=== PATIENT | female | born 1945 | race Caucasian/White ===

== ENCOUNTER 2023-03-09 06:06 | Inpatient (IN) ==
--- NOTE | 2023-03-09 07:07 | Emergency Department Note ---
History of Present Illness General Chief complaint: Dizziness Stated complaint: DIZZY,FALL Time Seen by Provider: 03/09/23 06:55 Source: patient, family ( who is at the bedside), RN notes reviewed and old records reviewed (I have reviewed records from [facility] emergency department from [id number]) Mode of arrival: ambulatory Limitations: no limitations History of Present Illness This patient is a 77-year-old female who comes in after feeling weak. She fell 2 days ago and since has been very weak she cannot get out of bed she feels dizzy and her legs feel weak bilaterally. She was seen in [facility] yesterday and she brought some of the records with her it looks like she did have a CAT scan of the head and labs they were all deemed unremarkable and she was sent home her says she cannot get out of bed without assistance. She has no focal numbness or weakness. Denies chest pain or shortness of breath denies pain anywhere did not hit her head or get knocked out no blood or melena stool no nausea or vomiting denies any injuries. She just feels diffusely weak in her legs. Home Medications Medication Instructions Recorded Confirmed Type omega-3 fatty acids 1,000 mg 1,000 mg PO DAILY #30 caps 09/12/20 03/09/23 Rx capsule Saccharomyces boulardii 250 mg 5,000 mmu cells PO DAILY 09/21/21 03/09/23 History capsule (Daily Probiotic (S. boulardii)) sennosides 8.6 mg tablet (Natural 8.6 mg PO DAILY 09/21/21 03/09/23 History Senna Laxative) biotin 2,500 mcg capsule 2,500 mcg PO QPM 03/22/22 03/09/23 History insulin aspart U-100 100 unit/mL See Rx Instructions subcut DAILY 03/22/22 03/09/23 History (3 mL) subcutaneous pen (Novolog PRN Other FlexPen U-100 Insulin aspart) lisinopril 20 mg tablet 20 mg PO QAM #90 tabs 06/12/22 03/09/23 Rx insulin NPH isoph U-100 human 100 22 unit subcut BID 09/30/22 03/09/23 History unit/mL subcutaneous suspension (Humulin N NPH U-100 Insulin (isophane susp)) venlafaxine 75 mg capsule,extended See Rx Instructions PO .COMPLEX 10/24/22 03/09/23 Rx release 24 hr #120 caps cholecalciferol (vitamin D3) 25 25 mcg PO QAM 11/25/22 03/09/23 History mcg (1,000 unit) capsule omeprazole 40 mg capsule,delayed 40 mg PO QAM 11/25/22 03/09/23 History release potassium chloride 10 mEq 10 meq PO QAM #30 caps 12/03/22 03/09/23 Rx capsule,extended release amlodipine 10 mg tablet (Norvasc) 10 mg PO DAILY #90 tabs 01/20/23 03/09/23 Rx alprazolam 0.5 mg tablet 0.5 mg PO TID anxiety #90 tabs 01/23/23 03/09/23 Rx metformin 500 mg tablet 500 mg PO BID #60 tabs 01/31/23 03/09/23 Rx alprazolam 0.5 mg tablet (Xanax) 0.5 mg PO TID 02/12/23 03/09/23 History rosuvastatin 10 mg tablet 10 mg PO DAILY #30 tabs 02/12/23 03/09/23 Rx metoprolol succinate 50 mg 50 mg PO DAILY #30 tabs 02/13/23 03/09/23 Rx tablet,extended release 24 hr meloxicam 7.5 mg tablet 7.5 mg PO BID #30 tabs 03/03/23 03/09/23 Rx Allergies Allergy/AdvReac Type Severity Reaction Status Date / Time adhesive tape Allergy Redness of Verified 02/13/23 10:29 Skin No Known Drug Allergies Allergy Verified 02/13/23 10:29 Past Med/Surg History Medical History Sleep apnea no device GERD (gastroesophageal reflux disease) Hypertension History of COVID-06 Feb 2021 > not hospitalized Moderate aortic valve stenosis follows with Dr. Pozo Anxiety and depression Diabetes mellitus type 2, insulin dependent Hyperlipidemia Surgical History History of rotator cuff surgery Operation Date: 12/30/22 07:30 Actual Procedures p Right Shoulder: Arthroscopy, massive rotator Cuff Repair, Subacromial Decompression(Right) - Cuco Mancia MD History of breast biopsy benign History of hysterectomy History of colonoscopy History of cataract surgery bilat S/P hysterectomy S/P hernia repair Family History Sister Myocardial infarction Anxiety Depression Heart disease Hypertension Lung disease Mother Anxiety Depression Brother Anxiety Depression Heart disease Hypertension Father Diabetes Heart disease Hypertension Denies family history of Colon cancer Ovarian cancer Prostate cancer Breast cancer Social History Smoking Status: Never smoker Second Hand Exposure: No; Do You Dip or Chew Tobacco: No; Hx Alcohol Use: No Hx Substance Use: No Preferred Language: Polish Communication Ability: Effective Visual Impairment: No Limitations Hearing Ability: Normal Facilities Technician Required: No Beliefs That Will Affect Care: None marital status: Current Living Situation: Spouse current occupational status: retired Feels Safe at Home: Yes Childhood Exposure to Second-Hand Smoke: No Diet: other Dental Care, Regularly: Yes Physical Activity Frequency: 1-2 Times per Week Seatbelt Use: always Sunscreen Use: Yes Assistive Devices: Cane, Raised Toilet Seat and Walker Review of Systems A total of 10 systems reviewed and were otherwise negative Physical Exam Vital Signs Vital Signs - 24 hr 03/09/23 06:12 03/09/23 06:30 03/09/23 07:00 Temperature 36.7 C Temperature Source Oral Pulse Rate 120 H 120 H 112 H Pulse Rate [Left Finger] Respiratory Rate 18 24 Respiratory Effort / Characteristics Non-Labored Spontaneous Respiratory Depth Normal Respiratory Pattern Regular Blood Pressure 154/71 H 153/74 H Blood Pressure [Left Arm] Blood Pressure Mean 98 110 Blood Pressure Mean [Left Arm] Blood Pressure Position Sitting Blood Pressure Position [Left Arm] Pulse Oximetry 95 98 Oxygen Delivery Method Room Air Sepsis Recent Fever Within 48 Hours No Sepsis New/Unexplained Change in Mental Status N/A Sepsis Action Taken by Nursing No Action Required 03/09/23 07:30 03/09/23 08:00 03/09/23 09:12 Temperature Temperature Source Pulse Rate 111 H 114 H 117 H Pulse Rate [Left Finger] Respiratory Rate 22 24 24 Respiratory Effort / Characteristics Respiratory Depth Respiratory Pattern Blood Pressure 170/79 H 148/93 H Blood Pressure [Left Arm] Blood Pressure Mean 128 112 Blood Pressure Mean [Left Arm] Blood Pressure Position Blood Pressure Position [Left Arm] Pulse Oximetry 98 96 Oxygen Delivery Method Sepsis Recent Fever Within 48 Hours Sepsis New/Unexplained Change in Mental Status Sepsis Action Taken by Nursing 03/09/23 10:12 Temperature Temperature Source Pulse Rate Pulse Rate [Left Finger] 77 Respiratory Rate 20 Respiratory Effort / Characteristics Respiratory Depth Respiratory Pattern Blood Pressure Blood Pressure [Left Arm] 171/118 H Blood Pressure Mean Blood Pressure Mean [Left Arm] 135 Blood Pressure Position Blood Pressure Position [Left Arm] Sitting Pulse Oximetry 98 Oxygen Delivery Method Sepsis Recent Fever Within 48 Hours Sepsis New/Unexplained Change in Mental Status Sepsis Action Taken by Nursing General: Well developed well nourished older female who appears in no acute distress, breathing comfortably on room air. Normal speech HEENT: Normal cephalic atraumatic. Pupils are equal round and reactive to light. Extraocular movements are intact. Oropharynx is pink with moist mucous membranes. No swelling of the mouth lips or tongue. Neck: Supple with a midline trachea. No meningeal signs or stiffness, no JVD or bruits. No Stridor. Chest: Clear to auscultation bilaterally. No wheezes or rhonchi. No increased work of breathing. Heart: Regular rate and rhythm. She is mildly tachycardic with a heart rate of about 115 without murmurs or gallops. Abdomen: Soft nontender, nondistended without rebound guarding or rigidity. Extremities: No cyanosis clubbing or edema. No calf tenderness or assymetry Spine/Back. Non tender to palpation. No CVA tenderness Skin: Good turgor without rashes. Neurologic exam: Cranial nerves two through 12 are intact. Motor and sensation are intact and symmetrical throughout. Course Administered Medications Discontinued Medications Lactated Ringer's (Lr) 1,000 mls @ 999 mls/hr IV .Q1H1M ONE Stop: 03/09/23 12:32 Last Admin: 03/09/23 12:46 Dose: 999 mls/hr Documented By: SEEMA Magnesium Sulfate/Dextrose (Magnesium Sulfate / D5w) 1 gm in 100 mls @ 100 mls/hr IV Q1H LO Stop: 03/09/23 13:31 Last Admin: 03/09/23 13:53 Dose: 100 mls/hr Documented By: Infusion: 03/09/23 13:46 Dose: Infused Documented By: Admin: 03/09/23 12:46 Dose: 100 mls/hr Documented By: SEEMA Magnesium Sulfate/Dextrose (Magnesium Sulfate 1gm / D5w Bag) Confirm Administered Dose 1 gm IV .STK-MED ONE Stop: 03/09/23 12:37 Last Admin: 03/09/23 12:46 Dose: Not Given Documented By: SEEMA Metoprolol Succinate (Metoprolol Succ 50mg Ext Rel Tab) 50 mg PO NOW STA Stop: 03/09/23 12:01 Last Admin: 03/09/23 13:55 Dose: 50 mg Documented By: SEEMA Medical Decision Making Differential Diagnosis Weakness, fall, dehydration, cardiac disease, traumatic injuries, arrhythmia, electrolyte or metabolic abnormality, anemia, endocrinologic Medical Records Attestation: I reviewed the patient's medical records. Home Medications Current Medication List: was personally reviewed by me Laboratory Data Attestation: I reviewed the patient's lab results. 03/09/23 08:44 03/09/23 08:44 Lab Results 03/09/23 03/09/23 03/09/23 Range/Units 08:44 08:54 10:10 WBC 5.35 (4.8-10.8) K/ul RBC 3.76 L (4.20-5.40) M/uL Hgb 11.7 L (12.0-16.0) g/dl Hct 35.3 L (37.0-47.0) % MCV 93.9 (80.0-100.0) fL MCH 31.1 (25.0-34.0) pg MCHC 33.1 (32.0-36.0) g/dL RDW Std Deviation 45.5 (36.4-46.3) fL RDW Coeff of Lori 13.2 (11.5-14.5) % Plt Count 224 (130-400) K/uL MPV 10.2 (9.4-12.4) fL Immature Gran % (Auto) 0.4 % Neut % (Auto) 82.2 % Lymph % (Auto) 12.9 % [place] % (Auto) 3.9 % Eos % (Auto) 0.0 % Baso % (Auto) 0.6 % Neut # (Auto) 4.40 (1.40-6.50) K/uL Lymph # (Auto) 0.69 L (1.20-3.40) K/uL [place] # (Auto) 0.21 (0.11-0.59) K/uL Eos # (Auto) 0.00 (0.00-0.50) K/uL Baso # (Auto) 0.03 (0.00-0.20) K/uL Immature Gran # (Auto) 0.02 (0.01-0.20) K/uL Sodium 131 L (136-145) mmol/L Potassium 3.9 (3.5-5.1) mmol/L Chloride 96 L (98-107) mmol/L Carbon Dioxide 26 (21-32) mmol/L Anion Gap 9 (3-11) BUN 14 (6-23) mg/dl Creatinine 0.68 (0.6-1.2) mg/dl Est Cr Clr Drug Dosing 64.4 ml/min Est GFR ( Amer) 96.4 ml/min Est GFR (Non-Af Amer) 83.2 ml/min BUN/Creatinine Ratio 20.6 H (10-20) Glucose 195 H (70-99(Fasting)) mg/dl Calcium 9.2 (8.6-10.3) mg/dl Magnesium 1.6 L (1.7-2.4) mg/dl Total Bilirubin 0.3 (0.2-1.0) mg/dl AST 51 H (13-39) U/L ALT 54 H (7-52) U/L Alkaline Phosphatase 80 (34-104) U/L Troponin I High Sens 16.5 H (0-14) pg/ml Total Protein 6.7 (6.0-8.3) gm/dl Albumin 3.5 (3.4-5.0) gm/dl Globulin 3.2 (2.5-4.0) gm/dl Albumin/Globulin Ratio 1.1 (0.9-2) Procalcitonin 0.28 (0-0.5) ng/ml TSH 0.468 (0.300-4.500) uIu/ml Urine Color Yellow Urine Appearance Clear (Clear) Urine pH 5.5 (4.5-7.5) Ur Specific [place] 1.016 (1.000-1.030) Urine Protein Negative (Negative) Urine Glucose (UA) Negative (Negative) Urine Ketones Trace H (Negative) Urine Blood Negative (Negative) Urine Nitrite Negative (Negative) Urine Bilirubin Negative (Negative) Urine Urobilinogen Negative (Negative) Ur Leukocyte Esterase Negative (Negative) Anaplasma Smear See Comment Babesia Smear See Comment Lyme Disease IgG Ab Negative (Negative) Lyme Disease IgM Ab Negative (Negative) SARS-CoV-2 (PCR) NEGATIVE (Negative) Imaging Data Attestation: I personally reviewed and interpreted this imaging study as follows: My Impression: Chest x-monica per my interpretationno acute infiltrate, failure, pneumothorax seen Head CTno hemorrhage or mass effect seen Radiologist's Impression: Chest X-Ray 03/09/23 07:57 XR chest 1V portable HISTORY: weakness COMPARISON: Chest 09/06/2021. FINDINGS: The cardiac silhouette remains mildly enlarged. The lungs are clear. No pleural effusions. No pneumothorax. No evidence for pulmonary edema. Mild elevation of the right hemidiaphragm, unchanged. IMPRESSION: No significant change compared to the prior study. No acute process. ACT 112: Negative or not required by law. Electronically signed by: London Rodriguez M.D. 03/09/2023 8:[address] 03/09/23 07:[address] DOSE: 625.8 mGy.cm HISTORY: Confusion. Altered mental status. weakness TECHNIQUE: Multiaxial CT images of the head were performed without the use of intravenous contrast. Automated exposure control was utilized for this study. A dose lowering technique was utilized adhering to the principles of ALARA. Comparison: Head CT 09/06/2021. Findings: The paranasal sinuses and mastoid air cells are clear. The calvarium and skull base are intact. There is no mass, hematoma, midline shift, acute infarct. White matter hypodensity is nonspecific but suggestive of microvascular ischemic change. The ventricles and sulci demonstrate mild age-related involutional changes. Impression: No acute intracranial abnormality. Atrophy and microvascular ischemic changes. ACT 112: Negative or not required by law. Electronically signed by: London Rodriguez M.D. 03/09/2023 9:25 AM Abdomen/Pelvis CT 03/09/23 10:[address] WITHOUT CONTRAST CT DOSE: 1320.27 mGy.cm HISTORY: eval for trauma-hip and back pain TECHNIQUE: Multiaxial CT images of the abdomen and pelvis were performed without contrast. A dose lowering technique was utilized adhering to the principles of ALARA. COMPARISON STUDY: None. FINDINGS: Respiratory motion artifact results in suboptimal evaluation of the lung bases. However, no focal lung consolidations identified. No acute fractures identified. Suture material noted within the lower midline abdominal wall. Degenerative changes again noted within the lower lumbar spine. Suboptimal evaluation of the solid abdominal viscera due to the lack of intravenous contrast. However, the unenhanced gallbladder, pancreas, spleen, and adrenal glands unremarkable. There is mild hepatic steatosis. No renal stones or hydronephrosis. There is a 2.8 cm hyperdense lesion within the left kidney. This is incompletely characters on this noncontrast study but may represent a hyperdense cyst. No retroperitoneal hematoma or lymphadenopathy. Mild calcified plaque within the normal caliber abdominal aorta. No pelvic lymphadenopathy or pelvic free fluid. Normal bladder. Prior hysterectomy. The appendix is surgically absent. Suboptimal evaluation for bowel pathology due to the lack of intravenous and oral contrast. However, there is no definite bowel wall thickening or obstruction. Colonic diverticulosis. No evidence for acute diverticulitis. IMPRESSION: 1. No acute traumatic process within the abdomen or pelvis. 2. No bowel wall thickening or obstruction. 3. Mild hepatic steatosis. 4. Colonic diverticulosis. No evidence for acute diverticulitis. 5. Degenerative changes within the lower lumbar spine again noted. 6. An indeterminate 2.8 cm hypodense lesion within the left kidney. This favors a hyperdense cyst. Follow-up nonemergent renal ultrasound can be used for confirmation. ACT 112: Negative or not required by law. Electronically signed by: London Rodriguez M.D. 03/09/2023 1:[address] 03/09/23 10:[address] DOSE: HISTORY: fall TECHNIQUE: Multiaxial CT images of the lumbar spine were performed and reformatted in the sagittal and coronal plane without the use of contrast. A dose lowering technique was utilized adhering to the principles of ALARA. COMPARISON: None. FINDINGS: No acute fractures within the lumbar spine. The visualized sacrum is intact. There is 4 mm of anterolisthesis of L4 on L5. This is likely due to long-standing degenerative change. Moderate to severe facet degenerative changes within the lower lumbar spine. This spaces are preserved. Paravertebral soft tissues are unremarkable. There is moderate central canal narrowing at L4-L5 due to a small broad-based posterior disc bulge and ligamentum flavum and facet hypertrophy. There is moderate central canal narrowing at L5-S1 due to a broad- based posterior disc bulge. IMPRESSION: 1. No fractures within the lumbar spine. 2. Degenerative changes as described above. ACT 112: Negative or not required by law. Electronically signed by: London Rodriguez M.D. 03/09/2023 12:55 PM ECG Data Attestation: I personally reviewed and interpreted this ECG as follows: Indication: + weakness Rate (beats per minute): 120 Rhythm: + sinus tachycardia ECG Intervals/blocks: + Incomplete right bundle branch block ECG [place]: + Normal ECG ST segments: + Nonspecific ST abnormalities ECG Findings: no PACs or no PVCs Comparison ECG Date: from (02/13/23) Change: no significant change MDM Narrative This patient comes in as scribed above. she is feeling generally weak and she fell a couple days ago denies any injuries or trauma. She feels dizzy when she stands. Blood work was obtained. IV access was was ordered. EKG shows sinus tachycardia without any ischemic changes and no change when compared to the old one. I have reviewed her labs from [facility] that were done yesterday. I did order multiple labs cardiac monitoring EKG chest x-ray and neuroimaging. She was reassessed frequently. On exam she has no focal neurologic deficit that she is seems diffusely weak. CAT scan of her head is unremarkable she has had some back and hip pain but some that seems chronic but I did do a CAT scan and there is no acute traumatic injuries seen she has no significant acrylate or metabolic abnormalities. Her feels she cannot take care of her at home and she is gotten increasingly more weak I think a lot of this is deconditioning after she had her shoulder surgery at the end of the summer she has never been quite the same. I do think that she needs to be admitted/observed for further treatment evaluation consulted the [facility] to see her for these measures. Continuous cardiac monitoring: Orders placed in EMR for continuous cart monitor: Upon my evaluation patient noted to be in sinus tachycardia with rate 115 Impression & Plan Weakness, Dizziness, Fall, Sinus tachycardia Discharge Plan Visit Data Chief Complaint: Dizziness Stated Complaint: DIZZY,FALL ED Provider: Brock Puentes Discharge Problem: Weakness, Dizziness, Fall, Sinus tachycardia Discharge Instructions Interventions: ED Discharge Assessment Last Done: 03/09/23 13:28 Discharge Problem: Fall Qualifiers: Encounter type: initial encounter Qualified Code(s): W19.XXXA - Unspecified fall, initial encounter
--- NOTE | 2023-03-09 08:45 | XRay Report ---
XR chest 1V portable HISTORY: weakness COMPARISON: Chest 09/06/2021. FINDINGS: The cardiac silhouette remains mildly enlarged. The lungs are clear. No pleural effusions. No pneumothorax. No evidence for pulmonary edema. Mild elevation of the right hemidiaphragm, unchange d. IMPRESSION: No significant change compared to the prior study. No acute process. ACT 112: Negative or not required by law. Electronically signed by: London Rodriguez M.D. 03/09/2023 8:43 AM
[2023-03-09 09:12] LABS: Appearance Urine Clear (Clear); Bilirubin Urine Negative (Negative); Blood Urine Negative (Negative); Color Urine Yellow; Glucose Urine UA Negative (Negative); Ketones Urine Trace (Negative); Leukocyte Esterase Urine Negative (Negative); Nitrite Urine Negative (Negative); Protein Urine Negative (Negative); Specific Gravity Urine 1.016 (1.000-1.030); Urobilinogen Urine Negative (Negative); pH Urine 5.5 (4.5-7.5)
[2023-03-09 09:15] LABS: Hematocrit (blood only) 35.3 % (37.0-47.0); Hemoglobin 11.7 g/dl (12.0-16.0); Mean Corpuscular Hemoglobin 31.1 pg (25.0-34.0); Mean Corpuscular Hgb Conc 33.1 g/dL (32.0-36.0); Mean Corpuscular Volume 93.9 fL (80.0-100.0); Mean Platelet Volume 10.2 fL (9.4-12.4); Platelet Count 224 K/uL (130-400); RDW Coefficient of Variation 13.2 % (11.5-14.5); RDW Standard Deviation 45.5 fL (36.4-46.3); Red Blood Count 3.76 M/uL (4.20-5.40); White Blood Count 5.35 K/ul (4.8-10.8)
--- NOTE | 2023-03-09 09:26 | CT Scan Report ---
HEAD CT NONCONTRAST CT DOSE: 625.8 mGy.cm HISTORY: Confusion. Altered mental status. weakness TECHNIQUE: Multiaxial CT images of the head were performed without the use of intravenous contrast. A utomated exposure control was utilized for this study. A dose lowering technique was utilized adheri ng to the principles of ALARA. Comparison: Head CT 09/06/2021. Findings: The paranasal sinuses and mastoid air cells are clear. The calvarium and skull base are int act. There is no mass, hematoma, midline shift, acute infarct. White matter hypodensity is nonspecifi c but suggestive of microvascular ischemic change. The ventricles and sulci demonstrate mild age-rela leatha involutional changes. Impression: No acute intracranial abnormality. Atrophy and microvascular ischemic changes. ACT 112: Negative or not required by law. Electronically signed by: London Rodriguez M.D. 03/09/2023 9:25 AM
[2023-03-09 09:34] LABS: Albumin Globulin Ratio 1.1 (0.9-2); Albumin Level 3.5 gm/dl (3.4-5.0); BUN Creatinine Ratio 20.6 (10-20); Bilirubin,Total 0.3 mg/dl (0.2-1.0); Calcium 9.2 mg/dl (8.6-10.3); Creatinine Clr Calc Pharmacy 64.4 ml/min; Est GFR (African American) 96.4 ml/min; Est GFR (Non-African American) 83.2 ml/min; Globulin 3.2 gm/dl (2.5-4.0); Magnesium 1.6 mg/dl (1.7-2.4); Potassium 3.9 mmol/L (3.5-5.1); Total Protein 6.7 gm/dl (6.0-8.3)
[2023-03-09 09:38] LABS: Basophils # (auto) 0.03 K/uL (0.00-0.20); Basophils % (auto) 0.6 %; Immature Granulocytes # (auto) 0.02 K/uL (0.01-0.20); Immature Granulocytes % (auto) 0.4 %; Lymphocytes # (auto) 0.69 K/uL (1.20-3.40); Lymphocytes % (auto) 12.9 %; Monocytes # (auto) 0.21 K/uL (0.11-0.59); Monocytes % (auto) 3.9 %; Neutrophils % (auto) 82.2 %
[2023-03-09 09:40] LABS: Troponin I High Sensitivity 16.5 pg/ml (0-14)
[2023-03-09 09:49] LABS: Thyroid Stimulating Hormone 0.468 uIu/ml (0.300-4.500)
--- NOTE | 2023-03-09 10:34 | History & Physical Report ---
Date of Service March 09, 2023 Assessment & Plan (1) Weakness: Plan: -Admit to med/tele -Currently stable and non-toxic appearing -Patient has been experiencing progressive, generalized weakness since her right rotator cuff repair in December -Has had 2 falls in the past 48 hours because of the weakness -CT head and chest xray WNL, no focal neuro defects on exam -At this time her progressive, generalized weakness appears to be associated with continued deconditioning since her rotator cuff repair -No obvious sign of infection at this time as WBC is WNL and she has been afebrile -She is lymphopenic with mildly elevated LFT's, will obtain blood cultures and tick borne workup for further evaluation -She has a mildly decreased Hct of 35, will obtain iron studies, B12, Folic acid, and B1 levels -Also noted to have a mag of 1.6, will obtain phos level -Is covid 19 negative, will obtain full respiratory biofire to rule out other viral illnesses that could be contributing -Fall and aspiration precautions -PT/OT consults -Will give 1L LR on admission as she appears dehydrated -SQ lovenox for DVT PPX -AM CBC, CMP, mag, PT/INR (2) Fall: Plan: -Has had 2 falls in the last 48 hours -CT head and CXR were WNL -Mild lumbar spine, right buttocks, and right hip pain -Bruising on the dorsal aspect of the right foot -Will follow lumbar/abd/pelvis CT's and will obtain xray of the right foot -Fall precautions, PT/OT -Continue to monitor on tele (3) Lightheadedness: Plan: -Sounds more consistent with possible orthostasis as it occurs when she stands -Denies other neuro symptoms -Is dehydrated on exam today, will give 1L LR on admission -Will hold amlodipine but continue lisinopril and metoprolol for now -Monitor on tele -Will obtain repeat echo (4) Elevated LFTs: Plan: -AST and ALT minimally elevated today -Denies alcohol use or significant acetaminophen use -Will follow tick borne workup and CT of abd/pelvis -Hold hepatotoxic agents -Trend CMP daily until stable (5) Tachycardia: Plan: -Sinus tachycardia on ECG -Likely due to dehydration and significant anxiety -Denies chest pain, heart palpitations, SOB -Continue infectious BLUM -Continue to monitor on tele, Echo -IV fluids -Will give am dose of metoprolol as she missed it because of ED arrival (6) Elevated troponin: Plan: -Initial high sen trop at 16 -Patient denies chest pain, MORRIS, SOB -No acute ST segment or T-wave changes -Likely due demand from recent falls -Will obtain 2 hour repeat, monitor on tele -Follow echo (7) Hypomagnesemia: Plan: -1.6 in the ED -Likely due to poor oral intake -Will give 2 bags, 1gm mag sulfate -Monitor on tele, monitor am mag level (8) Hypertension: Plan: -Stable -Hold amlodipine in case of orthostasis -Continue metoprolol and lisinopril for now (9) Sleep apnea: Plan: -HS CPAP ordered (10) Diabetes mellitus type 2, insulin dependent: Plan: -Hold metformin -Monitor BSG ACHS, goal is 110-140 -Will start conservative management due to poor oral intake -CF of 50 ACHS and 5 units lantus BID -HH/DMII diet -AM A1c -Pharmacy glycemic consult (11) Anxiety and depression: Plan: -Continue Venlafaxine -Will continue TID xanax for now to prevent withdrawal but would recommend trying to wean as able Plan The patient was discussed with Dr. Bauman at the time of the admission History of Present Illness Chief Complaint: Dizziness, BL LE weakness Primary Care Provider: Lilian Oh MD Dorita is a 77 year old female with a PMH significant for anxiety/depression, DMII with peripheral neuropathy, hyperlipidemia, HTN, JONATHON, moderate aortic stenosis, and OA who presented to the [facility] ED on 03/09 with her for generalized weakness, ambulatory dysfunction, dizziness, and recent fall. She was noted to be tachycardic with HR of 120 but was otherwise stable. Labs were significant for lymphopenia of 0.69, sodium of 133, mag of 1.6, AST of 51, ALT of 54, and initial high sen trop of 16.5. CT head wo con was read as "No acute intracranial abnormality. Atrophy and microvascular ischemic changes. ". Chest xray was read as "No significant change compared to the prior study. No acute process.". ECG showed sinus tachycardiac without acute ST segment or T-wave changes compared to previous. We were asked to admit the patient for ongoing weakness and possible rehab/snf placement. At the time of the exam the patient was sitting in bed in no acute distress with her sitting bedside, history was obtained from both. They state that since the patient's right rotator cuff repair in December she has had a continued clinical decline. They state that she did go to a SNF for rehab after her shoulder surgery but she did not feel as though it helped her weakness. Over the past few weeks she has had poor oral intake, poor sleep, and has had 2 falls out of bed in the past 48 hours. The first fall occurred when she was rolling in bed and didn't realize how close to the edge of the bed she was. She rolled out of bed, landed on her left side, and was stuck between the bed and bedside table. Her helped her up once she woke him by yelling, they are unsure how long she was on the ground for. She was evaluated in the [facility] ED after the fall where they did a CT head and labs. They gave her IV fluids and discharged her home. This am she tried to get out of bed herself to go to the bathroom around 0500. Her legs were too weak when standing and she fell to the ground. She denies hitting her head or losing consciousness. She confirms that her weakness is generalized and symmetrical. She does note lightheadedness when standing over the past 2-3 months. She denies the sensation that the room is spinning, changes in vision, hearing, taste, smell, paresthesias, unilateral weakness[place] not noticed any insect bites that they know of. She still has significant pain and weakness in her right shoulder since the rotator cuff repair. She denies fever, chest pain, SOB, cough, nausea, vomiting, abd pain, dysuria, hematuria, melena, diarrhea, bloody BM's, and increased LE swelling. She currently has mild right buttocks/hip pain and low back pain since her falls. They confirm that they want her to go to inpatient rehab on discharge before trying to go back home. She is a DNR/DNI and her would be her primary decision maker if she can't make decisions herself. Please refer to Dr. Bauman's attestation for any changes to the treatment plan Allergies Allergy/AdvReac Type Severity Reaction Status Date / Time adhesive tape Allergy Redness of Verified 02/13/23 10:29 Skin No Known Drug Allergies Allergy Verified 02/13/23 10:29 Home Medications Medication Instructions Recorded Confirmed Type omega-3 fatty acids 1,000 mg 1,000 mg PO DAILY #30 caps 09/12/20 03/09/23 Rx capsule Saccharomyces boulardii 250 mg 5,000 mmu cells PO DAILY 09/21/21 03/09/23 History capsule (Daily Probiotic (S. boulardii)) sennosides 8.6 mg tablet (Natural 8.6 mg PO DAILY 09/21/21 03/09/23 History Senna Laxative) biotin 2,500 mcg capsule 2,500 mcg PO QPM 03/22/22 03/09/23 History insulin aspart U-100 100 unit/mL See Rx Instructions subcut DAILY 03/22/22 03/09/23 History (3 mL) subcutaneous pen (Novolog PRN Other FlexPen U-100 Insulin aspart) lisinopril 20 mg tablet 20 mg PO QAM #90 tabs 06/12/22 03/09/23 Rx insulin NPH isoph U-100 human 100 22 unit subcut BID 09/30/22 03/09/23 History unit/mL subcutaneous suspension (Humulin N NPH U-100 Insulin (isophane susp)) venlafaxine 75 mg capsule,extended See Rx Instructions PO .COMPLEX 10/24/22 03/09/23 Rx release 24 hr #120 caps cholecalciferol (vitamin D3) 25 25 mcg PO QAM 11/25/22 03/09/23 History mcg (1,000 unit) capsule omeprazole 40 mg capsule,delayed 40 mg PO QAM 11/25/22 03/09/23 History release potassium chloride 10 mEq 10 meq PO QAM #30 caps 12/03/22 03/09/23 Rx capsule,extended release amlodipine 10 mg tablet (Norvasc) 10 mg PO DAILY #90 tabs 01/20/23 03/09/23 Rx alprazolam 0.5 mg tablet 0.5 mg PO TID anxiety #90 tabs 01/23/23 03/09/23 Rx metformin 500 mg tablet 500 mg PO BID #60 tabs 01/31/23 03/09/23 Rx alprazolam 0.5 mg tablet (Xanax) 0.5 mg PO TID 02/12/23 03/09/23 History rosuvastatin 10 mg tablet 10 mg PO DAILY #30 tabs 02/12/23 03/09/23 Rx metoprolol succinate 50 mg 50 mg PO DAILY #30 tabs 02/13/23 03/09/23 Rx tablet,extended release 24 hr meloxicam 7.5 mg tablet 7.5 mg PO BID #30 tabs 03/03/23 03/09/23 Rx Past Med/Surg History Medical History Sleep apnea no device GERD (gastroesophageal reflux disease) Hypertension History of COVID-06 Feb 2021 > not hospitalized Moderate aortic valve stenosis follows with Dr. Pozo Anxiety and depression Diabetes mellitus type 2, insulin dependent Hyperlipidemia Surgical History History of rotator cuff surgery Operation Date: 12/30/22 07:30 Actual Procedures p Right Shoulder: Arthroscopy, massive rotator Cuff Repair, Subacromial Decompression(Right) - Cuco Mancia MD History of breast biopsy benign History of hysterectomy History of colonoscopy History of cataract surgery bilat S/P hysterectomy S/P hernia repair Family History Sister Myocardial infarction Anxiety Depression Heart disease Hypertension Lung disease Mother Anxiety Depression Brother Anxiety Depression Heart disease Hypertension Father Diabetes Heart disease Hypertension Denies family history of Colon cancer Ovarian cancer Prostate cancer Breast cancer Social History Smoking Status: Never smoker Second Hand Exposure: No; Do You Dip or Chew Tobacco: No; Hx Alcohol Use: No Hx Substance Use: No Preferred Language: Spanish Communication Ability: Effective Visual Impairment: No Limitations Hearing Ability: Normal Humanities Division Chair Required: No Beliefs That Will Affect Care: None marital status: Current Living Situation: Spouse current occupational status: retired Other Information That Helps Us Care for You: No Feels Safe at Home: Yes Safety Concerns: Feels Safe At This Time Childhood Exposure to Second-Hand Smoke: No Diet: other Dental Care, Regularly: Yes Physical Activity Frequency: 1-2 Times per Week Seatbelt Use: always Sunscreen Use: Yes Assistive Devices: Cane, Glasses and Walker Physical Exam Physical Exam: Physical Exam: General: In no acute distress, stated age, well-nourished, fatigued but non- toxic appearing HEENT: Normocephalic, atraumatic, no scleral icterus, pupils around round, symmetrical, and reactive to light, dry mucus membranes, trachea midline, no thyromegaly Chest/Pulm: No respiratory distress, symmetrical chest expansion, clear breath sounds throughout Cardiac: RRR, 3/6 systolic murmur noted Abdomen: Negative for ascites and bruising, normoactive bowel sounds, soft, non-tender to palpation throughout Musculoskeletal: No acute trauma on inspection and palpation of the face, head, cervical spine, thoracic spine, BL UE's, abd, and LLE. Patient with tenderness to palpation over the lumbar spine, right buttocks, right hip, and bruising over the medial, dorsal aspect of the right foot. Intact and symmetrical ROM of the LE's Extremities: Radial, dorsalis pedis, and posterior tibial pulses are intact and symmetrical, no edema noted in the LE's Skin: Warm, dry, no rashes , lesions, or scars noted Neuro: Alert and oriented to person, place, month, year, and president, no focal defects, CN II-XII tested and intact, no tremors noted Psych: No acute distress, calm and cooperative during the exam Results & Data Results & Data Vital Signs (Past 12 Hours) Vital Signs Temp Pulse Pulse Resp BP BP Pulse Ox 03/09/23 10:12 77 20 171/118 H 98 03/09/23 09:12 117 H 24 148/93 H 96 03/09/23 08:00 114 H 24 170/79 H 98 03/09/23 07:30 111 H 22 03/09/23 07:00 112 H 24 153/74 H 98 03/09/23 06:30 120 H 03/09/23 06:12 36.7 C 120 H 18 154/71 H 95 O2 Del Method 03/09/23 10:12 03/09/23 09:12 03/09/23 08:00 03/09/23 07:30 03/09/23 07:00 03/09/23 06:30 03/09/23 06:12 Room Air Laboratory Results Abnormal lab results 03/09/23 03/09/23 Range/Units 08:44 08:54 RBC 3.76 L (4.20-5.40) M/uL Hgb 11.7 L (12.0-16.0) g/dl Hct 35.3 L (37.0-47.0) % Lymph # (Auto) 0.69 L (1.20-3.40) K/uL Sodium 131 L (136-145) mmol/L Chloride 96 L (98-107) mmol/L BUN/Creatinine Ratio 20.6 H (10-20) Glucose 195 H (70-99(Fasting)) mg/dl Magnesium 1.6 L (1.7-2.4) mg/dl AST 51 H (13-39) U/L ALT 54 H (7-52) U/L Troponin I High Sens 16.5 H (0-14) pg/ml Urine Ketones Trace H (Negative) Diagnostic Findings Chest X-Ray 03/09/23 07:57 XR chest 1V portable HISTORY: weakness COMPARISON: Chest 09/06/2021. FINDINGS: The cardiac silhouette remains mildly enlarged. The lungs are clear. No pleural effusions. No pneumothorax. No evidence for pulmonary edema. Mild elevation of the right hemidiaphragm, unchanged. IMPRESSION: No significant change compared to the prior study. No acute process. ACT 112: Negative or not required by law. Electronically signed by: London Rodriguez M.D. 03/09/2023 8:[address] 03/09/23 07:[address] DOSE: 625.8 mGy.cm HISTORY: Confusion. Altered mental status. weakness TECHNIQUE: Multiaxial CT images of the head were performed without the use of intravenous contrast. Automated exposure control was utilized for this study. A dose lowering technique was utilized adhering to the principles of ALARA. Comparison: Head CT 09/06/2021. Findings: The paranasal sinuses and mastoid air cells are clear. The calvarium and skull base are intact. There is no mass, hematoma, midline shift, acute infarct. White matter hypodensity is nonspecific but suggestive of microvascular ischemic change. The ventricles and sulci demonstrate mild age-related involutional changes. Impression: No acute intracranial abnormality. Atrophy and microvascular ischemic changes. ACT 112: Negative or not required by law. Electronically signed by: London Rodriguez M.D. 03/09/2023 9:25 AM ECG Additional Comments: Sinus tachycardia Incomplete right bundle branch block Nonspecific ST abnormality Abnormal ECG When compared with ECG of 13-FEB-2023 10:47, (unconfirmed) No significant change was found Code Status & VTE Plan Code Status DNR/DNI VTE Prophylaxis Plan VTE Prophylaxis will be ordered: Yes Supervising Physician Co-Signing Physician Notes I personally saw and examined the patient. I verified all vasquez points and agree with Cuco Prajapati PA-C with the following exceptions and/or additions: 77 year old female presents to the ER with generalized weakness. Difficult to get a good timeline history from the patient. Per having progressive worsening symptoms since her shoulder surgery. no longer at bedside when seen. Per the patient she reports being unable to move her arms or legs despite using her phone when seen and objectively moving all 4 extremities. Cardiology notes fatigue being a longstanding issue with her therefore not clear this is acute. [place] not to be safe at home at this time. O/E A&Ox3, HS RRR, LUSB systolic murmur, Chest CTAB, Abdo SNT, no CVA tenderness, CN 2-> 12 intact, no UE co-ordination deficit, 5/5 power in all 4 extremities without sensation loss A/P Generalized weakness - suspect this is longstanding from her prior notes in EHR although will keep an open mind given clear concern from her and patient about a more acute deterioration. Generalized fatigue and confusion possibly points towards infective source although UA negative, procalcitonin negative, no source on history of exam, WBC normal - follow up blood cultures but no current indication for antibiotics. Tick borne labs also taken but nothing noted on smear. Most likely iatrogenic cause is her benzodiazepines - Will decrease Xanax to 0.25mg PO BID (she reports taking regularly 0.5mg PO BID). Patient does not endorse medications changes however atorvastatin started 01/04 and recently switched to rosuvastatin - despite CK normal will also hold statins due to possibility of myalgias from this. Possibility of PMR and ESR/CRP noted slightly elevated therefore could consider steroid trial once infection ruled out with blood cultures but certainly symptoms not typical of this as she doesn't exhibit stiffness. B12 level normal. Mg level low but do not suspect contributory. Doubtful hyponatremia contributory - will just repeat with AM labs. PT/OT - suspect will need placement for PT on discharge. She has no focal deficit on exam therefore do not suspect stroke or spinal pathology. PG Care Time/CCT Total # of Minutes Spent Total Time Spent with Patient: Total time spent is greater than 50% in coordination of care (as documented) at patient's floor/unit and/or counseling patient: Coding [place] [address] INT INP/OBS CARE 3/75MIN Patient Type Established Medical Decision Making Moderate Complexity Diagnoses Weakness R53.1 Fall W19.XXXA Encounter type: initial encounter Lightheadedness R42 Elevated LFTs R79.89 Tachycardia R00.0 Elevated troponin R79.89 Hypomagnesemia E83.42 Hypertension I10 Sleep apnea G47.30 Diabetes mellitus type 2, insulin dependent E11.9; Z79.4 Anxiety and depression F41.9; F32.9 (2) Fall Encounter type: initial encounter Qualified Code(s): W19.XXXA - Unspecified fall, initial encounter
[2023-03-09] MEDS ORDERED: LACTATED RINGER'S 1,000 ML IV ONE (11:32)
[2023-03-09] MEDS ORDERED: GLUCOSE 10 TAB/TUBE PO PRN (11:53)
[2023-03-09] MEDS ORDERED: CARBOHYDRATES FOR HYPOGLYCEMIA PO PRN (11:53)
[2023-03-09] MEDS ORDERED: DEXTROSE 50% 50 ML SYRINGE IV PRN (11:53)
[2023-03-09] MEDS ORDERED: GLUCOSE 40% GEL 15 GM TUBE PO PRN (11:53)
[2023-03-09] MEDS ORDERED: PHARMACY GLYCEMIC MGMT CONSULT PRN (11:53)
[2023-03-09] MEDS ORDERED: GLUCAGON FOR INJ 1 MG VIAL SQ PRN (11:53)
[2023-03-09] MEDS ORDERED: METOPROLOL SUCC 50MG EXT REL TAB PO STA (12:00)
[2023-03-09 12:21] LABS: Procalcitonin 0.28 ng/ml (0-0.5)
[2023-03-09 12:27] LABS: Lyme Ab IgG w/WB Rflx Negative (Negative); Lyme Ab IgM w/WB Rflx Negative (Negative)
[2023-03-09] MEDS ORDERED: MAGNESIUM SULFATE 1GM / D5W BAG IV ONE (12:36)
[2023-03-09] MEDS: MAGNESIUM SULFATE / D5W 1 GM/100 ML BAG IV SCH ×2 (12:46→13:53)
--- NOTE | 2023-03-09 12:56 | CT Scan Report ---
LUMBAR SPINE CT CT DOSE: HISTORY: fall TECHNIQUE: Multiaxial CT images of the lumbar spine were performed and reformatted in the sagittal an d coronal plane without the use of contrast. A dose lowering technique was utilized adhering to the principles of ALARA. COMPARISON: None. FINDINGS: No acute fractures within the lumbar spine. The visualized sacrum is intact. There is 4 mm of anterolisthesis of L4 on L5. This is likely due to long-standing degenerative change. Moderate to severe facet degenerative changes within the lower lumbar spine. This spaces are preserved. Paraverte bral soft tissues are unremarkable. There is moderate central canal narrowing at L4-L5 due to a small broad-based posterior disc bulge and ligamentum flavum and facet hypertrophy. There is moderate cent ral canal narrowing at L5-S1 due to a broad-based posterior disc bulge. IMPRESSION: 1. No fractures within the lumbar spine. 2. Degenerative changes as described above. ACT 112: Negative or not required by law. Electronically signed by: London Rodriguez M.D. 03/09/2023 12:55 PM
--- NOTE | 2023-03-09 13:03 | CT Scan Report ---
ABDOMEN AND PELVIS CT WITHOUT CONTRAST CT DOSE: 1320.27 mGy.cm HISTORY: eval for trauma-hip and back pain TECHNIQUE: Multiaxial CT images of the abdomen and pelvis were performed without contrast. A dose lo wering technique was utilized adhering to the principles of ALARA. COMPARISON STUDY: None. FINDINGS: Respiratory motion artifact results in suboptimal evaluation of the lung bases. However, no focal lung consolidations identified. No acute fractures identified. Suture material noted within th e lower midline abdominal wall. Degenerative changes again noted within the lower lumbar spine. Subop timal evaluation of the solid abdominal viscera due to the lack of intravenous contrast. However, the unenhanced gallbladder, pancreas, spleen, and adrenal glands unremarkable. There is mild hepatic alexander atosis. No renal stones or hydronephrosis. There is a 2.8 cm hyperdense lesion within the left kidney . This is incompletely characters on this noncontrast study but may represent a hyperdense cyst. No r etroperitoneal hematoma or lymphadenopathy. Mild calcified plaque within the normal caliber abdominal aorta. No pelvic lymphadenopathy or pelvic free fluid. Normal bladder. Prior hysterectomy. The appen americo is surgically absent. Suboptimal evaluation for bowel pathology due to the lack of intravenous an d oral contrast. However, there is no definite bowel wall thickening or obstruction. Colonic divertic ulosis. No evidence for acute diverticulitis. IMPRESSION: 1. No acute traumatic process within the abdomen or pelvis. 2. No bowel wall thickening or obstruction. 3. Mild hepatic steatosis. 4. Colonic diverticulosis. No evidence for acute diverticulitis. 5. Degenerative changes within the lower lumbar spine again noted. 6. An indeterminate 2.8 cm hypodense lesion within the left kidney. This favors a hyperdense cyst. Fo llow-up nonemergent renal ultrasound can be used for confirmation. ACT 112: Negative or not required by law. Electronically signed by: London Rodriguez M.D. 03/09/2023 1:01 PM
[2023-03-09 13:15] LABS: Phosphorus 2.7 mg/dl (2.5-4.9)
[2023-03-09 13:21] LABS: Troponin I High Sensitivity 17.6 pg/ml (0-14)
--- NOTE | 2023-03-09 13:22 | XRay Report ---
XR foot RT min 3V routine CLINICAL HISTORY: fall, right foot bruising/pain COMPARISON STUDY: None. FINDINGS: No fracture or dislocation within the right foot. Mild vascular calcifications are noted. N o significant soft tissue swelling. Prkt-uc-iyevoyos degenerative changes seen throughout the right f oot. No radiopaque foreign bodies. The Lisfranc joint is aligned. IMPRESSION: No acute fractures within the right foot. ACT 112: Negative or not required by law. Electronically signed by: London Rodriguez M.D. 03/09/2023 1:20 PM
[2023-03-09 13:40] LABS: Folate (Folic Acid),Ser orPlas > 22.30 ng/ml (>5.38)
[2023-03-09 13:41] LABS: Vitamin B12 631 pg/ml (180-914)
[2023-03-09] MEDS ORDERED: ALPRAZolam 0.5 MG TABLET PO SCH ×2 (14:00)
--- NOTE | 2023-03-09 14:50 | Pharmacy Report ---
Pharmacy Glycemic Short Note 2 - Date of Service March 09, 2023 - Glycemic Short BSG Results (Last 24 hours): 03/09/23 03/09/23 08:44 13:59 Glucose 195 H POC Glucose 177 H OUTPATIENT ANTIDIABETIC REGIMEN: * Novolin N 20-22 units SC BID * Novolog SC SSI * Metformin 500 mg PO BIDM * HbA1c pending ASSESSMENT: * 77 yo F admitted on 03/09/23 secondary to generalized weakness and ambulatory dysfunction. Pharmacy has been consulted to assist with inpatient glycemic management. Patient is a Type 2 diabetic as an outpatient. Please refer to outpatient regimen and most recent HbA1c above. * BSG this AM was 195 mg/dL. Lunchtime BSG was 177 mg/dL. Last doses of insulin/metformin was last night. * Insulin will be based on previous admission data. Basal with dinner tonight. Reassess tomorrow. Novolog per weight/stress of 3 which is similar to previous admission. PLAN FOR INPATIENT GLYCEMIC CONTROL: * Hold outpatient oral diabetes medications * Basal insulin * Lantus 20 units SC w/ dinner * Bolus insulin * NovoLog per scale ACHS or Q6hrs while NPO * Goal Range: Low 110 mg/dL - High 140 mg/dL * Correction Factor: 20 mg/dL/unit * Nutritional / Prandial insulin per carb ratio of 1 unit per 7 grams CHO consumed
[2023-03-09 14:52] LABS: Adenovirus PCR Not Detected (NotDetected); Bordetella parapertussis PCR Not Detected (NotDetected); Bordetella pertussis PCR Not Detected (NotDetected); Chlamydia pneumoniae PCR Not Detected (NotDetected); Coronavirus 229E PCR Not Detected (NotDetected); Coronavirus CoV-2 (COVID19)PCR Not Detected (NotDetected); Coronavirus HKU1 PCR Not Detected (NotDetected); Coronavirus NL63 PCR Not Detected (NotDetected); Coronavirus OC43PCR Not Detected (NotDetected); Human Metapneumovirus PCR Not Detected (NotDetected); Influenza A PCR Not Detected (NotDetected); Influenza B PCR Not Detected (NotDetected); Mycoplasma pneumoniae PCR Not Detected (NotDetected); Parainfluenza Virus 1 PCR Not Detected (NotDetected); Parainfluenza Virus 2 PCR Not Detected (NotDetected); Parainfluenza Virus 3 PCR Not Detected (NotDetected); Parainfluenza Virus 4 PCR Not Detected (NotDetected); Respiratory Syncytial VirusPCR Not Detected (NotDetected); Rhinovirus/Enterovirus PCR Not Detected (NotDetected)
[2023-03-09 15:36] LABS: Ferritin 246.7 ng/ml (8-388)
[2023-03-09 16:00] LABS: C Reactive Protein 9.92 mg/dl (0-0.5)
[2023-03-09] MEDS ORDERED: LANTUS PER UNIT CHARGE SQ SCH (16:30)
[2023-03-09] MEDS ORDERED: INSULIN ASPART PER UNIT CHARGE SC SCH (16:30)
[2023-03-09] MEDS: ENOXAPARIN INJ 40 MG/0.4 ML SYR SQ SCH (17:04)
[2023-03-09] MEDS: INSULIN ASPART PER UNIT CHARGE SC SCH ×3 (18:50→22:07)
--- NOTE | 2023-03-09 21:42 | XCELERA ---
[id number]
[2023-03-09] MEDS ORDERED: ALPRAZolam 0.5 MG TABLET ONE (22:03)
[2023-03-09] MEDS: VENLAFAXINE HCL XR 75 MG CAPXR PO SCH (22:07)
[2023-03-09] MEDS: ALPRAZolam 0.25 MG TABLET PO SCH (22:07)
[2023-03-10] MEDS ORDERED: HALOPERIDOL LACTATE 5 MG/ML 1 ML VIAL IM STA (00:31)
[2023-03-10] MEDS: ACETAMINOPHEN 325 MG TAB PO PRN ×2 (00:50→05:47)
[2023-03-10 06:16] LABS: Basophils # (auto) 0.01 K/uL (0.00-0.20); Basophils % (auto) 0.2 %; Hematocrit (blood only) 37.4 % (37.0-47.0); Hemoglobin 12.6 g/dl (12.0-16.0); Immature Granulocytes # (auto) 0.02 K/uL (0.01-0.20); Immature Granulocytes % (auto) 0.4 %; Lymphocytes # (auto) 1.03 K/uL (1.20-3.40); Lymphocytes % (auto) 20.2 %; Mean Corpuscular Hemoglobin 30.8 pg (25.0-34.0); Mean Corpuscular Hgb Conc 33.7 g/dL (32.0-36.0); Mean Corpuscular Volume 91.4 fL (80.0-100.0); Mean Platelet Volume 10.6 fL (9.4-12.4); Monocytes # (auto) 0.22 K/uL (0.11-0.59); Monocytes % (auto) 4.3 %; Neutrophils # (auto) 3.83 K/uL (1.40-6.50); Neutrophils % (auto) 74.9 %; Platelet Count 151 K/uL (130-400); RDW Standard Deviation 43.8 fL (36.4-46.3); Red Blood Count 4.09 M/uL (4.20-5.40); White Blood Count 5.11 K/ul (4.8-10.8)
[2023-03-10] MEDS ORDERED: PIPERACILLIN/TAZOBACTAM 4.5 GM in DEXTROSE 5% MINI-B 100 ML IV STA (06:21)
--- NOTE | 2023-03-10 06:21 | Communication Note ---
Date of Service: March 10, 2023 I was notified by the nurse that the patient developed a fever of 38.6 and became tachycardic with a heart rate of 108 Blood cultures were obtained CRP as well as lactate I ordered IV Zosyn empirically
[2023-03-10 06:23] LABS: Albumin Level 3.5 gm/dl (3.4-5.0); BUN Creatinine Ratio 14.7 (10-20); Bilirubin,Total 0.4 mg/dl (0.2-1.0); Creatinine Clr Calc Pharmacy 58.4 ml/min; Est GFR (African American) 87.9 ml/min; Est GFR (Non-African American) 75.8 ml/min; Globulin 3.5 gm/dl (2.5-4.0); Magnesium 1.9 mg/dl (1.7-2.4); Potassium 4.5 mmol/L (3.5-5.1)
[2023-03-10 06:35] LABS: Prothrombin Time 10.5 Seconds (9.0-12.0)
--- NOTE | 2023-03-10 07:45 | Hospitalist Progress Note ---
Date of Service March 10, 2023 Assessment & Plan (1) Weakness: Plan: -Differential infectious vs polypharmacy vs deconditioning -Patient has been experiencing progressive, generalized weakness since her right rotator cuff repair in December, but family states she has had an overall decline over past year -Has had 2 falls in the past 48 hours because of the weakness -CT head and chest xray WNL, no focal neuro defects on exam -She is lymphopenic with mildly elevated LFT's, blood cultures pending and initial tick borne panel negative -Fall and aspiration precautions -PT/OT consults (2) Fever of unknown origin: Plan: - no obvious concern of infection - s/p dose of Zosyn, plan to hold further antibiotics for now - will continue to monitor and trend CRP daily - given transaminitis if fever recurs would add doxycycline - blood cultures pending and initial tick borne panel negative (3) Fall: Plan: -Has had 2 falls in the last 48 hours -CT head and CXR were WNL -Mild lumbar spine, right buttocks, and right hip pain -Bruising on the dorsal aspect of the right foot -Lumbar/abd/pelvis CT's, xray of the right foot without acute findings -Fall precautions, PT/OT -Continue to monitor on tele (4) Lightheadedness: Plan: -Sounds more consistent with possible orthostasis as it occurs when she stands -Denies other neuro symptoms -Will hold amlodipine but continue lisinopril and metoprolol for now -Monitor on tele -repeat echo with EF= 55-60%, moderate (5) Elevated LFTs: Plan: -AST and ALT minimally elevated today -Denies alcohol use or significant acetaminophen use -Will follow tick borne workup (6) Tachycardia: Plan: -Sinus tachycardia on ECG -Likely due to dehydration and significant anxiety -Denies chest pain, heart palpitations, SOB -F/u blood cultures -Continue to monitor on tele (7) Elevated troponin: Plan: -Initial high sen trop at 16, repeat 17 -Patient denies chest pain, MORRIS, SOB -No acute ST segment or T-wave changes -Likely due demand from recent falls (8) Hypomagnesemia: Plan: - repleted in the ED, continue to trend (9) Hypertension: Plan: -Stable -Hold amlodipine in case of orthostasis -Continue metoprolol and lisinopril for now (10) Sleep apnea: Plan: -HS CPAP ordered (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, insulin dependent: Plan: -Hold metformin -Monitor BSG ACHS, goal is 110-140 -Will start conservative management due to poor oral intake -CF of 50 ACHS and 5 units lantus BID -HH/DMII diet -A1c= 7.1 -Pharmacy glycemic consult (12) Anxiety and depression: Plan: -Continue Venlafaxine -Will decrease TID xanax from 0.5mg to 0.25mg with goal of weaning off as outpatient (13) Renal cyst: Plan: - noted on CT; f/u with US Admission and Anticipated Discharge Date Admission Date: March 09, 2023 Supervising Physician Co-Signing Physician Notes I personally examined the patient and verified all vasquez points of history and exam, discussed case, and agree with decision making with Dr Eric Samano. Family all concerned about her medications. Vitals noted, in general she is awake and alert pleasant but fatigued no distress. HEENT normocephalic atraumatic mucous membranes moist. Breathing unlabored no accessory muscle use good effort. Skin shows no rashes no pallor or icterus. Neuro without focal deficits. Weakness/failure to thriveprobably multifactorial. Agree with family that polypharmacy likely plays a rolereduce alprazolam, obviously will be a long time to weanright now she has been placed on 0.25 twice daily, given that she was taking 0.5 is much as 3 times daily4 times daily recently, should she show any signs of withdrawal, we may need to stabilize at 0.25 3 times daily for a while and then reduce from there, at this point however, she appears okay on the 0.25 twice daily so we will keep her at that. I also wondered about her antihypertensives as part of the polypharmacy milieubut given her blood pressures right now, it does not really appear that she is on too much medicationwe will follow this closely. Deconditioning almost certainly plays a role as wellPT/OT eval and treat, discussed that she will likely need rehab/subacute rehab again. DVT prophylaxis with Lovenox. Otherwise as above. Feverone-time fever, no clear etiology, nothing appearing overt for bacterial infectionswe will hold further Zosyn for now, serial exams/serial labs. Subjective Pt seen at bedside this morning. tired but easily arousable and answering qu estions appropriately. Spoke with sister and niece at bedside, concern for polypharmacy and unsure of amount of medications she was taking at home. Review of Systems Review of Systems: As per above Physical Exam Physical Exam: Constitutional: well-appearing, no acute distress HEENT: NCAT, no conjunctival injection CV: regular rhythm, no murmur appreciated, extremities well-perfused, no LE edema Resp: CTABL, no wheezes/rales/rhonchi appreciated, no increased work of breathing MSK: no gross deformities appreciated Skin: warm, dry, no rash appreciated Neuro: alert, oriented, no focal neurologic deficit appreciated Results & Data Results & Data Vital Signs (Past 12 Hours) Vital Signs Temp Pulse Pulse Resp BP Pulse Ox O2 Del Method 03/10/23 07:35 93 H 03/10/23 06:43 37.5 C 103 H 24 93 Room Air 03/10/23 05:45 38.6 C H 116 H 22 168/84 H 93 Room Air 03/10/23 03:44 90 03/10/23 02:00 97 H 24 155/74 H 93 Room Air 03/09/23 22:32 37.0 C 98 H 24 176/87 H 94 Room Air Resident Activity Tracking Resident Involvement: Resident Care Provided Care Provided: Adult Hospital Medicine (3) Fall Encounter type: initial encounter Qualified Code(s): W19.XXXA - Unspecified fall, initial encounter
[2023-03-10 07:53] LABS: Estimated Average Glucose 157 mg/dl; Hemoglobin A1C 7.1 % (4.5-5.6)
[2023-03-10] MEDS: VENLAFAXINE HCL XR 75 MG CAPXR PO SCH ×2 (09:19→22:11)
[2023-03-10] MEDS: POTASSIUM CHLORIDE 10 MEQ TABCR PO SCH (09:19)
[2023-03-10] MEDS: METOPROLOL SUCC 50MG EXT REL TAB PO SCH (09:19)
[2023-03-10] MEDS: PANTOprazole 40 MG TAB PO SCH (09:20)
[2023-03-10] MEDS: lisinopril 20 MG TAB PO SCH (09:20)
[2023-03-10] MEDS: ALPRAZolam 0.25 MG TABLET PO SCH ×2 (09:20→21:28)
[2023-03-10] MEDS: INSULIN ASPART PER UNIT CHARGE SC SCH ×4 (10:16→21:27)
[2023-03-10] MEDS ORDERED: PIPERACILLIN/TAZOBACTAM 4.5 GM in DEXTROSE 5% MINI-B 100 ML IV SCH (12:00)
[2023-03-10] MEDS: ENOXAPARIN INJ 40 MG/0.4 ML SYR SQ SCH (15:55)
[2023-03-10] MEDS ORDERED: LANTUS PER UNIT CHARGE SQ SCH ×2 (16:30→18:00)
--- NOTE | 2023-03-10 18:56 | Billing Data ---
Date of Service March 10, 2023 Coding Level of Care Code 43523 SUB INP/OBS CARE MIN
[2023-03-11] MEDS: ACETAMINOPHEN 325 MG TAB PO PRN ×2 (00:43→20:39)
--- NOTE | 2023-03-11 07:17 | Hospitalist Progress Note ---
Date of Service March 11, 2023 Assessment & Plan (1) Weakness: Plan: Weakness -Differential infectious vs polypharmacy vs deconditioning -Patient has been experiencing progressive, generalized weakness since her right rotator cuff repair in December, but family states she has had an overall decline over past year -Has had 2 falls in the past 48 hours because of the weakness - Plan to treat for anaplasmosis and try to wean alprazolam -CT head and chest xray WNL, no focal neuro defects on exam -Fall and aspiration precautions -PT/OT consults Anaplasmosis - CRP 9->19 - given transaminitis and thrombocytopenia concern for anaplasmosis - will add doxycycline - blood cultures pending and initial tick borne panel negative Anxiety -Continue Venlafaxine -Will decrease TID xanax from 0.5mg to 0.25mg BID with goal of weaning off as outpatient - low threshold to increase to TID if signs of withdrawal Lightheadedness -Sounds more consistent with possible orthostasis as it occurs when she stands -Denies other neuro symptoms -Will hold amlodipine but continue lisinopril and metoprolol for now -Monitor on tele -repeat echo with EF= 55-60%, moderate Sinus Tachycardia -Sinus tachycardia on ECG -Likely due to dehydration and significant anxiety -Denies chest pain, heart palpitations, SOB -F/u blood cultures -Continue to monitor on tele Elevated Troponin -Initial high sen trop at 16, repeat 17 -Patient denies chest pain, MORRIS, SOB -No acute ST segment or T-wave changes -Likely due demand from recent falls HTN -Stable -Continue metoprolol, lisinopril, amlodipine - would consider decreasing if BP is low DM2 -Hold metformin -Monitor BSG ACHS, goal is 110-140 -Will start conservative management due to poor oral intake -CF of 50 ACHS and 5 units lantus BID -HH/DMII diet -A1c= 7.1 -Pharmacy glycemic consult Renal Cyst - noted on CT; f/u with US (2) Fever of unknown origin: (3) Fall: (4) Lightheadedness: (5) Elevated LFTs: (6) Tachycardia: (7) Elevated troponin: (8) Hypomagnesemia: (9) Hypertension: (10) Sleep apnea: Plan: -HS CPAP ordered (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 no appetite. updated to the best of my ability and to pts satisfaction. dr james later revisited to update . Vitals noted, in general she is awake and alert pleasant but fatigued no distress. HEENT normocephalic atraumatic mucous membranes moist. Breathing unlabored no accessory muscle use good effort. Skin shows no rashes no pallor or icterus. Neuro without focal deficits. Weakness/failure to thriveprobably multifactorial. Agree with family that polypharmacy likely plays a rolereduced alprazolam,we may need to stabilize at 0.25 2 times daily for a while and then reduce from there, at this point she appears okay. I also wondered about her antihypertensives as part of the polypharmacy milieubut given her blood pressures right now, it does not really appear that she is on too much medicationwe will follow this closely, but does not appear to be a culprit at this time based on her vitals and symptoms. Deconditioning almost certainly plays a role as wellPT/OT eval and treat, anticipate need for rehab. febrile illness appearing most consistent with anaplasmosis given her leukopenia, thrombocytopenia, and transaminitis (coupled with the fact that we [place] highly endemic area)initiated doxycycline. DVT prophylaxis with Lovenox. Otherwise as above. Subjective Pt seen at bedside this morning. Notes that she does not have an appetite and has not been eating much. Review of Systems Review of Systems: As per above Physical Exam Physical Exam: Constitutional: well-appearing, no acute distress HEENT: NCAT, no conjunctival injection CV:extremities well-perfused Resp: no increased work of breathing MSK: no gross deformities appreciated Skin: warm, dry, no rash appreciated Neuro: alert, oriented, no focal neurologic deficit appreciated Results & Data Results & Data Vital Signs (Past 12 Hours) Vital Signs Temp Pulse Pulse Resp BP Pulse Ox O2 Del Method 03/11/23 07:15 100 H 03/11/23 03:43 36.9 C 64 18 119/65 93 Room Air 03/10/23 23:23 38 C H 114 H 18 160/83 H 93 Room Air 03/10/23 21:59 112 H 03/10/23 20:00 36.7 C 101 H 18 152/71 H 94 Room Air (3) Fall Encounter type: initial encounter Qualified Code(s): W19.XXXA - Unspecified fall, initial encounter
[2023-03-11 08:23] LABS: Albumin Level 3.5 gm/dl (3.4-5.0); Bilirubin,Total 0.5 mg/dl (0.2-1.0); Calcium 8.7 mg/dl (8.6-10.3); Magnesium 1.9 mg/dl (1.7-2.4); Potassium 3.7 mmol/L (3.5-5.1)
[2023-03-11 08:29] LABS: BUN Creatinine Ratio 17.3 (10-20); C Reactive Protein 19.42 mg/dl (0-0.5); Creatinine Clr Calc Pharmacy 56.2 ml/min; Est GFR (African American) 87.9 ml/min; Est GFR (Non-African American) 75.8 ml/min; Globulin 3.4 gm/dl (2.5-4.0); Total Protein 6.9 gm/dl (6.0-8.3)
[2023-03-11 08:39] LABS: Hematocrit (blood only) 38.4 % (37.0-47.0); Mean Corpuscular Hemoglobin 31.4 pg (25.0-34.0); Mean Corpuscular Hgb Conc 33.9 g/dL (32.0-36.0); Mean Corpuscular Volume 92.8 fL (80.0-100.0); Mean Platelet Volume 11.3 fL (9.4-12.4); Platelet Count 93 K/uL (130-400); RDW Coefficient of Variation 13.2 % (11.5-14.5); RDW Standard Deviation 44.6 fL (36.4-46.3); Red Blood Count 4.14 M/uL (4.20-5.40); White Blood Count 4.62 K/ul (4.8-10.8)
[2023-03-11 09:11] LABS: ALC (manual) 1.89 K/uL (1.2-3.4); ANC (manual) 2.59 K/uL (1.4-6.5); Lymphocytes # (manual) 0.55 K/uL (1.2-3.4); Lymphocytes % (manual) 12 %; Monocytes # (manual) 0.14 K/uL (0.11-0.59); Monocytes % (manual) 3 %; Neutrophils # (manual) 2.59 K/uL (1.40-6.50); Neutrophils % (manual) 56 %; Reactive Lymphocytes # (manual) 1.34 K/uL; Reactive Lymphocytes % (manual) 29 %
--- NOTE | 2023-03-11 09:24 | Ultrasound Report ---
ULTRASOUND KIDNEYS AND BLADDER CLINICAL HISTORY: Renal cyst. COMPARISON STUDY: Abdominal CT dated 03/09/2023 TECHNIQUE: Real-time, grayscale, and color flow sonography of the kidneys and bladder is performed. I mages are reviewed in the transverse and longitudinal planes. FINDINGS: Kidneys: The kidneys are normal in size and echotexture. The right kidney measures 9.3 x 5.3 x 5.3 cm and the left kidney measures 9.6 x 5.3 x 5.3 cm. There is no hydronephrosis. No shadowing renal adrian culi are identified. A 2.4 cm cyst containing a thin septation is seen in the interpolar left kidney. This corresponds to the hyperdense cyst seen by CT. Additional subcentimeter left renal cyst is note d. There is no sonographic evidence of contour deforming renal mass lesion. Trace perinephric fluid i s seen bilaterally. Bladder: The bladder is largely decompressed and grossly normal in appearance. Bilateral ureteral jet s were seen. Upper abdomen: Survey images of the liver show evidence of steatosis. IMPRESSION: 1. The kidneys are normal in size and without hydronephrosis. 2. The bladder is normal as imaged. 3. There is a 2.4 cm minimally complex left renal cyst. This corresponds to the complex/hyperdense cy st seen by CT. ACT 112: Negative or not required by law. Electronically signed by: Carlos A Rockwell M.D. 03/11/2023 9:23 AM
[2023-03-11] MEDS: VENLAFAXINE HCL XR 75 MG CAPXR PO SCH ×3 (09:40→20:38)
[2023-03-11] MEDS: INSULIN ASPART PER UNIT CHARGE SC SCH ×4 (09:43→20:37)
[2023-03-11] MEDS: ALPRAZolam 0.25 MG TABLET PO SCH ×2 (09:43→20:37)
[2023-03-11] MEDS: METOPROLOL SUCC 50MG EXT REL TAB PO SCH (11:59)
[2023-03-11] MEDS: PANTOprazole 40 MG TAB PO SCH (11:59)
[2023-03-11] MEDS: POTASSIUM CHLORIDE 10 MEQ TABCR PO SCH (12:00)
[2023-03-11] MEDS: lisinopril 20 MG TAB PO SCH (12:00)
[2023-03-11] MEDS: DOXYCYCLINE HYCLATE 100 MG in DEXTROSE 5% MINI-B 100 ML IV SCH ×2 (12:03→23:35)
--- NOTE | 2023-03-11 14:35 | Pharmacy Report ---
Pharmacy Glycemic Short Note 2 - Date of Service March 11, 2023 - Glycemic Short BSG Results (Last 24 hours): 03/10/23 03/10/23 03/11/23 17:20 20:28 01:13 Glucose POC Glucose 138 H 165 H 143 H 03/11/23 03/11/23 03/11/23 06:44 08:13 12:23 Glucose 144 H POC Glucose 144 H 183 H OUTPATIENT ANTIDIABETIC REGIMEN: * Novolin N 20-22 units SC BID * Novolog SC SSI * Metformin 500 mg PO BIDM * HbA1C = 7.1% (03/10/23) ASSESSMENT: 03/11/23 * BSGs yesterday were [phone] mg/dL. Patient received 28 units of insulin (15 units of basal and 13 units of bolus). * Today's BSGs are 144-183 mg/dL. * Will fix Lantus to 17 units @ 1800. Slightly tighten CR since BSG rising at dinnertime. BACKGROUND * 77 yo F admitted on 03/09/23 secondary to generalized weakness and ambulatory dysfunction. Pharmacy has been consulted to assist with inpatient glycemic management. Patient is a Type 2 diabetic as an outpatient. Please refer to outpatient regimen and most recent HbA1c above. * BSG this AM was 195 mg/dL. Lunchtime BSG was 177 mg/dL. Last doses of insulin/metformin was last night. * Insulin will be based on previous admission data. Basal with dinner tonight. Reassess tomorrow. Novolog per weight/stress of 3 which is similar to previous admission. PLAN FOR INPATIENT GLYCEMIC CONTROL: * Hold outpatient oral diabetes medications * Basal insulin * Lantus 17 units SC w/ dinner * Bolus insulin * NovoLog per scale ACHS or Q6hrs while NPO * Goal Range: Low 110 mg/dL - High 140 mg/dL * Correction Factor: 20 mg/dL/unit * Nutritional / Prandial insulin per carb ratio of 1 unit per 6 grams CHO consumed
[2023-03-11] MEDS: ENOXAPARIN INJ 40 MG/0.4 ML SYR SQ SCH (15:46)
--- NOTE | 2023-03-11 17:46 | Billing Data ---
Date of Service March 11, 2023 Coding Level of Care Code 48692 SUB INP/OBS CARE MIN
[2023-03-11] MEDS ORDERED: LANTUS PER UNIT CHARGE SQ SCH (18:00)
[2023-03-11 23:00] VITALS: RESP 18
[2023-03-12] MEDS: ACETAMINOPHEN 325 MG TAB PO PRN ×2 (02:33→12:46)
--- NOTE | 2023-03-12 06:07 | Electrocardiogram Report ---
Test Reason : Blood Pressure : / mmHG Vent. Rate : 120 BPM Atrial Rate : 120 BPM P-R Int : 168 ms QRS Dur : 108 ms QT Int : 304 ms P-R-T Axes : 069 056 045 degrees QTc Int : 429 ms Sinus tachycardia Incomplete right bundle branch block Nonspecific ST abnormality Abnormal ECG When compared with ECG of 13-FEB-2023 10:47, No significant change was found Confirmed by Asif Harris [id number] on 03/12/2023 6:07:30 AM Referred By: REFERRED SELF Confirmed By:Asif Harris
--- NOTE | 2023-03-12 07:04 | Hospitalist Progress Note ---
Date of Service March 12, 2023 Assessment & Plan (1) Weakness: Plan: Weakness -Differential infectious vs polypharmacy vs deconditioning -Patient has been experiencing progressive, generalized weakness since her right rotator cuff repair in December, but family states she has had an overall decline over past year -Has had 2 falls in the past 48 hours because of the weakness - Plan to treat for anaplasmosis and try to wean alprazolam -CT head and chest xray WNL, no focal neuro defects on exam -Fall and aspiration precautions -PT/OT consults Anaplasmosis - CRP 9->19 - given transaminitis and thrombocytopenia concern for anaplasmosis - will add doxycycline - blood cultures pending and initial tick borne panel negative Anxiety -Continue Venlafaxine -Will decrease TID xanax from 0.5mg to 0.25mg BID with goal of weaning off as outpatient - low threshold to increase to TID if signs of withdrawal Lightheadedness -Sounds more consistent with possible orthostasis as it occurs when she stands -Denies other neuro symptoms -Will hold amlodipine but continue lisinopril and metoprolol for now -Monitor on tele -repeat echo with EF= 55-60%, moderate Sinus Tachycardia -Sinus tachycardia on ECG -Likely due to dehydration and significant anxiety -Denies chest pain, heart palpitations, SOB -F/u blood cultures -Continue to monitor on tele Elevated Troponin -Initial high sen trop at 16, repeat 17 -Patient denies chest pain, MORRIS, SOB -No acute ST segment or T-wave changes -Likely due demand from recent falls HTN -Stable -Continue metoprolol, lisinopril, amlodipine - would consider decreasing if BP is low DM2 -Hold metformin -Monitor BSG ACHS, goal is 110-140 -Will start conservative management due to poor oral intake -CF of 50 ACHS and 5 units lantus BID -HH/DMII diet -A1c= 7.1 -Pharmacy glycemic consult Renal Cyst - noted on CT; f/u with US (2) Fever of unknown origin: (3) Fall: (4) Lightheadedness: (5) Elevated LFTs: (6) Tachycardia: (7) Elevated troponin: (8) Hypomagnesemia: (9) Hypertension: (10) Sleep apnea: Plan: -HS CPAP ordered (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, insulin dependent: (12) Anxiety and depression: (13) Renal cyst: Admission and Anticipated Discharge Date Admission Date: March 09, 2023 Review of Systems Review of Systems: As per above Physical Exam Physical Exam: Constitutional: well-appearing, no acute distress HEENT: NCAT, no conjunctival injection CV:extremities well-perfused Resp: no increased work of breathing MSK: no gross deformities appreciated Skin: warm, dry, no rash appreciated Neuro: alert, oriented, no focal neurologic deficit appreciated Results & Data Results & Data Vital Signs (Past 12 Hours) Vital Signs Temp Pulse Pulse Resp BP Pulse Ox O2 Del Method 03/12/23 02:00 36.3 C L 67 18 117/68 95 Room Air 03/11/23 22:57 37.1 C 83 18 137/82 96 Room Air 03/11/23 22:00 91 H (3) Fall Encounter type: initial encounter Qualified Code(s): W19.XXXA - Unspecified fall, initial encounter
[2023-03-12 07:30] LABS: Albumin Globulin Ratio 0.9 (0.9-2); Albumin Level 3.1 gm/dl (3.4-5.0); Bilirubin,Total 0.4 mg/dl (0.2-1.0); C Reactive Protein 14.7 mg/dl (0-0.5); Calcium 8.7 mg/dl (8.6-10.3); Creatinine Clr Calc Pharmacy 58.7 ml/min; Est GFR (African American) 92.3 ml/min; Est GFR (Non-African American) 79.7 ml/min; Globulin 3.3 gm/dl (2.5-4.0); Magnesium 1.9 mg/dl (1.7-2.4); Potassium 3.4 mmol/L (3.5-5.1); Total Protein 6.4 gm/dl (6.0-8.3)
[2023-03-12 07:36] LABS: Hematocrit (blood only) 35.4 % (37.0-47.0); Hemoglobin 11.9 g/dl (12.0-16.0); Mean Corpuscular Hemoglobin 30.7 pg (25.0-34.0); Mean Corpuscular Hgb Conc 33.6 g/dL (32.0-36.0); Mean Corpuscular Volume 91.5 fL (80.0-100.0); Mean Platelet Volume 11.7 fL (9.4-12.4); Platelet Count 83 K/uL (130-400); RDW Coefficient of Variation 12.9 % (11.5-14.5); RDW Standard Deviation 43.4 fL (36.4-46.3); Red Blood Count 3.87 M/uL (4.20-5.40); White Blood Count 4.06 K/ul (4.8-10.8)
[2023-03-12] MEDS ORDERED: amLODIPine BESYLATE 5 MG TAB PO SCH (09:00)
[2023-03-12] MEDS ORDERED: ROSUVASTATIN CALCIUM 10 MG TAB PO SCH (09:00)
[2023-03-12] MEDS: VENLAFAXINE HCL XR 75 MG CAPXR PO SCH (09:24)
[2023-03-12] MEDS: PANTOprazole 40 MG TAB PO SCH (09:25)
[2023-03-12] MEDS: METOPROLOL SUCC 50MG EXT REL TAB PO SCH (09:25)
[2023-03-12] MEDS: lisinopril 20 MG TAB PO SCH (09:25)
[2023-03-12] MEDS: INSULIN ASPART PER UNIT CHARGE SC SCH (09:28)
[2023-03-12] MEDS: ALPRAZolam 0.25 MG TABLET PO SCH (09:29)
[2023-03-12] MEDS: POTASSIUM CHLORIDE 10 MEQ TABCR PO SCH (09:29)
--- NOTE | 2023-03-12 09:39 | Discharge Summary ---
Date of Service March 12, 2023 Admission HPI Per Admitting Provider Dorita is a 77 year old female with a PMH significant for anxiety/depression, DMII with peripheral neuropathy, hyperlipidemia, HTN, JONATHON, moderate aortic stenosis, and OA who presented to the [facility] ED on 03/09 with her for generalized weakness, ambulatory dysfunction, dizziness, and recent fall. She was noted to be tachycardic with HR of 120 but was otherwise stable. Labs were significant for lymphopenia of 0.69, sodium of 133, mag of 1.6, AST of 51, ALT of 54, and initial high sen trop of 16.5. CT head wo con was read as "No acute intracranial abnormality. Atrophy and microvascular ischemic changes. ". Chest xray was read as "No significant change compared to the prior study. No acute process.". ECG showed sinus tachycardiac without acute ST segment or T-wave changes compared to previous. We were asked to admit the patient for ongoing weakness and possible rehab/snf placement. At the time of the exam the patient was sitting in bed in no acute distress with her sitting bedside, history was obtained from both. They state that since the patient's right rotator cuff repair in December she has had a continued clinical decline. They state that she did go to a SNF for rehab after her shoulder surgery but she did not feel as though it helped her weakness. Over the past few weeks she has had poor oral intake, poor sleep, and has had 2 falls out of bed in the past 48 hours. The first fall occurred when she was rolling in bed and didn't realize how close to the edge of the bed she was. She rolled out of bed, landed on her left side, and was stuck between the bed and bedside table. Her helped her up once she woke him by yelling, they are unsure how long she was on the ground for. She was evaluated in the [facility] ED after the fall where they did a CT head and labs. They gave her IV fluids and discharged her home. This am she tried to get out of bed herself to go to the bathroom around 0500. Her legs were too weak when standing and she fell to the ground. She denies hitting her head or losing consciousness. She confirms that her weakness is generalized and symmetrical. She does note lightheadedness when standing over the past 2-3 months. She denies the sensation that the room is spinning, changes in vision, hearing, taste, smell, paresthesias, unilateral weakness[place] not noticed any insect bites that they know of. She still has significant pain and weakness in her right shoulder since the rotator cuff repair. She denies fever, chest pain, SOB, cough, nausea, vomiting, abd pain, dysuria, hematuria, melena, diarrhea, bloody BM's, and increased LE swelling. She currently has mild right buttocks/hip pain and low back pain since her falls. They confirm that they want her to go to inpatient rehab on discharge before trying to go back home. She is a DNR/DNI and her would be her primary decision maker if she can't make decisions herself. Please refer to Dr. 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, Polypharmacy Discharge Exam Constitutional: well-appearing, no acute distress HEENT: NCAT, no conjunctival injection CV: regular rhythm, no murmur appreciated, extremities well-perfused, no LE edema Resp: CTABL, no wheezes/rales/rhonchi appreciated, no increased work of breathing MSK: no gross deformities appreciated Skin: warm, dry, no rash appreciated Neuro: alert, oriented, no focal neurologic deficit appreciated Discharge Data Allergies Allergy/AdvReac Type Severity Reaction Status Date / Time adhesive tape Allergy Redness of Verified 02/13/23 10:29 Skin No Known Drug Allergies Allergy Verified 02/13/23 10:29 Consultations 03/09/23 10:36 ED Decision to Admit Stat Ordered Studies 03/09/23 07:57 CT head/brain wo con Stat 03/09/23 10:22 CT abd pelvis wo con Stat CT lumbar spine wo con Stat 03/11/23 US renal/blad retro comp Routine Laboratory Results WBC 4.06 K/ul (4.8-10.8) L 03/12/23 06:03 RBC 3.87 M/uL (4.20-5.40) L 03/12/23 06:03 Hgb 11.9 g/dl (12.0-16.0) L 03/12/23 06:03 Hct 35.4 % (37.0-47.0) L 03/12/23 06:03 MCV 91.5 fL (80.0-100.0) 03/12/23 06:03 MCH 30.7 pg (25.0-34.0) 03/12/23 06:03 MCHC 33.6 g/dL (32.0-36.0) 03/12/23 06:03 RDW Std Deviation 43.4 fL (36.4-46.3) 03/12/23 06:03 RDW Coeff of Lori 12.9 % (11.5-14.5) 03/12/23 06:03 Plt Count 83 K/uL (130-400) L 03/12/23 06:03 MPV 11.7 fL (9.4-12.4) 03/12/23 06:03 Immature Gran % (Auto) 0.4 % 03/10/23 05:37 Neut % (Auto) 74.9 % 03/10/23 05:37 Lymph % (Auto) 20.2 % 03/10/23 05:37 Bonner % (Auto) 4.3 % 03/10/23 05:37 Eos % (Auto) 0.0 % 03/10/23 05:37 Baso % (Auto) 0.2 % 03/10/23 05:37 Neut # (Auto) 3.83 K/uL (1.40-6.50) 03/10/23 05:37 Lymph # (Auto) 1.03 K/uL (1.20-3.40) L 03/10/23 05:37 Bonner # (Auto) 0.22 K/uL (0.11-0.59) 03/10/23 05:37 Eos # (Auto) 0.00 K/uL (0.00-0.50) 03/10/23 05:37 Baso # (Auto) 0.01 K/uL (0.00-0.20) 03/10/23 05:37 Immature Gran # (Auto) 0.02 K/uL (0.01-0.20) 03/10/23 05:37 Neutrophils % (Manual) 56 % 03/11/23 06:44 Lymphocytes % (Manual) 12 % 03/11/23 06:44 Reactive Lymphs % (Man) 29 % 03/11/23 06:44 Monocytes % (Manual) 3 % 03/11/23 06:44 Neutrophils # (Manual) 2.59 K/uL (1.40-6.50) 03/11/23 06:44 Total Absolute Neuts 2.59 K/uL (1.4-6.5) 03/11/23 06:44 Lymphocytes # (Manual) 0.55 K/uL (1.2-3.4) L 03/11/23 06:44 Reactive Lymphs # 1.34 K/uL 03/11/23 06:44 Total Abs Lymphocytes 1.89 K/uL (1.2-3.4) 03/11/23 06:44 Monocytes # (Manual) 0.14 K/uL (0.11-0.59) 03/11/23 06:44 ESR 57 mm/hr (0-30) H 03/09/23 12:13 PT 10.5 Seconds (9.0-12.0) 03/10/23 05:37 INR 1.0 (0.9-1.1) 03/10/23 05:37 Sodium 130 mmol/L (136-145) L 03/12/23 06:03 Potassium 3.4 mmol/L (3.5-5.1) L 03/12/23 06:03 Chloride 93 mmol/L (98-107) L 03/12/23 06:03 Carbon Dioxide 29 mmol/L (21-32) 03/12/23 06:03 Anion Gap 8 (3-11) 03/12/23 06:03 BUN 18 mg/dl (6-23) 03/12/23 06:03 Creatinine 0.72 mg/dl (0.6-1.2) 03/12/23 06:03 Est Cr Clr Drug Dosing 58.7 ml/min 03/12/23 06:03 Est GFR ( Amer) 92.3 ml/min 03/12/23 06:03 Est GFR (Non-Af Amer) 79.7 ml/min 03/12/23 06:03 BUN/Creatinine Ratio 25.0 (10-20) H 03/12/23 06:03 Glucose 126 mg/dl (70-99(Fasting)) H 03/12/23 06:03 POC Glucose 143 mg/dl (70-99) H 03/12/23 08:21 Estimat Average Glucose 157 mg/dl 03/10/23 05:37 Hemoglobin A1c 7.1 % (4.5-5.6) H 03/10/23 05:37 Lactate 0.8 mmol/L (0.4-2.0) 03/10/23 06:49 Calcium 8.7 mg/dl (8.6-10.3) 03/12/23 06:03 Phosphorus 2.7 mg/dl (2.5-4.9) 03/09/23 12:13 Magnesium 1.9 mg/dl (1.7-2.4) 03/12/23 06:03 Iron 14 mcg/dl (35-150) L 03/09/23 12:13 TIBC 354 mcg/dl (250-450) 03/09/23 12:13 Unsaturated IBC 340 mcg/dl (155-355) 03/09/23 12:13 Transferrin % Sat 4 % (15-50) L 03/09/23 12:13 Ferritin 246.7 ng/ml (8-388) 03/09/23 12:13 Ferritin Cancelled 03/09/23 12:13 Total Bilirubin 0.4 mg/dl (0.2-1.0) 03/12/23 06:03 AST 39 U/L (13-39) 03/12/23 06:03 ALT 39 U/L (7-52) 03/12/23 06:03 Alkaline Phosphatase 74 U/L (34-104) 03/12/23 06:03 Total Creatine Kinase 80 U/L (26-192) 03/09/23 12:13 Troponin I High Sens 17.6 pg/ml (0-14) H 03/09/23 12:13 C-Reactive Protein 14.70 mg/dl (0-0.5) H 03/12/23 06:03 Total Protein 6.4 gm/dl (6.0-8.3) 03/12/23 06:03 Albumin 3.1 gm/dl (3.4-5.0) L 03/12/23 06:03 Globulin 3.3 gm/dl (2.5-4.0) 03/12/23 06:03 Albumin/Globulin Ratio 0.9 (0.9-2) 03/12/23 06:03 Vitamin B12 631 pg/ml (180-914) 03/09/23 12:13 Folate > 22.30 ng/ml (>5.38) 03/09/23 12:13 Procalcitonin 0.28 ng/ml (0-0.5) 03/09/23 08:44 TSH 0.468 uIu/ml (0.300-4.500) 03/09/23 08:44 Urine Color Yellow 03/09/23 08:54 Urine Appearance Clear (Clear) 03/09/23 08:54 Urine pH 5.5 (4.5-7.5) 03/09/23 08:54 Ur Specific [place] 1.016 (1.000-1.030) 03/09/23 08:54 Urine Protein Negative (Negative) 03/09/23 08:54 Urine Glucose (UA) Negative (Negative) 03/09/23 08:54 Urine Ketones Trace (Negative) H 03/09/23 08:54 Urine Blood Negative (Negative) 03/09/23 08:54 Urine Nitrite Negative (Negative) 03/09/23 08:54 Urine Bilirubin Negative (Negative) 03/09/23 08:54 Urine Urobilinogen Negative (Negative) 03/09/23 08:54 Ur Leukocyte Esterase Negative (Negative) 03/09/23 08:54 Adenovirus (PCR) Not Detected (NotDetected) 03/09/23 12:45 Anaplasma Smear See Comment 03/09/23 08:44 Babesia Smear See Comment 03/09/23 08:44 B. pertussis DNA (PCR) Not Detected (NotDetected) 03/09/23 12:45 B.parapertussis DNA PCR Not Detected (NotDetected) 03/09/23 12:45 Lyme Disease IgG Ab Negative (Negative) 03/09/23 08:44 Lyme Disease IgM Ab Negative (Negative) 03/09/23 08:44 C. pneumoniae DNA (PCR) Not Detected (NotDetected) 03/09/23 12:45 Coronavirus OC43 (PCR) Not Detected (NotDetected) 03/09/23 12:45 Coronavirus HKU1 (PCR) Not Detected (NotDetected) 03/09/23 12:45 Coronavirus 229E (PCR) Not Detected (NotDetected) 03/09/23 12:45 SARS-CoV-2 (PCR) Not Detected (NotDetected) 03/09/23 12:45 Coronavirus NL63 (PCR) Not Detected (NotDetected) 03/09/23 12:45 Human Metapneumovir PCR Not Detected (NotDetected) 03/09/23 12:45 Influenza Type A (PCR) Not Detected (NotDetected) 03/09/23 12:45 Influenza Type B (PCR) Not Detected (NotDetected) 03/09/23 12:45 M. pneumoniae (PCR) Not Detected (NotDetected) 03/09/23 12:45 Parainfluenza 1 (PCR) Not Detected (NotDetected) 03/09/23 12:45 Parainfluenza 2 (PCR) Not Detected (NotDetected) 03/09/23 12:45 Parainfluenza 3 (PCR) Not Detected (NotDetected) 03/09/23 12:45 Parainfluenza 4 (PCR) Not Detected (NotDetected) 03/09/23 12:45 RSV (PCR) Not Detected (NotDetected) 03/09/23 12:45 Entero/Rhino (PCR) Not Detected (NotDetected) 03/09/23 12:45 Impressions Chest X-Ray 03/09/23 07:57 XR chest 1V portable HISTORY: weakness COMPARISON: Chest 09/06/2021. FINDINGS: The cardiac silhouette remains mildly enlarged. The lungs are clear. No pleural effusions. No pneumothorax. No evidence for pulmonary edema. Mild elevation of the right hemidiaphragm, unchanged. IMPRESSION: No significant change compared to the prior study. No acute process. ACT 112: Negative or not required by law. Electronically signed by: London Rodriguez M.D. 03/09/2023 8:[address] 03/09/23 07:[address] DOSE: 625.8 mGy.cm HISTORY: Confusion. Altered mental status. weakness TECHNIQUE: Multiaxial CT images of the head were performed without the use of intravenous contrast. Automated exposure control was utilized for this study. A dose lowering technique was utilized adhering to the principles of ALARA. Comparison: Head CT 09/06/2021. Findings: The paranasal sinuses and mastoid air cells are clear. The calvarium and skull base are intact. There is no mass, hematoma, midline shift, acute infarct. White matter hypodensity is nonspecific but suggestive of microvascular ischemic change. The ventricles and sulci demonstrate mild age-related involutional changes. Impression: No acute intracranial abnormality. Atrophy and microvascular ischemic changes. ACT 112: Negative or not required by law. Electronically signed by: London Rodriguez M.D. 03/09/2023 9:25 AM Abdomen/Pelvis CT 03/09/23 10:[address] WITHOUT CONTRAST CT DOSE: 1320.27 mGy.cm HISTORY: eval for trauma-hip and back pain TECHNIQUE: Multiaxial CT images of the abdomen and pelvis were performed without contrast. A dose lowering technique was utilized adhering to the principles of ALARA. COMPARISON STUDY: None. FINDINGS: Respiratory motion artifact results in suboptimal evaluation of the lung bases. However, no focal lung consolidations identified. No acute fractures identified. Suture material noted within the lower midline abdominal wall. Degenerative changes again noted within the lower lumbar spine. Suboptimal evaluation of the solid abdominal viscera due to the lack of intravenous contrast. However, the unenhanced gallbladder, pancreas, spleen, and adrenal glands unremarkable. There is mild hepatic steatosis. No renal stones or hydronephrosis. There is a 2.8 cm hyperdense lesion within the left kidney. This is incompletely characters on this noncontrast study but may represent a hyperdense cyst. No retroperitoneal hematoma or lymphadenopathy. Mild calcified plaque within the normal caliber abdominal aorta. No pelvic lymphadenopathy or pelvic free fluid. Normal bladder. Prior hysterectomy. The appendix is surgically absent. Suboptimal evaluation for bowel pathology due to the lack of intravenous and oral contrast. However, there is no definite bowel wall thickening or obstruction. Colonic diverticulosis. No evidence for acute diverticulitis. IMPRESSION: 1. No acute traumatic process within the abdomen or pelvis. 2. No bowel wall thickening or obstruction. 3. Mild hepatic steatosis. 4. Colonic diverticulosis. No evidence for acute diverticulitis. 5. Degenerative changes within the lower lumbar spine again noted. 6. An indeterminate 2.8 cm hypodense lesion within the left kidney. This favors a hyperdense cyst. Follow-up nonemergent renal ultrasound can be used for confirmation. ACT 112: Negative or not required by law. Electronically signed by: London Rodriguez M.D. 03/09/2023 1:[address] 03/09/23 10:[address] DOSE: HISTORY: fall TECHNIQUE: Multiaxial CT images of the lumbar spine were performed and reformatted in the sagittal and coronal plane without the use of contrast. A dose lowering technique was utilized adhering to the principles of ALARA. COMPARISON: None. FINDINGS: No acute fractures within the lumbar spine. The visualized sacrum is intact. There is 4 mm of anterolisthesis of L4 on L5. This is likely due to long-standing degenerative change. Moderate to severe facet degenerative changes within the lower lumbar spine. This spaces are preserved. Paravertebral soft tissues are unremarkable. There is moderate central canal narrowing at L4-L5 due to a small broad-based posterior disc bulge and ligamentum flavum and facet hypertrophy. There is moderate central canal narrowing at L5-S1 due to a broad- based posterior disc bulge. IMPRESSION: 1. No fractures within the lumbar spine. 2. Degenerative changes as described above. ACT 112: Negative or not required by law. Electronically signed by: London Rodriguez M.D. 03/09/2023 12:55 PM Foot X-Ray 03/09/23 11:42 XR foot RT min 3V routine CLINICAL HISTORY: fall, right foot bruising/pain COMPARISON STUDY: None. FINDINGS: No fracture or dislocation within the right foot. Mild vascular calcifications are noted. No significant soft tissue swelling. [id number] degenerative changes seen throughout the right foot. No radiopaque foreign bodies. The Lisfranc joint is aligned. IMPRESSION: No acute fractures within the right foot. ACT 112: Negative or not required by law. Electronically signed by: London Rodriguez M.D. 03/09/2023 1:20 PM Renal Ultrasound 03/11/23 00:00 ULTRASOUND KIDNEYS AND BLADDER CLINICAL HISTORY: Renal cyst. COMPARISON STUDY: Abdominal CT dated 03/09/2023 TECHNIQUE: Real-time, grayscale, and color flow sonography of the kidneys and bladder is performed. Images are reviewed in the transverse and longitudinal planes. FINDINGS: Kidneys: The kidneys are normal in size and echotexture. The right kidney measures 9.3 x 5.3 x 5.3 cm and the left kidney measures 9.6 x 5.3 x 5.3 cm. There is no hydronephrosis. No shadowing renal calculi are identified. A 2.4 cm cyst containing a thin septation is seen in the interpolar left kidney. This corresponds to the hyperdense cyst seen by CT. Additional subcentimeter left renal cyst is noted. There is no sonographic evidence of contour deforming renal mass lesion. Trace perinephric fluid is seen bilaterally. Bladder: The bladder is largely decompressed and grossly normal in appearance. B ilateral ureteral jets were seen. Upper abdomen: Survey images of the liver show evidence of steatosis. IMPRESSION: 1. The kidneys are normal in size and without hydronephrosis. 2. The bladder is normal as imaged. 3. There is a 2.4 cm minimally complex left renal cyst. This corresponds to the complex/hyperdense cyst seen by CT. ACT 112: Negative or not required by law. Electronically signed by: Carlos A Rockwell M.D. 03/11/2023 9:23 AM Hospital Course (1) Weakness: Dorita is a 77 year old female with a PMH significant for anxiety/depression, DMII with peripheral neuropathy, hyperlipidemia, HTN, JONATHON, moderate aortic stenosis, and OA who presented to the [facility] ED on 03/09 with her for generalized weakness, ambulatory dysfunction, dizziness, and recent fall. We believe weakness was likely multifactorial in the setting of anaplasmosis, deconditioning and polypharmacy. 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 Next dose due for evening of 03/12 Pancytopenia in the setting of Anaplasmosis - WBC= 4.06, Hbg= 11.9, Platelets= 83 - likely secondary to anaplasmosis - would repeat CBC in 2-3 days Transaminitis - mildly elevated in the setting of anaplasmosis - repeat CMP in 2-3 days Hyponatremia - Na= 130 - likely secondary to poor oral intake in the setting of acute illness - repeat CMP in 2-3 days Anxiety -Continue Venlafaxine -We decreased xanax from 0.5mg TID to 0.25mg BID with goal of weaning off as outpatient. - She has no shown any symptoms of withdrawal while in patient, but would have a low threshold to increase her dose and begin a slower wean if she were to shown any signs of withdrawal Renal Cyst - noted incidental on CT scan, f/u US with complex cyst - should F/u with urology as an outpatient for surveillance. Referal placed. Sinus Tachycardia -Sinus tachycardia; has resolved since starting doxycycline Elevated Troponin -Initial high sen trop at 16, repeat 17 -Patient denies chest pain, MORRIS, SOB -No acute ST segment or T-wave changes -Likely due demand from recent falls HTN -Stable -Continue metoprolol, lisinopril, amlodipine - possibility that multi blood pressure medications could be a contributing factor to weakness. If blood pressure is low, would consider decreasing, but it was not been low while she has been in the hospital. DM2 -Resume home medications * Novolin N 20-22 units SC BID * Novolog SC SSI * Metformin 500 mg PO BIDM -A1c= 7.1 (2) Fever of unknown origin: (3) Fall: (4) Lightheadedness: (5) Elevated LFTs: (6) Tachycardia: (7) Elevated troponin: (8) Hypomagnesemia: (9) Hypertension: (10) Sleep apnea: -HS CPAP ordered (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, insulin dependent: (12) Anxiety and depression: (13) Renal cyst: Total Time Total Time Spent Total Time Spent (In Minutes): <30 Discharge Plan Discharge Items Patient Disposition: Transfer Correction Fac Reason For Visit: GENERALIZED WEAKNESSS,RECURRENT FALLS,HYPOMAGNESIA Discharge Diagnosis: 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, Polypharmacy Activity: Per Instructions section Non-emergency contact: Primary Care Provider Call non-emergency contact if: you have any medication questions and your symptoms worsen Follow-up/Referrals: Lilian Oh MD [Primary Care Provider] - Rupesh Nieves MD [Physician] - (F/u renal cyst ) Diet: Regular Addtl Attending Provider Instructions: Dorita is a 77 year old female with a PMH significant for anxiety/depression, DMII with peripheral neuropathy, hyperlipidemia, HTN, JONATHON, moderate aortic stenosis, and OA who presented to the [facility] ED on 03/09 with her for generalized weakness, ambulatory dysfunction, dizziness, and recent fall. We believe weakness was likely multifactorial in the setting of anaplasmosis, deconditioning and polypharmacy. 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 Next dose due for evening of 03/12 Pancytopenia in the setting of Anaplasmosis - WBC= 4.06, Hbg= 11.9, Platelets= 83 - likely secondary to anaplasmosis - would repeat CBC in 2-3 days Transaminitis - mildly elevated in the setting of anaplasmosis - repeat CMP in 2-3 days Hyponatremia - Na= 130 - likely secondary to poor oral intake in the setting of acute illness - repeat CMP in 2-3 days Anxiety -Continue Venlafaxine -We decreased xanax from 0.5mg TID to 0.25mg BID with goal of weaning off as outpatient. - She has no shown any symptoms of withdrawal while in patient, but would have a low threshold to increase her dose and begin a slower wean if she were to shown any signs of withdrawal Renal Cyst - noted incidental on CT scan, f/u US with complex cyst - should F/u with urology as an outpatient for surveillance. Referal placed. Sinus Tachycardia -Sinus tachycardia; has resolved since starting doxycycline Elevated Troponin -Initial high sen trop at 16, repeat 17 -Patient denies chest pain, MORRIS, SOB -No acute ST segment or T-wave changes -Likely due demand from recent falls HTN -Stable -Continue metoprolol, lisinopril, amlodipine - possibility that multi blood pressure medications could be a contributing factor to weakness. If blood pressure is low, would consider decreasing, but it was not been low while she has been in the hospital. DM2 -Resume home medications * Novolin N 20-22 units SC BID * Novolog SC SSI * Metformin 500 mg PO BIDM -A1c= 7.1 Pending Studies at Discharge: No Stand-Alone Forms: My [employer] Skilled Items Patient informed of condition?: Yes DNR: Yes Discharge Level of Care: Skilled Communicable Disease: No Discharge Prognosis: Improving Lines: None Urinary Catheter: No Medications and DC Order Prescriptions: New doxycycline hyclate 100 mg capsule 100 mg PO BID 12 Days Qty: 25 0RF Continued lisinopril 20 mg tablet 20 mg PO QAM Qty: 90 3RF venlafaxine 75 mg capsule,extended release 24hr See Rx Instructions PO .COMPLEX Qty: 120 5RF Rx Instructions: Take 2 caps daily am and 2 cap daily in pm orally; potassium chloride 10 mEq capsule, extended release 10 meq PO QAM Qty: 30 5RF amlodipine [Norvasc] 10 mg tablet 10 mg PO DAILY Qty: 90 3RF metformin 500 mg tablet 500 mg PO BID Qty: 60 2RF Rx Instructions: Take 500 mg twice daily by mouth. meloxicam 7.5 mg tablet 7.5 mg PO BID Qty: 30 0RF insulin aspart U-100 [Novolog FlexPen U-100 Insulin] 100 unit/mL (3 mL) insulin pen See Rx Instructions subcut DAILY PRN (Reason: Other) Rx Instructions: Inject per sliding scale PRN Humulin N NPH U-100 Insulin 100 unit/mL suspension 22 unit subcut BID Rx Instructions: Inject 20-22 units BID Saccharomyces boulardii [Daily Probiotic (S. boulardii)] 250 mg capsule 5,000 mmu cells PO DAILY sennosides [Natural Senna Laxative] 8.6 mg tablet 8.6 mg PO DAILY omega-3 fatty acids 1,000 mg capsule 1,000 mg PO DAILY Qty: 30 0RF rosuvastatin 10 mg tablet 10 mg PO DAILY Qty: 30 2RF metoprolol succinate 50 mg tablet extended release 24 hr 50 mg PO DAILY Qty: 30 11RF biotin 2,500 mcg capsule 2,500 mcg PO QPM omeprazole 40 mg capsule,delayed release(DR/EC) 40 mg PO QAM cholecalciferol (vitamin D3) 25 mcg (1,000 unit) capsule 25 mcg PO QAM Discontinued alprazolam 0.5 mg tablet 0.5 mg PO TID Qty: 90 0RF alprazolam [Xanax] 0.5 mg tablet 0.5 mg PO TID Discharge Orders: Discharge Order (Routine); Ordered 03/12/23 Ordered By: Judi De Anda/Other Patient Handouts: Managing Type 2 Diabetes Admission Data Admit Date/Time: 03/09/23 11:31 Attending Provider: Venkata Ellison Admit Provider: Adam Bauman Primary Care Provider: Lilian Oh Other Providers: Adam Bauman Other Interventions: Discharge Summary Assessment (RN) Last Done: 03/12/23 13:05 Supervising Physician Co-Signing Physician Notes I personally examined the patient and verified all vasquez points of history and exam, discussed case, and agree with decision making with Dr Reyes happy about going to [place]. feels that will be the right level of PT. Vitals noted, in general she is awake and alert pleasant but fatigued no distress. HEENT normocephalic atraumatic mucous membranes moist. Breathing unlabored no accessory muscle use good effort. Skin shows no rashes no pallor or icterus. Neuro without focal deficits. Weakness/failure to thriveprobably multifactorial. Agree with family that polypharmacy likely plays a rolereduced alprazolam,we may need to stabilize at 0.25 2 times daily for a while and then reduce from there slowly, at this point she appears okay without s/s withdrawal at that degree of immediate dose reduction. I also wondered about her antihypertensives as part of the polypharmacy milieubut given her blood pressures right now, it does not really appear that she is on too much BP medicationwe will follow this closely, but does not appear to be a culprit at this time based on her vitals and symptoms. Deconditioning almost certainly plays a role as wellPT/OT eval and treat, ongoing at SNF. 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 Resident Activity Tracking Resident Involvement: Resident Care Provided Care Provided: Adult Hospital Medicine
[2023-03-12 10:02] LABS: ALC (manual) 2.56 K/uL (1.2-3.4); ANC (manual) 1.18 K/uL (1.4-6.5); Eosinophils # (manual) 0.04 K/uL (0-0.50); Eosinophils % (manual) 1 %; Lymphocytes # (manual) 0.85 K/uL (1.2-3.4); Lymphocytes % (manual) 21 %; Monocytes # (manual) 0.28 K/uL (0.11-0.59); Monocytes % (manual) 7 %; Neutrophils # (manual) 1.18 K/uL (1.40-6.50); Neutrophils % (manual) 29 %; Reactive Lymphocytes # (manual) 1.71 K/uL; Reactive Lymphocytes % (manual) 42 %
[2023-03-12] MEDS ORDERED: POTASSIUM CHLORIDE CRTAB 20 MEQ TABCR PO STA (10:19)
[2023-03-12] MEDS: DOXYCYCLINE HYCLATE 100 MG in DEXTROSE 5% MINI-B 100 ML IV SCH (10:36)
[2023-03-12 11:28] VITALS: BP 118/73; PULSE 78; TEMP 97.5; O2SAT 96
--- NOTE | 2023-03-12 16:20 | Billing Data ---
Date of Service March 12, 2023 Coding Level of Care Code 63573 IN/OBS DISCH 30 MIN/LESS
[2023-03-13 14:08] LABS: Ehrlichia chaff DNA Bld Negative (Negative)
[2023-03-16 01:34] LABS: Babesia microti DNA Not Detected (Not Detected); Q Fever IgG, Phase I POSITIVE; Q Fever Phase I IgM Antibody NEGATIVE; Q Fever Phase II IgG Antibody POSITIVE; Q Fever Phase II IgM Antibody NEGATIVE; R. typhi IgG Ab NOT DETECTED; R. typhi IgM Ab NOT DETECTED; RMSF IgG Ab NOT DETECTED; RMSF IgM Ab NOT DETECTED
== END 2023-03-12 13:19 | DRG 868 ==
LOC: ED 06:06 → EDINP 11:31 → SUATTDRO 11:31 → 2N 03-10 13:28
DX: Y92.009 Unspecified place in unspecified non-institutional (private) residence as the place of occurrence of the external cause; I35.0 Nonrheumatic aortic (valve) stenosis; Z98.890 Other specified postprocedural states; E83.42 Hypomagnesemia; Z86.16 Personal history of COVID-19; Z79.4 Long term (current) use of insulin; F41.9 Anxiety disorder, unspecified; E86.0 Dehydration; I10 Essential (primary) hypertension; R50.9 Fever, unspecified; I24.89 Other forms of acute ischemic heart disease; Z79.84 Long term (current) use of oral hypoglycemic drugs; E87.1 Hypo-osmolality and hyponatremia; G47.30 Sleep apnea, unspecified; T50.915A Adverse effect of multiple unspecified drugs, medicaments and biological substances, initial encounter; E11.42 Type 2 diabetes mellitus with diabetic polyneuropathy; D61.818 Other pancytopenia; Z66 Do not resuscitate; F32.A Depression, unspecified; A77.49 Other ehrlichiosis; R00.0 Tachycardia, unspecified; R74.01 Elevation of levels of liver transaminase levels; N28.1 Cyst of kidney, acquired

== ENCOUNTER 2023-09-05 08:54 | Observation (INO) ==
--- NOTE | 2023-08-13 13:24 | PAT Medication Instructions ---
Medication Instructions Date of Service August 13, 2023 Home Medications Medication Instructions Recorded omega-3 fatty acids 1,000 mg 1,000 mg PO DAILY #30 caps 09/12/20 capsule metoprolol succinate 50 mg 50 mg PO DAILY #30 tabs 02/13/23 tablet,extended release 24 hr venlafaxine 75 mg capsule,extended See Rx Instructions PO .COMPLEX 03/27/23 release 24 hr #90 caps rosuvastatin 10 mg tablet 10 mg PO DAILY #30 tabs 04/02/23 blood sugar diagnostic (Contour #100 ea 05/19/23 Next Test Strips) metformin 500 mg tablet 500 mg PO BID #60 tabs 05/19/23 mirabegron 25 mg tablet,extended 25 mg PO DAILY #90 tabs 06/04/23 release 24 hr (Myrbetriq) meloxicam 7.5 mg tablet 7.5 mg PO BID #60 tabs 06/09/23 tramadol 50 mg tablet 50 mg PO Q8H PRN pain #30 tabs 06/25/23 amlodipine 10 mg tablet (Norvasc) 5 mg (1/2 x 10 mg) PO DAILY #90 07/02/23 tabs potassium chloride 10 mEq 10 meq PO QAM #30 caps 07/22/23 capsule,extended release alprazolam 0.25 mg tablet 0.25 mg PO BID #60 tabs 07/29/23 lisinopril 20 mg tablet 20 mg PO QAM #90 tabs 07/30/23 tramadol 50 mg tablet 50 mg PO Q6H PRN pain #30 tabs 07/31/23 omeprazole 40 mg capsule,delayed 40 mg PO QAM #90 caps 08/13/23 release omega-3 fatty acids 1,000 mg capsule 1,000 mg PO DAILY Saccharomyces boulardii 250 mg capsule (Daily Probiotic (S. boulardii)) 5,000 mmu cells PO DAILY sennosides 8.6 mg tablet (Natural Senna Laxative) 8.6 mg PO DAILY biotin 2,500 mcg capsule 2,500 mcg PO QPM insulin aspart U-100 100 unit/mL (3 mL) subcutaneous pen (Novolog FlexPen U-100 Insulin aspart) See Rx Instructions subcut DAILY PRN insulin NPH isoph U-100 human 100 unit/mL subcutaneous suspension (Humulin N NPH U-100 Insulin (isophane susp)) 25 unit subcut BID cholecalciferol (vitamin D3) 25 mcg (1,000 unit) capsule 25 mcg PO QAM metoprolol succinate 50 mg tablet,extended release 24 hr 50 mg PO DAILY venlafaxine 75 mg capsule,extended release 24 hr See Rx Instructions PO .COMPLEX rosuvastatin 10 mg tablet 10 mg PO DAILY ezetimibe 10 mg tablet (Zetia) 10 mg PO HS metformin 500 mg tablet 500 mg PO BID mirabegron 25 mg tablet,extended release 24 hr (Myrbetriq) 25 mg PO DAILY meloxicam 7.5 mg tablet 7.5 mg PO BID tramadol 50 mg tablet 50 mg PO Q8H PRN amlodipine 10 mg tablet (Norvasc) 5 mg (1/2 x 10 mg) PO DAILY potassium chloride 10 mEq capsule,extended release 10 meq PO QAM alprazolam 0.25 mg tablet 0.25 mg PO BID lisinopril 20 mg tablet 20 mg PO QAM tramadol 50 mg tablet 50 mg PO Q6H PRN citalopram 40 mg tablet (Celexa) 20 mg PO QAM omeprazole 40 mg capsule,delayed release 40 mg PO QAM Continue as directed metoprolol succinate 50 mg tablet,extended release 24 hr 50 mg PO DAILY venlafaxine 75 mg capsule,extended release 24 hr See Rx Instructions PO .COMPLEX rosuvastatin 10 mg tablet 10 mg PO DAILY amlodipine 10 mg tablet (Norvasc) 5 mg (1/2 x 10 mg) PO DAILY ASK your surgeon for instructions meloxicam 7.5 mg tablet 7.5 mg PO BID STOP taking 2 weeks before surgery (or as soon as possible if surgery is within 2 weeks) omega-3 fatty acids 1,000 mg capsule 1,000 mg PO DAILY biotin 2,500 mcg capsule 2,500 mcg PO QPM DO NOT take the morning of surgery Saccharomyces boulardii 250 mg capsule (Daily Probiotic (S. boulardii)) 5,000 mmu cells PO DAILY sennosides 8.6 mg tablet (Natural Senna Laxative) 8.6 mg PO DAILY insulin aspart U-100 100 unit/mL (3 mL) subcutaneous pen (Novolog FlexPen U-100 Insulin aspart) See Rx Instructions subcut DAILY PRN cholecalciferol (vitamin D3) 25 mcg (1,000 unit) capsule 25 mcg PO QAM metformin 500 mg tablet 500 mg PO BID mirabegron 25 mg tablet,extended release 24 hr (Myrbetriq) 25 mg PO DAILY potassium chloride 10 mEq capsule,extended release 10 meq PO QAM lisinopril 20 mg tablet 20 mg PO QAM Take morning of surgery With a small sip of water, OTHERWISE NOTHING TO EAT OR DRINK AFTER MIDNIGHT: tramadol 50 mg tablet 50 mg PO Q8H PRN(if needed) tramadol 50 mg tablet 50 mg PO Q6H PRN(if needed) alprazolam 0.25 mg tablet 0.25 mg PO BID citalopram 40 mg tablet (Celexa) 20 mg PO QAM omeprazole 40 mg capsule,delayed release 40 mg PO QAM Take evening before surgery insulin NPH isoph U-100 human 100 unit/mL subcutaneous suspension (Humulin N NPH U-100 Insulin (isophane susp)) 25 unit subcut BID ezetimibe 10 mg tablet (Zetia) 10 mg PO HS metformin 500 mg tablet 500 mg PO BID tramadol 50 mg tablet 50 mg PO Q8H PRN(if needed) tramadol 50 mg tablet 50 mg PO Q6H PRN(if needed) alprazolam 0.25 mg tablet 0.25 mg PO BID Insulin Dependent Diabetic Patients * Test your blood sugar the morning of surgery * If Blood Sugar is GREATER THAN 150, take HALF of your regular dose of: insulin NPH isoph U-100 human 100 unit/mL subcutaneous suspension (Humulin N NPH U-100 Insulin (isophane susp)). * If Blood Sugar is LESS THAN 150, DO NOT TAKE ANY: insulin NPH isoph U-100 human 100 unit/mL subcutaneous suspension (Humulin N NPH U-100 Insulin (isophane susp)). Other Notes If you have any questions please call us at [phone] or [phone] or [phone] or [phone]
--- NOTE | 2023-08-27 13:31 | Anesthesiology Consultation ---
Date of Service August 27, 2023 Assessment & Plan (1) Encounter for pre-operative examination: - Check BSG AM DOS - Infectious disease screening: Per assessment on 08/27/23: No known infectious disease contacts or current infectious disease symptoms. No noted recent Covid positive test result. - Outpatient joint assessment: Pt currently scheduled for inpatient pathway. If surgeon requests review for outpatient joint pathway, patient is not recommended candidate for outpatient joint program from anesthesia standpoint based upon available information. - Previous anesthesia experience: Right Shoulder Arthroscopy, Rotator Cuff Repair, Subacromial Decompression (12/30/22)- Grade view 1, Alanis#2, ETT 7.5, atraumatic + regional at [facility] - Patient concern: Patient states she has significant right shoulder pain (residual issues s/p right shoulder surgery 12/2022). Indicates concern with positioning related to this issue. Decreased right shoulder ROM per patient. - Hx aortic stenosis: Moderate aortic stenosis (ERIC 1.0-1.1cm2, MG 33.1 mmhg) per 02/2023 Echo. Patient updating DSE prior to upcoming orthopedic surgery to reassess valvular disease. Ultimate anesthesia type to be determined by anesthesiologist DOS. - Cardiology visit (08/25/23): "Hyperlipidemia.. Patient is considered high risk. High intensity statin therapy ongoing.. Moderate aortic valve stenosis.. Prior echo February 2023. EF at that time was 55 to 60%. Moderate aortic stenosis and mild mitral regurgitation. The dimensionless index was 0.28. She has no ominous symptoms. By physical exam she has no more than moderate aortic stenosis at this time. No volume overload.. Blood pressure is at target. Heart rate is slightly elevated. She will continue with amlodipine 5 mg daily, lisinopril 20 mg daily, and metoprolol succinate ER 50 mg daily.. Pre-operative cardiovascular examination, valvular heart disease.. Patient has no symptoms. Her surgery is considered intermediate risk. Her cardiac risk is moderate predominantly from valvular heart disease. We will have her undergo dobutamine stress echo to evaluate for ischemia and reassess the valve which is unlikely to have changed significantly since February. Assuming there is no ischemia, she would then be considered low risk for planned surgery and would be recommended to proceed as scheduled. We will recommend that she remain on metoprolol succ inate perioperatively." - Patient acceptable risk for surgery pending cardiology-ordered preop DSE ([facility], scheduled 08/31). Chart Review Chart Review: Patient seen in Pre Admission Testing Teaching & Discussion Pre-Anesthesia Teaching/Discussion Notes: Instructed NPO after midnight before surgery,except medications with 15 cc of water. Medication instructions provided according to the PAT guidelines. History Surgery Operation Date: 09/05/23 10:40 Proposed Procedures p Left Total Knee Arthroplasty - Spencer Geller MD Height/Weight Height: 5 ft Weight: 76.6 kg Allergies Allergy/AdvReac Type Severity Reaction Status Date / Time adhesive tape Allergy Skin Verified 08/25/23 10:38 redness No Known Drug Allergies Allergy Verified 08/25/23 10:38 Medications Home Medications Medication Instructions Recorded Confirmed Last Taken omega-3 fatty acids 1,000 mg 1,000 mg PO DAILY #30 caps 09/12/20 08/25/23 03/08/23 capsule Saccharomyces boulardii 250 mg 5,000 mmu cells PO DAILY 09/21/21 08/25/23 03/08/23 capsule (Daily Probiotic (S. boulardii)) sennosides 8.6 mg tablet (Natural 8.6 mg PO DAILY 09/21/21 08/25/23 03/08/23 Senna Laxative) biotin 2,500 mcg capsule 2,500 mcg PO QPM 03/22/22 08/25/23 03/08/23 insulin aspart U-100 100 unit/mL See Rx Instructions subcut DAILY 03/22/22 08/25/23 03/08/23 (3 mL) subcutaneous pen (Novolog PRN Other FlexPen U-100 Insulin aspart) insulin NPH isoph U-100 human 100 25 unit subcut BID 09/30/22 08/25/23 03/08/23 unit/mL subcutaneous suspension (Humulin N NPH U-100 Insulin (isophane susp)) cholecalciferol (vitamin D3) 25 25 mcg PO QAM 11/25/22 08/25/23 03/08/23 mcg (1,000 unit) capsule metoprolol succinate 50 mg 50 mg PO DAILY #30 tabs 02/13/23 08/25/23 03/08/23 tablet,extended release 24 hr venlafaxine 75 mg capsule,extended See Rx Instructions PO .COMPLEX 03/27/23 08/25/23 Unknown release 24 hr #90 caps rosuvastatin 10 mg tablet 10 mg PO DAILY #30 tabs 04/02/23 08/25/23 Unknown ezetimibe 10 mg tablet (Zetia) 10 mg PO HS 04/23/23 08/25/23 Unknown blood sugar diagnostic (Contour #100 ea 05/19/23 08/25/23 Unknown Next Test Strips) mirabegron 25 mg tablet,extended 25 mg PO DAILY #90 tabs 06/04/23 08/25/23 Unknown release 24 hr (Myrbetriq) meloxicam 7.5 mg tablet 7.5 mg PO BID #60 tabs 06/09/23 08/25/23 Unknown amlodipine 10 mg tablet (Norvasc) 5 mg (1/2 x 10 mg) PO DAILY #90 07/02/23 08/25/23 Unknown tabs potassium chloride 10 mEq 10 meq PO QAM #30 caps 07/22/23 08/25/23 Unknown capsule,extended release lisinopril 20 mg tablet 20 mg PO QAM #90 tabs 07/30/23 08/25/23 Unknown tramadol 50 mg tablet 50 mg PO Q6H PRN pain #30 tabs 07/31/23 08/25/23 Unknown citalopram 40 mg tablet (Celexa) 20 mg PO QAM 08/12/23 08/25/23 Unknown omeprazole 40 mg capsule,delayed 40 mg PO QAM #90 caps 08/13/23 08/25/23 Unknown release metformin 500 mg tablet 500 mg PO BID #60 tabs 08/20/23 08/25/23 Unknown alprazolam 0.25 mg tablet 0.25 mg PO BID #60 tabs 08/25/23 Unknown Wheeled Walker #1 ea 08/26/23 Unknown Past Medical History Medical History Leaking of urine Memory deficits Sensory polyneuropathy Sleep apnea No device GERD (gastroesophageal reflux disease) Hypertension History of COVID-19 01/2021 Moderate aortic valve stenosis Echo 02/2023: Moderate aortic stenosis (ERIC 1.0-1.1cm2, MG 33.1 mmhg) Follows with Dr. Pozo/[facility] cardio Anxiety and depression Diabetes mellitus type 2, insulin dependent Hyperlipidemia Exercise / Class Metabolic Activity III < 4 Walking/Shop/Light housework Past Family History Family History Sister Myocardial infarction Anxiety Depression Heart disease Hypertension Lung disease Mother Anxiety Depression Brother Anxiety Depression Heart disease Hypertension Father Diabetes Heart disease Hypertension Denies family history of Colon cancer Ovarian cancer Prostate cancer Breast cancer Past Surgical History Surgical History History of rotator cuff surgery Right Shoulder Arthroscopy, Rotator Cuff Repair, Subacromial Decompression (12/30/22): Grade view 1, Alanis#2, ETT 7.5, atraumatic + regional at [facility] History of breast biopsy Benign History of hysterectomy History of colonoscopy History of cataract surgery R/L S/P hysterectomy S/P hernia repair Past Anesthesia History No Hx of Anesthesia Complications and No Family Hx of Anesthesia Complications History of PONV No Hx of PONV and No Hx of Motion Sickness Social History Smoking Status: Never smoker Do You Dip or Chew Tobacco: No Hx Alcohol Use: No Hx Substance Use: No substance use type: does not use Review of Systems Patient denies chest pain, shortness of breath, fever, chills, cough, wheezing, palpitations. Physical Exam Vital Signs BP 100/65 P 91 TEMP 97.8 SP02 95%RA RESP 18 Physical Full cervical extension range of motion. Full TMJ range of motion. TMD 3 finger breaths Mallampati Score 2 Dentition: missing sides/molars, + several crowns Lungs: clear throughout to auscultation Cardiac: regular rate and rhythm, II-III/ systolic murmur with faint carotid artery radiation Spine: normal Extremities: no LE edema Lab Results Anesthesia Preop Results Results Anesthesia Widget: WBC 7.85 K/ul (4.8-10.8) 08/27/23 Hgb 11.9 g/dl (12.0-16.0) L 08/27/23 Hct 37.3 % (37.0-47.0) 08/27/23 Plt 335 K/uL (130-400) 08/27/23 Na 138 mmol/L (136-145) 08/27/23 K 4.9 mmol/L (3.5-5.1) 08/27/23 Cl 102 mmol/L (98-107) 08/27/23 CO2 29 mmol/L (21-32) 08/27/23 BUN 32 mg/dl (6-23) H 08/27/23 Creat 1.00 mg/dl (0.6-1.2) 08/27/23 Glucose Level 112 mg/dl (70-99(Fasting)) H 08/27/23 PT 10.1 Seconds (9.0-12.0) 08/27/23 PTT 24 Seconds (21-31) 08/27/23 INR 0.9 (0.9-1.1) 08/27/23 HA1c 6.9 % (4.5-5.6) H 08/27/23 Blood Type B Positive 08/27/23 Antibody Screen NEGATIVE 08/27/23 Testing Electrocardiogram Date: 08/27/23 NSR at 92bpm. iRBBB. Possible RVH. No significant change compared to 03/09/2023 per partner marketing manager comparison. Chest X-Ray Date: 03/09/23 FINDINGS: The cardiac silhouette remains mildly enlarged. The lungs are clear. No pleural effusions. No pneumothorax. No evidence for pulmonary edema. Mild elevation of the right hemidiaphragm, unchanged. IMPRESSION: No significant change compared to the prior study. No acute process. Echocardiogram Date: 03/09/23 EF 55-60%. No RWMA. No LVH. Mild MR. Normal estimated RVSP. Moderate aortic stenosis (ERIC 1.0-1.1cm2, MG 33.1 mmhg).
--- NOTE | 2023-08-30 09:36 | History & Physical Report ---
Date of Service August 30, 2023 Assessment & Plan (1) Left knee DJD: 77-year-old female with some moderate aortic stenosis status post a relatively recent shoulder surgery with advanced bilateral knee DJD left side more symptomatic than the right. She is failed conservative treatment. She now like to proceed with left knee replacement. Plan: When taken to the operating room and do a left knee replacement for the risks Mente this procedure planed the patient include but not limited to DVT, PE, , infection, neurological injury, vascular injury, bleeding problems, persistent knee pain, need for further surgery in the future excetra. The patient understands and desires to proceed. Informed consent was obtained. She been seen by her visual supervisor and she is got an upcoming echo on Friday. Assuming that looks acceptable we will proceed. She does have some moderate aortic stenosis and some mild mitral regurgitation. As far as discharge plan she is planned to be discharged to home using the [facility] home health program. Will plan on DVT prophylaxis including thigh-high teds, SCDs, aspirin twice a day. She is diabetic and will need insulin sliding scale coverage in the hospital. (2) Right knee DJD: (3) Moderate aortic valve stenosis: (4) Hyperlipidemia: (5) History of rotator cuff surgery: History of Present Illness Chief Complaint: . Persistent left knee pain and discomfort. Primary Care Provider: Lilian Oh MD . The patient is 77-year-old female who presents for surgical treatment of her left knee. She got a long history of bilateral knee pain discomfort describes gotten worse over time. She has been through its extensive conservative treatment provided by Dr. Arias along with others including steroid shots and gel injection. Last shots really have not helped much at all. She become more debilitated by her knee pain. Is global pain. The more she is up and onto the more it hurts. She like to have it replaced. Of note, the patient did recently have a rotator cuff repair done by Dr. Mancia about 7 months ago. That has not gone so well and she is looking to have reverse shoulder replacement 3 months after her knee surgery. Patient does have history of aortic stenosis and has an echocardiogram on Friday for formal clearance. Allergies Allergy/AdvReac Type Severity Reaction Status Date / Time adhesive tape Allergy Skin Verified 08/25/23 10:38 redness No Known Drug Allergies Allergy Verified 08/25/23 10:38 Home Medications Medication Instructions Recorded Confirmed Type omega-3 fatty acids 1,000 mg 1,000 mg PO DAILY #30 caps 09/12/20 08/25/23 Rx capsule Saccharomyces boulardii 250 mg 5,000 mmu cells PO DAILY 09/21/21 08/25/23 History capsule (Daily Probiotic (S. boulardii)) sennosides 8.6 mg tablet (Natural 8.6 mg PO DAILY 09/21/21 08/25/23 History Senna Laxative) biotin 2,500 mcg capsule 2,500 mcg PO QPM 03/22/22 08/25/23 History insulin aspart U-100 100 unit/mL See Rx Instructions subcut DAILY 03/22/22 08/25/23 History (3 mL) subcutaneous pen (Novolog PRN Other FlexPen U-100 Insulin aspart) insulin NPH isoph U-100 human 100 25 unit subcut BID 09/30/22 08/25/23 History unit/mL subcutaneous suspension (Humulin N NPH U-100 Insulin (isophane susp)) cholecalciferol (vitamin D3) 25 25 mcg PO QAM 11/25/22 08/25/23 History mcg (1,000 unit) capsule metoprolol succinate 50 mg 50 mg PO DAILY #30 tabs 02/13/23 08/25/23 Rx tablet,extended release 24 hr venlafaxine 75 mg capsule,extended See Rx Instructions PO .COMPLEX 03/27/23 08/25/23 Rx release 24 hr #90 caps rosuvastatin 10 mg tablet 10 mg PO DAILY #30 tabs 04/02/23 08/25/23 Rx ezetimibe 10 mg tablet (Zetia) 10 mg PO HS 04/23/23 08/25/23 History blood sugar diagnostic (Contour #100 ea 05/19/23 08/25/23 Rx Next Test Strips) mirabegron 25 mg tablet,extended 25 mg PO DAILY #90 tabs 06/04/23 08/25/23 Rx release 24 hr (Myrbetriq) meloxicam 7.5 mg tablet 7.5 mg PO BID #60 tabs 06/09/23 08/25/23 Rx amlodipine 10 mg tablet (Norvasc) 5 mg (1/2 x 10 mg) PO DAILY #90 07/02/23 08/25/23 Rx tabs potassium chloride 10 mEq 10 meq PO QAM #30 caps 07/22/23 08/25/23 Rx capsule,extended release lisinopril 20 mg tablet 20 mg PO QAM #90 tabs 07/30/23 08/25/23 Rx tramadol 50 mg tablet 50 mg PO Q6H PRN pain #30 tabs 07/31/23 08/25/23 Rx citalopram 40 mg tablet (Celexa) 20 mg PO QAM 08/12/23 08/25/23 History omeprazole 40 mg capsule,delayed 40 mg PO QAM #90 caps 08/13/23 08/25/23 Rx release metformin 500 mg tablet 500 mg PO BID #60 tabs 08/20/23 08/25/23 Rx alprazolam 0.25 mg tablet 0.25 mg PO BID #60 tabs 08/25/23 Rx Wheeled Walker #1 ea 08/26/23 Rx Past Med/Surg History Medical History Leaking of urine Memory deficits Sensory polyneuropathy Sleep apnea No device GERD (gastroesophageal reflux disease) Hypertension History of COVID-19 01/2021 Moderate aortic valve stenosis Echo 02/2023: Moderate aortic stenosis (ERCI 1.0-1.1cm2, MG 33.1 mmhg) Follows with Dr. Pozo/[facility] [place] Anxiety and depression Diabetes mellitus type 2, insulin dependent Hyperlipidemia Surgical History History of rotator cuff surgery Right Shoulder Arthroscopy, Rotator Cuff Repair, Subacromial Decompression (12/30/22): Grade view 1, Alanis#2, ETT 7.5, atraumatic + regional at [facility] History of breast biopsy Benign History of hysterectomy History of colonoscopy History of cataract surgery R/L S/P hysterectomy S/P hernia repair Family History Sister Myocardial infarction Anxiety Depression Heart disease Hypertension Lung disease Mother Anxiety Depression Brother Anxiety Depression Heart disease Hypertension Father Diabetes Heart disease Hypertension Denies family history of Colon cancer Ovarian cancer Prostate cancer Breast cancer Social History Smoking Status: Never smoker Second Hand Exposure: No; Do You Dip or Chew Tobacco: No; Tobacco Cessation Education Requested by Patient: No Hx Alcohol Use: No Hx Substance Use: No Preferred Language: Hungarian Communication Ability: Impaired Visual Impairment: No Limitations Hearing Ability: Normal Biomathematician Required: No Beliefs That Will Affect Care: None marital status: Current Living Situation: Spouse current occupational status: retired 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 Physical Exam . Physical examination reveals a thin and relatively healthy appearing middle-aged to elderly female. Examination of the left knee reveal patient walks with a slight bit of a limp. She got valgus alignment to her knee which is increased with weightbearing. She is tender over the lateral joint line. Small knee effusion. Range of motion 5-1 25. No instability. No pain with hip motion. Constitutional WD/WN, vitals as above Neck trachea midline, no thyromegaly Respiratory normal respiratory effort, lungs clear to auscultation Cardiovascular RRR, no murmur, no edema Gastrointestinal (Abdomen) normal bowel sounds, soft, nontender, no hepatosplenomegaly Results & Data Results & Data Laboratory Results . Diagnostic Findings . X-rays of the left knee reviewed. Shows advanced left knee lateral compartment DJD. She got complete loss of the lateral joint space. She got [id number] disease. She got cystic changes of the lateral femoral condyle and osteophytes primarily laterally. She also has advanced medial compartment arthritis in her right knee. Complete loss of medial joint space. Osteophytes medially. PG Care Time/CCT Total # of Minutes Spent Total Time Spent with Patient: Total time spent is greater than 50% in coordination of care (as documented) at patient's floor/unit and/or counseling patient: Coding Level of Care Code None Diagnoses Left knee DJD M17.12 Right knee DJD M17.11 Moderate aortic valve stenosis I35.0 Mixed hyperlipidemia E78.2 Hyperlipidemia type: mixed hyperlipidemia History of rotator cuff surgery Z98.890 (4) Hyperlipidemia Hyperlipidemia type: mixed hyperlipidemia Qualified Code(s): E78.2 - Mixed hyperlipidemia
[~2023-09-05 08:54] MED LIST: BUPIVACAINE 0.5 % 5 MG/1 ML PF 10ML VIAL ONE; ROPIVACAINE 0.5% 5 MG/ML 30 ML VIAL ONE
[2023-09-05] MEDS ORDERED: PROPOFOL IV EMULSION 10 MG/ML 20 ML VIAL IV ONE (09:47)
[2023-09-05] MEDS ORDERED: PHENYLEPHRINE HCL 10 MG/ML VIAL ONE (09:47)
[2023-09-05] MEDS ORDERED: ONDANSETRON INJ 2 MG/ML 2 ML VIAL ONE (09:47)
[2023-09-05] MEDS ORDERED: MIDAZOLAM HCL 1 MG/ML 2ML VIAL ONE (09:47)
[2023-09-05] MEDS ORDERED: fentaNYL citrate PF 100 MCG/2 ML VIAL ONE (09:48)
[2023-09-05] MEDS: LR 60ML/HR IV SCH (09:57)
[2023-09-05] MEDS: CeleBREX 200 MG CAP PO SCH (09:57)
[2023-09-05] MEDS: METOCLOPRAMIDE HCL 10 MG TABLET PO SCH (09:57)
[2023-09-05] MEDS: LR 15ML/HR IV SCH (09:57)
[2023-09-05] MEDS: FAMOTIDINE 20 MG TAB PO SCH (09:57)
[2023-09-05] MEDS: ACETAMINOPHEN 500 MG TAB PO SCH ×2 (09:57→20:38)
[2023-09-05] MEDS ORDERED: ePHEDrine sulfate 50 MG/ML AMP IV PRN (10:36)
[2023-09-05] MEDS ORDERED: ATROPINE SULFATE 0.1 MG/ML 10ML SYR IV PRN (10:36)
[2023-09-05] MEDS ORDERED: fentaNYL citrate PF 100 MCG/2 ML VIAL IV PRN (10:36)
[2023-09-05] MEDS ORDERED: ONDANSETRON INJ 2 MG/ML 2 ML VIAL IV PRN ×2 (10:36→14:12)
--- NOTE | 2023-09-05 10:41 | History & Physical Bridge Note ---
Date of Service September 05, 2023 History & Physical Bridge Note I have examined the patient, reviewed the History & Physical and in the interval since the performance of the History & Physical I have noted the following changes of clinical significance: no changes noted
[2023-09-05] MEDS: ceFAZolin 2000MG 2,000 MG/15 ML SYR IV SCH (11:01)
[2023-09-05] MEDS: ROPIV 0.5% 246mg, Ketorolac 30mg, EPINEPHrine 0.5mg in NSS INFIL SCH (11:36)
[2023-09-05] MEDS: VANCOMYCIN HCL 1000MG/20ML VIAL ONE (11:41)
[2023-09-05] MEDS: TRANEXAMIC ACID 1,000 MG **IV Intra-op IV SCH (11:51)
--- NOTE | 2023-09-05 12:41 | Operative Report ---
PG Post Operative Report Pre & Post Diagnosis Operation Date: 09/05/23 10:40 Pre-Op Diagnosis: DJD Knee Left Post-Op Diagnosis: DJD Knee Left I identified the patient and participated in the time-out.: Yes Procedure Operation Date: 09/05/23 10:40 Actual Procedures p Left Total Knee Arthroplasty(Left) - Spencer Geller MD Surgeon Spencer Geller MD Third Helper Deonte Meyers PA-C Estimated Blood Loss 50 Findings Consistent with Post-Op Diagnosis Operative findings reveal advanced left knee lateral compartment DJD. She has a full-thickness cartilage loss of the lateral femoral condyle and eburnation as w ell as full-thickness cartilage loss of lateral tibial plateau. She had a valgus deformity to her knee. Moderate-sized joint effusion. Specimens Left knee sent for pathology. Anesthesia Type Spinal MAC Complications none Disposition Accompanied Patient To Recovery: No Indications The patient is a 77-year-old female with a long history of bilateral knee pain and discomfort describes gotten worse over the years. She been through extensive conservative treatments became less successful. X-rays show advanced bilateral knee DJD. The left knee was bothering more than the right. She elected proceed with left total knee arthroplasty. Description of Procedure Operative implants consist of: 1. Biomet Vanguard size 57.5 left posterior stabilized femoral component. 2. Biomet size 67 tibial tray. 3. 10 mm PS plus polyethylene insert. 4. 28 x 8 all poly patella. The patient was taken the op room, identified, placed on the operating table in the supine position. All contact areas were appropriately padded. IV antibiotics tried by anesthesia team. A spinal anesthetic and adductor canal block had been provided in the holding area. A Marcano catheter was placed in sterile fashion. Left thigh tent was then placed in the left lower extremity was then prepped and draped in usual sterile fashion. The left leg was elevated and exsanguinated with use of an Esmarch and a turn was placed at 300 mmHg. An anterior approach to the left knee was then performed to longitudinal incision centered over the patella. Sharp dissection was got through subcutaneous tissue down to the extensor mechanism. A medial parapatellar arthrotomy incision was made. Some subperiosteal dissection was carried out medially. The fat pad was resected from Neath patella tendon. Lateral patellofemoral ligament was released. Patella subluxated laterally and the knee was flexed. The osteophytes taken on distal femur. The ACL and PCL were then released from the distal femur the tibia subluxated anteriorly. The external tibial alignment jig was then placed in the interface the tibia and adjusted 12 mm medially. Proximal tibial cut was made to move out to 3 mm of bone from the medial side to the tibia sized to a size 67. Attention drawn toward the femur. The distal femur examined the sharp drill. Intramedullary canal was suction. A left 5 degree valgus cutting guide was placed. The distal femoral cut was made to take an additional 3 mm of bone off distal femur. The knee was brought into extension. I did do some pie crusting of the IT band laterally to equalize extension gap. Great care was taken to protect the peroneal nerve at all times. The knee was then flexed. The knee was then sized to a size 57.5. The AP cutting block was pinned parallel to the epicondylar axis which was 5 degrees of external rotation. The anterior cut, anterior chamfer, posterior cut, posterior chamfer cuts were made. The box cutting guide was placed in just slight lateral box cut was made. The knee was flexed. The remnants of the medial and lateral menisci were excised. The osteophytes taken off the posterior aspect the femur. I did release the popliteus tendon in order to equalize the flexion gap. A trial femoral component was placed. The tibial tray was pinned Grace external rotation and the drill and stem punch used to create defect in proximal tibia for the tibial tray. Knee was then trialed and the 10 mm insert fit most appropriately. There is still just a little bit MCL laxity so I did elect to place the PS plus insert. Attention drawn the patella. The patella is cleaned of all soft tissues. Patella thickness measured 18 mm in thickness was cut down to 12. It was sized to a size 28 patella. The lug holes were drilled for the 28 patella. The lateral osteophyte was removed. Patella button was placed. Knee was taken through range of motion patella tracked nicely with no thumbs test. Attention drawn to placing permanent components. All trial components were removed. Bone plug was placed in the distal femur limit blood loss. A double batch Palacos G cement was mixed. A Biomet Vanguard size 57.5 left posterior stabilized femoral component, size 67 tibial tray, a 10 mm PS plus insert, and a 28 x 8 all poly patella then cemented in place. The knee was brought out into full extension till cement hardened. Final cement check was then performed. Pericapsular tissues were injected with total of 100 cc of Ortho mix. The patient did receive 1 g tranexamic acid. The tourniquet was then let down for final tourniquet time of 52 minutes. Hemostasis assured use electrocautery. Extensor Meclomen closed with combination 1 PDS suture #1 Vicryl suture in a [id number] fashion. Extensor Meclomen checked found to be intact in the subcutaneous tissues then closed with 2 Dexon suture in a buried interrupted fashion skin was closed skin nemesio. Leg was then cleaned and dried and a sterile dressing with Xeroform, 4 fours, sterile ABD pad, sterile cast padding, Vito bandage were applied. Patient then transferred to the recovery room in stable condition. Patient tolerated procedure well and there were no complications. Deonte Meyers, my physician orthotic assistant, was present for the entire procedure. His assistance was essential and required for appropriate patient positioning, prepping and draping, surgical exposure, performing the technical details of the operation, placement the implants, closure of the wound, and placement of the sterile bandage. I attest to the content of the Intraoperative Record and any orders documented therein. Any exceptions are noted below.
--- NOTE | 2023-09-05 13:20 | XRay Report ---
XR knee LT 1 or 2V routine CLINICAL HISTORY: Surgical Post Op TECHNIQUE: 2 views of the left knee were obtained. Comparison: Comparison is made to knee radiographs 06/12/2023 FINDINGS: Patient is status post total knee arthroplasty with expected postsurgical changes including soft tiss ue swelling and subcutaneous emphysema. No periarticular lucency or hardware fracture is seen. IMPRESSION: Expected postoperative appearance status post placement of total knee arthroplasty. ACT 112: Negative or not required by law. Electronically signed by: Brett Feliciano M.D. 09/05/2023 1:18 PM
--- NOTE | 2023-09-05 13:43 | Anesthesiology Progress Note ---
Date of Service September 05, 2023 Anesthesia Post Procedure Vital Signs Vital Signs: Temp Pulse Pulse Resp BP Pulse Ox O2 Del Method 09/05/23 13:35 36.4 C L 85 20 144/68 H 95 Nasal Cannula 09/05/23 13:25 87 20 136/68 95 Nasal Cannula 09/05/23 13:15 88 16 136/63 93 Room Air 09/05/23 13:05 87 18 144/70 H 93 Room Air 09/05/23 12:56 90 20 141/70 H 97 Oxymask 09/05/23 12:45 90 17 134/69 99 Oxymask 09/05/23 12:38 36.3 C L 98 H 13 110/67 95 Oxymask 09/05/23 09:30 36.7 C 89 20 132/71 97 Room Air O2 Flow Rate 09/05/23 13:35 2 09/05/23 13:25 2 09/05/23 13:15 09/05/23 13:05 09/05/23 12:56 4 09/05/23 12:45 9 09/05/23 12:38 9 09/05/23 09:30 Notes Mental Status: alert / awake / arousable Patient Amnestic to Procedure: Yes Nausea / Vomiting: adequately controlled Pain: adequately controlled Airway Patency, RR, SpO2: stable & adequate BP & HR: stable & adequate Hydration State: stable & adequate Neuraxial Anesthesia: was administered and sensory block is resolving Anesthetic Complications: no major complications apparent
[2023-09-05] MEDS ORDERED: bisacodyL 10 MG SUPP PR PRN (14:12)
[2023-09-05] MEDS ORDERED: GLUCOSE 40% GEL 15 GM TUBE PO PRN (14:12)
[2023-09-05] MEDS ORDERED: GLUCOSE 10 TAB/TUBE PO PRN (14:12)
[2023-09-05] MEDS ORDERED: METOCLOPRAMIDE HCL INJ 5 MG/ML 2 ML VIAL IV PRN (14:12)
[2023-09-05] MEDS ORDERED: MAGNESIUM HYDROXIDE SUSP 30 ML UDC PO PRN (14:12)
[2023-09-05] MEDS ORDERED: ALUMINUM/MAGNESIUM SUSP 30 ML UDC PO PRN (14:12)
[2023-09-05] MEDS ORDERED: DEXTROSE 50% 50 ML SYRINGE IV PRN (14:12)
[2023-09-05] MEDS ORDERED: NALOXONE HCL 0.4 MG/1 ML VIAL/CARP IV PRN (14:12)
[2023-09-05] MEDS ORDERED: CARBOHYDRATES FOR HYPOGLYCEMIA PO PRN (14:12)
[2023-09-05] MEDS ORDERED: GLUCAGON FOR INJ 1 MG VIAL SQ PRN (14:12)
[2023-09-05] MEDS ORDERED: PHARMACY GLYCEMIC MGMT CONSULT PRN (14:12)
[2023-09-05] MEDS ORDERED: HYDROmorphone INJ 0.5 MG/0.5 ML SYR IV PRN (14:12)
[2023-09-05] MEDS: ORTHO JOINT ANESTHETIC ONE (14:28)
[2023-09-05] MEDS: SODIUM CHLORIDE 0.9% 1,000 ML IV SCH (15:09)
--- NOTE | 2023-09-05 15:46 | Pharmacy Report ---
Pharmacy Glycemic Short Note 2 - Date of Service September 05, 2023 - Glycemic Short BSG Results (Last 24 hours): 09/05/23 09/05/23 09:32 12:41 POC Glucose 118 H 137 H OUTPATIENT ANTIDIABETIC REGIMEN: * Metformin 500 mg PO BID * NPH 25 units SC BID (last dose was on 09/03 @ 2200) Hba1c = 6.9% ASSESSMENT: * 77 y/o F admitted for Left TKA today. Patient has history of Type 2 diabetes controlled on oral Metformin and basal NPH insulin at home. * Will hold NPH insulin and Metformin while admitted and utilize basal insulin with Glargine and Novolog bolus for glycemic control. * Utilized data from past admissions to order basal dose of Lantus 18 units (between stress of 2 and 3) with dinner today. * Novolog parameters also based on stress between 2 and 3. * Patient did not receive steroids in OR today but Dex 10 mg IV is ordered x1 in AM tomorrow. Expect BSGs to trend up with this, so will re-assess insulin regimen tomorrow. PLAN FOR INPATIENT GLYCEMIC CONTROL: * Hold outpatient diabetes medications * Basal insulin * Lantus 18 units SQ daily with dinner. Re-assess dosing tomorrow with IV steroid ordered. * Bolus insulin * NovoLog per scale ACHS or Q6hrs while NPO * Goal Range: Low 110 mg/dL - High 140 mg/dL * Correction Factor: 25 mg/dL/unit * Nutritional / Prandial insulin per carb ratio of 1 unit per 8 grams CHO consumed
[2023-09-05] MEDS: ASCORBIC ACID 500 MG TAB PO SCH (17:08)
[2023-09-05] MEDS: LANTUS PER UNIT CHARGE SC SCH (17:08)
[2023-09-05] MEDS: INSULIN ASPART PER UNIT CHARGE SC SCH (17:08)
[2023-09-05] MEDS: ceFAZolin 1000MG 1,000 MG/7.5 ML SYR IV SCH (17:47)
[2023-09-05] MEDS: TRANEXAMIC ACID / 0.7% NACL 1,000 MG/100 ML BAG IV SCH (20:04)
[2023-09-05] MEDS: SENNA 8.6 MG TAB PO SCH (20:38)
[2023-09-05] MEDS: DOCUSATE SODIUM 100 MG CAP PO SCH (20:38)
[2023-09-05] MEDS: VENLAFAXINE HCL XR 75 MG CAPXR PO SCH (20:38)
[2023-09-05] MEDS: ALPRAZolam 0.25 MG TABLET PO SCH (20:38)
[2023-09-05] MEDS: ASPIRIN 81 MG ECTAB PO SCH (20:39)
[2023-09-05] MEDS: EZETIMIBE 10 MG TAB PO SCH (20:39)
[2023-09-05] MEDS ORDERED: SENNA 8.6 MG TAB PO SCH (21:00)
[2023-09-05] MEDS: KETOROLAC TROMETHAMINE 15 MG/ML VIAL IV SCH (22:06)
[2023-09-05] MEDS: traMADol HCL 50 MG TABLET PO PRN (23:37)
[2023-09-06 06:07] LABS: Hematocrit (blood only) 31.5 % (37.0-47.0); Hemoglobin 10.2 g/dl (12.0-16.0); Mean Corpuscular Hemoglobin 30.5 pg (25.0-34.0); Mean Corpuscular Hgb Conc 32.4 g/dL (32.0-36.0); Mean Corpuscular Volume 94.3 fL (80.0-100.0); Platelet Count 262 K/uL (130-400); RDW Coefficient of Variation 13.7 % (11.5-14.5); RDW Standard Deviation 47.2 fL (36.4-46.3); Red Blood Count 3.34 M/uL (4.20-5.40); White Blood Count 9.47 K/ul (4.8-10.8)
[2023-09-06 06:22] LABS: BUN Creatinine Ratio 25.4 (10-20); Calcium 8.5 mg/dl (8.6-10.3); Creatinine Clr Calc Pharmacy 67.1 ml/min; Est GFR (African American) 98.9 ml/min; Est GFR (Non-African American) 85.3 ml/min; Potassium 4.4 mmol/L (3.5-5.1)
[2023-09-06] MEDS: dexAMETHasone 10 MG in SYRINGE 0 ML IV SCH (07:29)
--- NOTE | 2023-09-06 07:42 | Surgery Progress Note ---
Date of Service September 06, 2023 Assessment & Plan (1) Status post left knee replacement: Plan: 77-year-old female postop day 1 from left knee replaced doing reasonably well. Pain is controlled. She is neurologically intact. Medically she appears stable. Plan: 1. DVT prophylaxis including thigh-high teds, SCDs, and aspirin twice a day. 2. PT/OT. Weight-bear as tolerated. Left total knee protocol. 3. Pain control doing okay with current pain regimen. 4. Disposition plan to discharge to home with some home health if she does okay in therapy today. Admission and Anticipated Discharge Date Admission Date: September 05, 2023 Subjective 77-year-old female postop day 1 from a left knee replacement. She is doing pretty well this morning. Pain has been reasonably well-controlled. She did get up and walk some last evening and did pretty well. No chest pain or shortness of breath. Not feeling dizzy or lightheaded. Physical Exam Physical Exam: Physical examination is a pleasant elderly female. She is lying in bed. She is looks pretty comfortable. Examination of left leg reveals dressing be clean dry and intact. She can dorsiflex and plantarflex her foot appropriately. She is neurologically intact. Respiratory: normal respiratory effort, lungs clear to auscultation Cardiovascular: RRR, no murmur, no edema Gastrointestinal (Abdomen): normal bowel sounds, soft, nontender, no hepatosplenomegaly Results & Data Vital Signs (Past 12 Hours) Vital Signs Temp Pulse Resp BP Pulse Ox O2 Del Method O2 Flow Rate 09/06/23 03:42 36.5 C 83 19 134/76 96 Nasal Cannula 1 09/06/23 00:26 36.3 C L 86 18 136/80 96 Room Air Laboratory Results Hemoglobin is 10.2. Hematocrit is 31.5. Electrolytes are stable PG Care Time/CCT Total # of Minutes Spent Total Time Spent with Patient: Total time spent is greater than 50% in coordination of care (as documented) at patient's floor/unit and/or counseling patient: Coding Level of Care Code 27528 Post Operative Follow-Up Diagnoses Status post left knee replacement Z96.652
[2023-09-06] MEDS: LANTUS PER UNIT CHARGE SC ONE (08:45)
[2023-09-06] MEDS: amLODIPine BESYLATE 5 MG TAB PO SCH (08:46)
[2023-09-06] MEDS: CHOLECALCIFEROL 25 MCG (1000 UNITS) TAB PO SCH (08:47)
[2023-09-06] MEDS: OMEGA-3 (PURIFIED FISH OIL) 1 GM CAP PO SCH (08:47)
[2023-09-06] MEDS: lisinopril 20 MG TAB PO SCH (08:48)
[2023-09-06] MEDS: PANTOprazole 40 MG TAB PO SCH (08:48)
[2023-09-06] MEDS: METOPROLOL SUCC 50MG EXT REL TAB PO SCH (08:48)
[2023-09-06] MEDS: MULTIVITAMIN TAB PO SCH (08:48)
[2023-09-06] MEDS: SACCHAROMYCES BOULARDII 250 MG CAP PO SCH (08:49)
[2023-09-06] MEDS: ROSUVASTATIN CALCIUM 10 MG TAB PO SCH (08:49)
[2023-09-06] MEDS: VIBEGRON 75 MG TAB PO SCH (08:50)
[2023-09-06] MEDS: VENLAFAXINE HCL XR 75 MG CAPXR PO SCH (08:50)
[2023-09-06] MEDS: POTASSIUM CHLORIDE 10 MEQ TABCR PO SCH (08:56)
[2023-09-06] MEDS ORDERED: SENNA 8.6 MG TAB PO SCH (09:00)
[2023-09-06] MEDS ORDERED: LANTUS PER UNIT CHARGE SC SCH (21:00)
--- NOTE | 2023-09-10 15:51 | Discharge Summary ---
Date of Service September 10, 2023 Discharge Data Procedures Performed Operation Date: 09/05/23 10:40 Actual Procedures p Left Total Knee Arthroplasty(Left) - Spencer Geller MD Hospital Course (1) Status post left knee replacement: This is a 77 year old patient admitted on 09/05/23 and underwent total knee arthroplasty. She tolerated the procedure well and there were no complications. Transferred to the PACU post op and later to the orthopedic floor for further care. She was given ancef for antibiotic prophylaxis. She was also given RAFAEL stockings, SCDs, and aspirin for DVT prophylaxis. Hemoglobin, hematocrit, and vital signs were monitored during her hospital stay and remained stable. Did not require any blood transfusions. There were no complications during her hospital stay. By post op day #1 the patient was tolerating a diabetic diet, pain was reasonably controlled with oral pain medicine, and she was participating in physical therapy. On post op day #1 the patient was discharged home and set up with home health care. She was given printed discharge instructions including prescriptions for extra strength tylenol, aspirin, cefadroxil, ketorolac, zofran, senokot, and tramadol. Continue physical therapy, weight bearing as tolerated. Continue RAFAEL stockings. Follow up approximately 2 weeks post op or sooner if there are problems or concerns. Coding Level of Care Code None Diagnoses Status post left knee replacement Z96.652
== END 2023-09-06 11:43 | disposition home health service (06) ==
LOC: ASU 08:54 → 3E 08:54
DX: G47.33 Obstructive sleep apnea (adult) (pediatric); E11.9 Type 2 diabetes mellitus without complications; M17.12 Unilateral primary osteoarthritis, left knee; Z79.4 Long term (current) use of insulin; E78.5 Hyperlipidemia, unspecified; I10 Essential (primary) hypertension; K21.9 Gastro-esophageal reflux disease without esophagitis; I35.0 Nonrheumatic aortic (valve) stenosis; Z79.84 Long term (current) use of oral hypoglycemic drugs; Z79.82 Long term (current) use of aspirin; Z79.899 Other long term (current) drug therapy

== ENCOUNTER 2023-12-08 07:36 | Observation (INO) ==
--- NOTE | 2023-10-30 12:55 | PAT Medication Instructions ---
Medication Instructions Date of Service October 30, 2023 Home Medications Medication Instructions Recorded blood sugar diagnostic (Contour #100 ea 05/19/23 Next Test Strips) potassium chloride 10 mEq 10 meq PO QAM #30 caps 07/22/23 capsule,extended release lisinopril 20 mg tablet 20 mg PO QAM #90 tabs 07/30/23 omeprazole 40 mg capsule,delayed 40 mg PO QAM #90 caps 08/13/23 release metformin 500 mg tablet 500 mg PO BID #60 tabs 08/20/23 Wheeled Walker #1 ea 08/26/23 aspirin 81 mg tablet,delayed 81 mg PO BID 45 days #90 tabs 09/03/23 release (Humphrey Low Dose Aspirin) alprazolam 0.25 mg tablet 0.25 mg PO BID #60 tabs 09/30/23 ezetimibe 10 mg tablet (Zetia) 10 mg PO HS #90 tabs 09/30/23 Medication List: Saccharomyces boulardii 250 mg capsule (Daily Probiotic (S. boulardii)) 5,000 mmu cells PO DAILY insulin aspart U-100 100 unit/mL (3 mL) subcutaneous pen (Novolog FlexPen U-100 Insulin aspart) See Rx Instructions subcut DAILY PRN Other insulin NPH isoph U-100 human 100 unit/mL subcutaneous suspension (Humulin N NPH U-100 Insulin (isophane susp)) 20 - 25 unit subcut UD cholecalciferol (vitamin D3) 25 mcg (1,000 unit) capsule 25 mcg PO QAM potassium chloride 10 mEq capsule,extended release 10 meq PO QAM lisinopril 20 mg tablet 20 mg PO QAM omeprazole 40 mg capsule,delayed release 40 mg PO QAM metformin 500 mg tablet 500 mg PO BID aspirin 81 mg tablet,delayed release (Humphrey Low Dose Aspirin) 81 mg PO BID alprazolam 0.25 mg tablet 0.25 mg PO BID ezetimibe 10 mg tablet (Zetia) 10 mg PO HS acetaminophen 500 mg tablet (Tylenol Extra Strength) 1,000 mg PO TID PRN pain amlodipine 10 mg tablet (Norvasc) 5 mg PO QAM ascorbic acid (vitamin C) 500 mg tablet (Vitamin C) 500 mg PO DAILY metoprolol succinate 50 mg tablet,extended release 24 hr 50 mg PO QAM mirabegron 25 mg tablet,extended release 24 hr (Myrbetriq) 25 mg PO QAM rosuvastatin 10 mg tablet 10 mg PO QAM venlafaxine 75 mg capsule,extended release 24 hr 75 - 150 mg PO UD MEDICATION INSTRUCTIONS: ASK your prescriber and surgeon aspirin 81 mg tablet,delayed release (Humphrey Low Dose Aspirin) 81 mg PO BID DO NOT take the morning of surgery ascorbic acid (vitamin C) 500 mg tablet (Vitamin C) 500 mg PO DAILY cholecalciferol (vitamin D3) 25 mcg (1,000 unit) capsule 25 mcg PO QAM potassium chloride 10 mEq capsule,extended release 10 meq PO QAM lisinopril 20 mg tablet 20 mg PO QAM Saccharomyces boulardii 250 mg capsule (Daily Probiotic (S. boulardii)) 5,000 mmu cells PO DAILY mirabegron 25 mg tablet,extended release 24 hr (Myrbetriq) 25 mg PO QAM metformin 500 mg tablet 500 mg PO BID insulin aspart U-100 100 unit/mL (3 mL) subcutaneous pen (Novolog FlexPen U-100 Insulin aspart) See Rx Instructions subcut DAILY PRN Other Take morning of surgery With a small sip of water, OTHERWISE NOTHING TO EAT OR DRINK AFTER MIDNIGHT: alprazolam 0.25 mg tablet 0.25 mg PO BID acetaminophen 500 mg tablet (Tylenol Extra Strength) 1,000 mg PO TID PRN pain venlafaxine 75 mg capsule,extended release 24 hr 75 - 150 mg PO UD amlodipine 10 mg tablet (Norvasc) 5 mg PO QAM omeprazole 40 mg capsule,delayed release 40 mg PO QAM metoprolol succinate 50 mg tablet,extended release 24 hr 50 mg PO QAM rosuvastatin 10 mg tablet 10 mg PO QAM Take evening before surgery alprazolam 0.25 mg tablet 0.25 mg PO BID acetaminophen 500 mg tablet (Tylenol Extra Strength) 1,000 mg PO TID PRN pain venlafaxine 75 mg capsule,extended release 24 hr 75 - 150 mg PO UD ezetimibe 10 mg tablet (Zetia) 10 mg PO HS metformin 500 mg tablet 500 mg PO BID insulin aspart U-100 100 unit/mL (3 mL) subcutaneous pen (Novolog FlexPen U-100 Insulin aspart) See Rx Instructions subcut DAILY PRN Other insulin NPH isoph U-100 human 100 unit/mL subcutaneous suspension (Humulin N NPH U-100 Insulin (isophane susp)) 20 - 25 unit subcut UD Insulin Dependent Diabetic Patients * Test your blood sugar the morning of surgery. * If Blood Sugar is GREATER THAN 150, take HALF of your regular dose of: insulin NPH isoph U-100 human 100 unit/mL subcutaneous suspension (Humulin N NPH U-100 Insulin (isophane susp)) 20 - 25 unit subcut UD * If Blood Sugar is LESS THAN 150, DO NOT TAKE ANY: insulin NPH isoph U-100 human 100 unit/mL subcutaneous suspension (Humulin N NPH U-100 Insulin (isophane susp)) 20 - 25 unit subcut UD Other Notes If you have any questions please call us at [phone] or [phone] or [phone] or [phone]
--- NOTE | 2023-11-12 14:01 | Anesthesiology Consultation ---
Date of Service November 12, 2023 Assessment & Plan (1) Encounter for pre-operative examination: - Check BSG AM DOS - Infectious disease screening: Per assessment on 11/12/23: No known recent infectious disease contacts or current infectious disease symptoms. - Outpatient joint assessment: Pt currently scheduled for inpatient pathway. If surgeon requests review for outpatient joint pathway, patient is not recommended candidate for outpatient joint program from anesthesia standpoint based on available information. - Aortic stenosis: DSE done 09/01/23- per report, Moderate to severe aortic stenosis. "The severity may be more significant given the drop in blood pressure at peak dobutamine infusion." Cardiology note 09/01/23: Stress test reviewed. "No change in cardiac risk. She remains intermediate risk secondary to valvular heart disease. Low risk with regard to ischemic complication. She should proceed per my prior note." > Patient had Left TKA (09/05/23): SAB at L3-4 x1 attempt + regional at [facility]. Patient states at PAT 11/13/23 that no changes to cardiopulmonary/functional status since recent cardiology evaluation. - PCP visit (10/09/23): "Pt reassured that faint blush on LE is due to edema. Pt was highly encouraged to wear RAFAEL hose. Per daughter, ortho had advised for pt to wear compression stockings for at least 6 wks after surg. Pt was also advised to elevate LEs, limit sodium intake and increase water intake. Pt was also advised that as she ambulates more, this will also help decrease edema. Pt will have more edema in knee with replacement. f/u prn" Chart Review Chart Review: Acceptable Risk for Surgery (pending evaluation DOS) and Patient seen in Pre Admission Testing Teaching & Discussion Pre-Anesthesia Teaching/Discussion Notes: Instructed NPO after midnight before surgery,except medications with 15 cc of water. Medication instructions provided according to the PAT guidelines. History Surgery Operation Date: 12/08/23 07:00 Proposed Procedures p Right Reverse Total Shoulder Arthroplasty - Brock iWn DO Height/Weight Height: 5 ft Weight: 76.4 kg Allergies Allergy/AdvReac Type Severity Reaction Status Date / Time adhesive tape Allergy Skin Verified 10/30/23 11:11 redness No Known Drug Allergies Allergy Verified 10/30/23 11:11 Narcotics AdvReac N/V Uncoded 11/12/23 14:10 Medications Home Medications Medication Instructions Recorded Confirmed Last Taken Saccharomyces boulardii 250 mg 5,000 mmu cells PO DAILY 09/21/21 10/30/23 09/04/23 08:00 capsule (Daily Probiotic (S. boulardii)) insulin aspart U-100 100 unit/mL See Rx Instructions subcut DAILY 03/22/22 10/30/23 03/08/23 (3 mL) subcutaneous pen (Novolog PRN Other FlexPen U-100 Insulin aspart) insulin NPH isoph U-100 human 100 20 - 25 unit subcut UD 09/30/22 10/30/23 09/04/23 22:00 unit/mL subcutaneous suspension (Humulin N NPH U-100 Insulin (isophane susp)) cholecalciferol (vitamin D3) 25 25 mcg PO QAM 11/25/22 10/30/23 09/04/23 08:00 mcg (1,000 unit) capsule blood sugar diagnostic (Contour #100 ea 05/19/23 10/03/23 Unknown Next Test Strips) potassium chloride 10 mEq 10 meq PO QAM #30 caps 07/22/23 10/30/23 09/04/23 08:00 capsule,extended release lisinopril 20 mg tablet 20 mg PO QAM #90 tabs 07/30/23 10/30/23 09/04/23 08:00 omeprazole 40 mg capsule,delayed 40 mg PO QAM #90 caps 08/13/23 10/30/23 09/05/23 07:00 release metformin 500 mg tablet 500 mg PO BID #60 tabs 08/20/23 10/30/23 09/04/23 08:00 Wheeled Walker #1 ea 08/26/23 10/03/23 Unknown aspirin 81 mg tablet,delayed 81 mg PO BID 45 days #90 tabs 09/03/23 10/30/23 Unknown release (Humphrey Low Dose Aspirin) ezetimibe 10 mg tablet (Zetia) 10 mg PO HS #90 tabs 09/30/23 10/30/23 Unknown acetaminophen 500 mg tablet 1,000 mg PO TID PRN pain 10/30/23 10/30/23 Unknown (Tylenol Extra Strength) amlodipine 10 mg tablet (Norvasc) 5 mg PO QAM 10/30/23 10/30/23 Unknown ascorbic acid (vitamin C) 500 mg 500 mg PO DAILY 10/30/23 10/30/23 Unknown tablet (Vitamin C) metoprolol succinate 50 mg 50 mg PO QAM 10/30/23 10/30/23 Unknown tablet,extended release 24 hr mirabegron 25 mg tablet,extended 25 mg PO QAM 10/30/23 10/30/23 Unknown release 24 hr (Myrbetriq) rosuvastatin 10 mg tablet 10 mg PO QAM 10/30/23 10/30/23 Unknown venlafaxine 75 mg capsule,extended 75 - 150 mg (1 - 2 x 75 mg) PO UD 11/06/23 Unknown release 24 hr #90 caps alprazolam 0.25 mg tablet 0.25 mg PO BID #60 tabs 11/12/23 Unknown Past Medical History Medical History Anxiety and depression Aortic stenosis DSE 08/2023: Moderate to severe aortic stenosis. "The severity may be more significant given the drop in blood pressure at peak dobutamine infusion." ERIC 0.79-0.82cm2, MG 20.4mmhg Diabetes mellitus type 2, insulin dependent IDDM GERD (gastroesophageal reflux disease) History of COVID-19 01/2021, no residual symptoms Hyperlipidemia Hypertension Memory deficits Rotator cuff arthropathy of right shoulder Sleep apnea No device Urinary bladder incontinence Exercise / Class Metabolic Activity III < 4 Walking/Shop/Light housework Past Family History Family History Sister Myocardial infarction Anxiety Depression Heart disease Hypertension Lung disease Mother Anxiety Depression Brother Anxiety Depression Heart disease Hypertension Father Diabetes Heart disease Hypertension Denies family history of Colon cancer Ovarian cancer Prostate cancer Breast cancer Past Surgical History Surgical History History of breast biopsy Benign History of cataract surgery R/L History of colonoscopy History of hysterectomy History of total left knee replacement Left TKA (09/05/23): SAB at L3-4 x1 attempt + regional at [facility] Hx of rotator cuff surgery Right Shoulder Arthroscopy, Rotator Cuff Repair, Subacromial Decompression (12/30/22): Grade view 1, Alanis#2, ETT 7.5, atraumatic + regional at [facility] S/P hernia repair Past Anesthesia History No Hx of Anesthesia Complications and No Family Hx of Anesthesia Complications History of PONV No Hx of PONV and No Hx of Motion Sickness Social History Smoking Status: Never smoker Do You Dip or Chew Tobacco: No Hx Alcohol Use: No Hx Substance Use: No substance use type: does not use Review of Systems Patient denies chest pain, shortness of breath, fever, chills, cough, wheezing, palpitations. Physical Exam Vital Signs BP 101/67 P 87 TEMP 97.8 SP02 95%RA RESP 18 Physical Full cervical extension range of motion. Full TMJ range of motion. TMD 3 finger breaths Mallampati Score 3 Dentition: missing sides/molars. + crowns Lungs: clear throughout to auscultation Cardiac: regular rate and rhythm, III/ systolic murmur with carotid radiation Spine: normal Carotid arteries: negative bruit Extremities: no LE edema Lab Results Anesthesia Preop Results Results Anesthesia Widget: WBC 8.40 K/ul (4.8-10.8) 11/12/23 Hgb 11.3 g/dl (12.0-16.0) L 11/12/23 Hct 35.2 % (37.0-47.0) L 11/12/23 Plt 364 K/uL (130-400) 11/12/23 Na 141 mmol/L (136-145) 11/12/23 K 4.8 mmol/L (3.5-5.1) 11/12/23 Cl 104 mmol/L (98-107) 11/12/23 CO2 30 mmol/L (21-32) 11/12/23 BUN 21 mg/dl (6-23) 11/12/23 Creat 0.93 mg/dl (0.6-1.2) 11/12/23 Glucose Level 125 mg/dl (70-99(Fasting)) H 11/12/23 PT 10.3 Seconds (9.0-12.0) 11/12/23 PTT 24 Seconds (21-31) 11/12/23 INR 0.9 (0.9-1.1) 11/12/23 HA1c 7.0 % (4.5-5.6) H 11/12/23 Blood Type B Positive 11/12/23 Antibody Screen NEGATIVE 11/12/23 Testing Electrocardiogram Date: 08/27/23 NSR at 92bpm. iRBBB. Possible RVH. No significant change compared to 03/09/2023 per transplant registered nurse comparison. Chest X-Ray Date: 11/12/23 FINDINGS: No pneumothorax. No pleural effusions. The lungs are clear. The heart is normal in size. There are calcifications within the aortic knob. No acute fractures. Mild elevation of the right hemidiaphragm, unchanged. IMPRESSION: No acute process. Echocardiogram Date: 03/09/23 EF 55-60%. No RWMA. No LVH. Mild MR. Normal estimated RVSP. Moderate aortic stenosis (ERIC 1.0-1.1cm2, MG 33.1 mmhg). Stress Test Date: 09/01/23 Type: DSE Normal dobutamine echocardiogram without evidence of inducible ischemia. Moderate concentric LVH. Moderate to severe aortic stenosis. "The severity may be more significant given the drop in blood pressure at peak dobutamine infusion ." ERIC 0.79-0.82cm2, MG 20.4mmhg. Mild MR. RVSP normal.
[~2023-12-08 07:36] MED LIST changes: -ROPIVACAINE 0.5% 5 MG/ML 30 ML VIAL ONE
[2023-12-08] MEDS ORDERED: PROPOFOL IV EMULSION 10 MG/ML 20 ML VIAL IV ONE (08:36)
[2023-12-08] MEDS ORDERED: MIDAZOLAM HCL 1 MG/ML 2ML VIAL ONE (08:36)
[2023-12-08] MEDS ORDERED: GLYCOPYRROLATE 0.2 MG/ML VIAL ONE (08:36)
[2023-12-08] MEDS ORDERED: fentaNYL citrate PF 100 MCG/2 ML VIAL ONE (08:36)
[2023-12-08] MEDS ORDERED: LIDOCAINE 2% 2 ML VIAL/AMP(20MG/ML) INFIL ONE (08:36)
[2023-12-08] MEDS ORDERED: DEXAMETHASONE SOD INJ 4 MG/ML VIAL ONE (08:36)
[2023-12-08] MEDS ORDERED: ROCURONIUM BROMIDE 10 MG/ML 5 ML VIAL IV ONE (08:36)
[2023-12-08] MEDS ORDERED: ONDANSETRON INJ 2 MG/ML 2 ML VIAL ONE (08:36)
[2023-12-08] MEDS: LR 60ML/HR IV SCH (08:56)
[2023-12-08] MEDS: LR 15ML/HR IV SCH (08:56)
[2023-12-08] MEDS: ACETAMINOPHEN 500 MG TAB PO SCH ×2 (08:57→14:44)
[2023-12-08] MEDS: FAMOTIDINE 20 MG TAB PO SCH (08:57)
[2023-12-08] MEDS: dexAMETHasone**PF** 10 MG/ML VIAL IV SCH (08:57)
[2023-12-08] MEDS: GABAPENTIN 300 MG CAP PO SCH (08:57)
--- NOTE | 2023-12-08 09:23 | History & Physical Bridge Note ---
Date of Service December 08, 2023 History & Physical Bridge Note I have examined the patient, reviewed the History & Physical and in the interval since the performance of the History & Physical I have noted the following changes of clinical significance: no changes noted
[2023-12-08] MEDS ORDERED: fentaNYL citrate PF 100 MCG/2 ML VIAL IV PRN (09:40)
[2023-12-08] MEDS ORDERED: ePHEDrine sulfate 50 MG/ML AMP IV PRN (09:40)
[2023-12-08] MEDS ORDERED: ATROPINE SULFATE 0.1 MG/ML 10ML SYR IV PRN (09:40)
[2023-12-08] MEDS ORDERED: ONDANSETRON INJ 2 MG/ML 2 ML VIAL IV PRN ×2 (09:40→12:59)
[2023-12-08] MEDS ORDERED: SUGAMMADEX SODIUM 200 MG/2 ML VIAL IV ONE (09:48)
[2023-12-08] MEDS: TRANEXAMIC ACID 1,000 MG **IV Pre-op IV SCH (10:07)
[2023-12-08] MEDS: ceFAZolin 2000MG 2,000 MG/15 ML SYR IV SCH ×2 (10:19→18:15)
[2023-12-08] MEDS ORDERED: PHENYLEPHRINE 100MCG/ML 10ML SYR IV ONE (10:45)
[2023-12-08] MEDS: ROPIV 0.5% 246mg, Ketorolac 30mg, EPINEPHrine 0.5mg in NSS INFIL SCH (11:00)
[2023-12-08] MEDS: ORTHO JOINT ANESTHETIC ONE (11:00)
[2023-12-08] MEDS: TRANEXAMIC ACID 1,000 MG **IV Intra-op IV SCH (11:30)
--- NOTE | 2023-12-08 11:34 | Operative Report ---
PG Post Operative Report Pre & Post Diagnosis Operation Date: 12/08/23 10:00 Pre-Op Diagnosis: Cuff tear arthropathy of the right shoulder Post-Op Diagnosis: Cuff tear arthropathy of the right shoulder I identified the patient and participated in the time-out.: Yes Procedure Operation Date: 12/08/23 10:00 Actual Procedures p Right Reverse Total Shoulder Arthroplasty(Right) - Brock Win DO Surgeon Brock Win DO Ammonia Worker Brock Cartwright PA-C Estimated Blood Loss 150 Findings Consistent with Post-Op Diagnosis Specimens Right humeral head Description of Procedure Implants used: I used a Biomet Comprehensive reverse total shoulder arthroplasty system with a size 6 press fit micro humeral stem, a +6 offset humeral tray and a standard humeral bearing, a 25 mm small augment baseplate with a 6.5 mm central screw and superior and inferior locking screws, and a size 36 mm eccentric glenosphere. Dorita arrived at [facility] for the above procedure. She was seen in the preoperative holding area and the operative extremity was identified and signed. She was given a preoperative antibiotic, TXA, and an interscalene nerve block. She was taken back to the operating room, laid on table in supine position, and put under general anesthesia. She was then put into the beachchair position. The shoulder was then prepped and draped in sterile fashion. A timeout was done and the patient and the operative extremity was properly identified. A deltopectoral approach was used. Dissection was taken down through the fascia and the deltoid was retracted laterally and the conjoined tendon was retracted medially. The anterior shoulder was exposed. The biceps tendon was chronically torn. The subscapularis was then directly released off the lesser tuberosity with a peel technique. The inferior capsule was released and the humeral head was dislocated. A canal finding reamer was sent down the center of the humeral canal. Sequential reaming up to a size 6 reamer was done. Off that reamer, a proximal humeral resection guide was placed. The proximal humerus was resected at 135 of inclination and 25 of retroversion. Osteophytes were then removed and the glenoid was exposed. Time was spent doing a complete capsular and labral release. The glenoid guide was then placed in the inferior aspect of the glenoid. A 3.2 mm Steinmann pin was then placed into the glenoid vault at 10 of inclination. The glenoid baseplate was then reamed. The final size 25 mm small augment bas eplate was then impacted in the place. A 6.5 mm central screw was then placed followed by superior and inferior locking screws. A 36 mm eccentric glenosphere was then impacted into place. Surrounding soft tissues were then injected with 100 cc an orthopedic pain control cocktail. The proximal humerus was then exposed. Sequential broaching of the humerus up to a size 6 broach was done. Off that broach a +6 offset humeral tray was trialed. The shoulder was then reduced, brought through a full range of motion, and felt to be stable. The shoulder was then dislocated and the broach was removed. The final size 6 micro press-fit humeral stem was then impacted into place. A standard humeral bearing was then snapped onto a +6 offset humeral tray. The humeral tray was then impacted onto the humeral stem. The shoulder was once again reduced, brought through a full range of motion, and felt to be stable. The subscapularis was poor quality. The subscapularis was unable to be repaired. A dilute betadyne lavage was then done for 3 minutes. The joint was then irrigated with normal saline solution. Hemostasis was obtained. The interval was closed with 2-0 Vicryl suture. The skin was then closed with 2-0 Vicryl and nemesio. A Silverlon dressing was placed and the arm was rested in a regular arm sling. She was then extubated and transferred to a hospital bed. She taken to the postanesthesia care unit in stable condition. She tolerated the procedure well. Brock Cartwright PA-C, was present for the entire procedure. He was critical for patient positioning, prepping, draping, retraction exposure, wound closure and application of sterile dressing. I attest to the content of the Intraoperative Record and any orders documented therein. Any exceptions are noted below.
--- NOTE | 2023-12-08 12:57 | Anesthesiology Progress Note ---
Date of Service December 08, 2023 Anesthesia Post Procedure Vital Signs Vital Signs: Temp Pulse Pulse Resp BP Pulse Ox O2 Del Method 12/08/23 12:40 36.4 C L 96 H 18 152/87 H 96 Nasal Cannula 12/08/23 12:30 98 H 20 145/95 H 97 Oxymask 12/08/23 12:20 99 H 16 155/98 H 96 Oxymask 12/08/23 12:10 96 H 20 157/87 H 99 Oxymask 12/08/23 12:00 100 H 22 150/82 H 100 Oxymask 12/08/23 11:50 36.2 C L 102 H 14 155/95 H 95 Oxymask 12/08/23 08:30 36.5 C 86 18 137/98 96 Room Air O2 Flow Rate 12/08/23 12:40 2 12/08/23 12:30 3 12/08/23 12:20 5 12/08/23 12:10 5 12/08/23 12:00 5 12/08/23 11:50 10 12/08/23 08:30 Transfer of Care Handoff Completed per policy Notes Mental Status: alert / awake / arousable Patient Amnestic to Procedure: Yes Nausea / Vomiting: adequately controlled Pain: adequately controlled Airway Patency, RR, SpO2: stable & adequate BP & HR: stable & adequate Hydration State: stable & adequate Anesthetic Complications: no major complications apparent and Pt Satisfied with anesthetic care
[2023-12-08] MEDS ORDERED: bisacodyL 10 MG SUPP PR PRN (12:59)
[2023-12-08] MEDS ORDERED: MAGNESIUM HYDROXIDE SUSP 30 ML UDC PO PRN (12:59)
[2023-12-08] MEDS ORDERED: PHARMACY GLYCEMIC MGMT CONSULT PRN (12:59)
[2023-12-08] MEDS ORDERED: NALOXONE HCL 0.4 MG/1 ML VIAL/CARP IV PRN (12:59)
[2023-12-08] MEDS ORDERED: oxyCODONE HCL IR 5 MG TAB (IMMEDIATE RELEASE) PO PRN (12:59)
[2023-12-08] MEDS ORDERED: METOCLOPRAMIDE HCL INJ 5 MG/ML 2 ML VIAL IV PRN (12:59)
[2023-12-08] MEDS ORDERED: HYDROmorphone INJ 0.5 MG/0.5 ML SYR IV PRN (12:59)
--- NOTE | 2023-12-08 13:26 | XRay Report ---
XR shoulder RT min 2V routine CLINICAL HISTORY: Post shoulder surgery COMPARISON STUDY: None. FINDINGS: Status post reverse right total shoulder arthroplasty. The hardware is intact. No fracture or dislocation. Skin nemesio are in place. IMPRESSION: Status post reverse right total shoulder arthroplasty. No evidence for hardware complica tion ACT 112: Negative or not required by law. Electronically signed by: London Rodriguez M.D. 12/08/2023 1:25 PM
--- NOTE | 2023-12-08 14:03 | Pharmacy Report ---
Pharmacy Glycemic Short Note 2 - Date of Service December 08, 2023 - Glycemic Short BSG Results (Last 24 hours): 12/08/23 12/08/23 12/08/23 08:28 12:32 12:35 POC Glucose 129 H 215 H 198 H OUTPATIENT ANTIDIABETIC REGIMEN: * insulin NPH 20-25 units SQ BIDM * Novolog SS * metformin 500mg PO BID * HbA1c 7.0% (11/12/23) ASSESSMENT: * Dorita is an 78 YOF admitted status post right total shoulder arthroplasty with a history of T2DM. Pharmacy has been consulted to assist with glycemic management while inpatient. * Fasting BSG this AM within goal range, quickly joana over 200mg/dL at lunchtime, given 10mg IV dexamethasone preop, will give full 0.4units/kg and plan to restart home NPH tomorrow morning once steroids wear off * Novolog initiated at a weight based stress of 3 based on her home insulin usage. PLAN FOR INPATIENT GLYCEMIC CONTROL: * Hold outpatient oral diabetes medications * Basal insulin * Lantus 30 units SQ x1 * Restart home NPH tomorrow (dose TBD) * Bolus insulin * NovoLog per scale ACHS or Q6hrs while NPO * Goal Range: Low 110 mg/dL - High 140 mg/dL * Correction Factor: 20 mg/dL/unit * Nutritional / Prandial insulin per carb ratio of 1 unit per 6 grams CHO consumed
[2023-12-08] MEDS: INSULIN ASPART PER UNIT CHARGE SC SCH (14:31)
[2023-12-08] MEDS: LANTUS PER UNIT CHARGE SC ONE (14:31)
[2023-12-08] MEDS: SODIUM CHLORIDE 0.9% 1,000 ML IV SCH (14:41)
[2023-12-08] MEDS: KETOROLAC TROMETHAMINE 15 MG/ML VIAL IV SCH (14:44)
[2023-12-08] MEDS: DOCUSATE SODIUM 100 MG CAP PO SCH (20:43)
[2023-12-08] MEDS: SENNA 8.6 MG TAB PO SCH (20:44)
[2023-12-08] MEDS: ASPIRIN 81 MG ECTAB PO SCH (20:44)
[2023-12-08] MEDS: EZETIMIBE 10 MG TAB PO SCH (20:45)
[2023-12-08] MEDS: VENLAFAXINE HCL XR 75 MG CAPXR PO SCH (20:46)
[2023-12-08] MEDS: ALPRAZolam 0.25 MG TABLET PO SCH (21:02)
[2023-12-09] MEDS: INSULIN ASPART PER UNIT CHARGE SC SCH (00:06)
[2023-12-09 03:42] VITALS: TEMP 97.5
--- NOTE | 2023-12-09 07:09 | Orthopedic Progress Note ---
Date of Service December 09, 2023 Assessment & Plan (1) Status post reverse total replacement of right shoulder: Overall she is doing fairly well. She is not having much pain in the right shoulder. She will be seen by physical therapy today for ambulation and range of motion exercises. She can be discharged home later today. She will follow- up orthopedics in 2 weeks. Serge Kevin was seen and examined at bedside this morning. Overall she is doing very well. She is not having much pain in the right shoulder. She has been up and ambulating. She has no complaints.. Review of Systems All systems reviewed & are unremarkable except as noted in HPI & below. Physical Exam On physical examination of the right shoulder, the dressing is clean and dry. She is wearing her sling as instructed. She has active motion of her hand and her wrist.. Results & Data Results & Data Laboratory Results . Diagnostic Findings Postoperative x-rays of the right shoulder show the prosthesis to be in anatomic alignment without any evidence of fracture, dislocation, or loosening.. PG Care Time/CCT Total # of Minutes Spent Total Time Spent with Patient: Total time spent is greater than 50% in coordination of care (as documented) at patient's floor/unit and/or counseling patient: Coding Level of Care Code 22436 Post Operative Follow-Up Diagnoses Status post reverse total replacement of right shoulder Z96.611
--- NOTE | 2023-12-09 07:09 | Discharge Summary ---
Date of Service December 09, 2023 Principal Diagnosis Same as "Discharge Diagnosis" noted below under Discharge Instructions. Discharge Exam On physical examination of the right shoulder, the dressing is clean and dry. She is wearing her sling as instructed. She has active motion of her hand and her wrist.. Discharge Data Procedures Performed Operation Date: 12/08/23 10:00 Actual Procedures p Right Reverse Total Shoulder Arthroplasty(Right) - Brock Win DO Ordered Studies 12/08/23 05:00 US - OR guided needle placemen Routine Hospital Course (1) Status post reverse total replacement of right shoulder: On December 08, 2023 Dorita arrived at [facility] and underwent a right reverse shoulder replacement without complication. She had a general anesthetic and a right interscalene nerve block. Postoperatively she was placed in a sling and transferred to the general orthopedic floors. Her hospital course was uneventful. On postop day #1, her vital signs were stable and her pain was well-controlled. She was able to participate well with physical therapy doing ambulation and range of motion exercises. She was then discharged to home. She will follow-up orthopedics in 2 weeks. PG Care Time/CCT Total # of Minutes Spent Total Time Spent with Patient: Total time spent is greater than 50% in coordination of care (as documented) at patient's floor/unit and/or counseling patient: Discharge Plan Discharge Items Patient Disposition: Home - Self-Care Reason For Visit: Right Shoulder Arthritis Discharge Diagnosis: Right reverse shoulder replacement Activity: Per Instructions section Non-emergency contact: Surgeon Call non-emergency contact if: your wound has increased redness and your wound has increased drainage Follow-up/Referrals: Lilian Oh MD [Primary Care Provider] - Diet: Regular Addtl Attending Provider Instructions: Activity and Therapy Recommendations: * If you are using [facility] then therapy will be provided at your home until they feel you have accomplished all of your goals. * If you are using [facility] then Physical Therapy will be provided until they feel you are ready to start Outpatient Physical Therapy. * If you are not using home therapy then Outpatient Physical Therapy should start about 3-5 days from your day of surgery. Therapy will last about 8-12 weeks * Wear your sling for 3 weeks, unless otherwise instructed. You may remove your sling to shower and to dress, but otherwise, you should be in your sling at all times, including while sleeping * The shoulder replacement is very stable and you can use your hand while in the sling * You were shown a series of exercises in the hospital. Do these exercises daily including the exercises you were shown in physical therapy. Medications: * Narcotic You will likely be sent home from the hospital with a prescription for the narcotic pain medication that worked best throughout your stay. * Cefadroxil -take the antibiotic twice a day for 10 days to help prevent infection. * Other medications may be prescribed for specific circumstances. If you have any questions, please call the office at . * Resume previous home medications unless otherwise instructed Dressing Care: Leave the Silverlon dressing in place for 7 days. After 7 days you may remove the dressing. If the incision is not draining then you may leave the nemesio open to air. If there is a little bit of drainage or if the nemesio are getting stuck on your clothing then cover the incision with a dry dressing. The nemesio will be removed at your 2 week follow-up appointment. Showering: You may shower with the Silverlon dressing in place. Do not let the shower spray hit the dressing directly. Pat the Silverlon dressing dry. If the dressing becomes wet underneath, then simply remove the dressing. Keep the incision dry until you are 7 days out from the day of surgery. After 7 days you may remove the Silverlon dressing and shower with the nemesio exposed. Let soapy water run over the nemesio and pat them dry. Do not scrub or soak the incision. Things To Watch For: * Drainage from the incision site that occurs more than one week after your surgery. * Increased redness at the incision site. * Fever above 102 degrees Fahrenheit. * Unusual chest pain or shortness of breath. * Call [facility] at with any of the above problems Follow-Up Visit: Follow-up with Dr. Win's PA (Brock Cartwright) 2-3 weeks after your day of surger y. He will remove your nemesio and answer any questions. If you have any additional questions or concerns, Dr Win is usually in the office at the same time and will be available An appointment was probably scheduled when you signed-up for surgery in the office. If you have any questions call More detailed instructions as well as Frequently Asked Questions were provided in a folder by our office when you signed-up for surgery. Please review these instructions when you get home. If you have any further questions or concerns, please feel free to call the office at [phone] Pending Studies at Discharge: No Stand-Alone Forms: My [facility] Causes, Smoking Cessation Medications and DC Order Prescriptions: New tramadol 50 mg tablet 50 mg PO Q6H PRN (Reason: pain) Qty: 30 0RF cefadroxil 500 mg capsule 500 mg PO BID 10 Days Qty: 20 0RF Continued potassium chloride 10 mEq capsule, extended release 10 meq PO QAM Qty: 30 5RF lisinopril 20 mg tablet 20 mg PO QAM Qty: 90 3RF omeprazole 40 mg capsule,delayed release(DR/EC) 40 mg PO QAM Qty: 90 3RF (DME) Wheeled Walker [facility] See Rx Instructions .MEDSUPPLY Qty: 1 0RF Rx Instructions: As directed aspirin [Humphrey Low Dose Aspirin] 81 mg tablet,delayed release (DR/EC) 81 mg PO BID 45 Days Qty: 90 0RF Rx Instructions: Take to prevent blood clots. ezetimibe [Zetia] 10 mg tablet 10 mg PO HS Qty: 90 3RF venlafaxine 75 mg capsule,extended release 24hr 75 - 150 mg PO UD Qty: 90 3RF Rx Instructions: Take 2 caps daily am and 1 cap daily in pm orally; alprazolam 0.25 mg tablet 0.25 mg PO BID Qty: 60 0RF metformin 500 mg tablet 500 mg PO BID Qty: 120 0RF Rx Instructions: Take 500 mg twice daily by mouth. (DME) Contour Next Test Strips Strip See Rx Instructions .Route Qty: 100 5RF Rx Instructions: test blood sugar 3 x daily amlodipine [Norvasc] 10 mg tablet 10 mg PO QAM Qty: 90 3RF insulin aspart U-100 [Novolog FlexPen U-100 Insulin] 100 unit/mL (3 mL) insulin pen See Rx Instructions subcut DAILY PRN (Reason: Other) Rx Instructions: Inject per sliding scale PRN Humulin N NPH U-100 Insulin 100 unit/mL suspension 20 - 25 unit subcut UD Rx Instructions: Inject 20-25 units BID Saccharomyces boulardii [Daily Probiotic (S. boulardii)] 250 mg capsule 5,000 mmu cells PO DAILY cholecalciferol (vitamin D3) 25 mcg (1,000 unit) capsule 25 mcg PO QAM metoprolol succinate 50 mg tablet extended release 24 hr 50 mg PO QAM rosuvastatin 10 mg tablet 10 mg PO QAM ascorbic acid (vitamin C) [Vitamin C] 500 mg Tablet 500 mg PO DAILY Discharge Orders: Discharge Order (Routine); Ordered 12/09/23 Ordered By: Brock Win Admission Data Admit Date/Time: 12/08/23 11:50 Attending Provider: Brock Win Admit Provider: Brock Win Primary Care Provider: Lilian Oh
[2023-12-09 07:28] VITALS: BP 147/78; PULSE 73; RESP 16; O2SAT 93
[2023-12-09] MEDS: METOPROLOL SUCC 50MG EXT REL TAB PO SCH (07:49)
[2023-12-09] MEDS: lisinopril 20 MG TAB PO SCH (07:49)
[2023-12-09] MEDS: amLODIPine BESYLATE 5 MG TAB PO SCH (07:49)
[2023-12-09] MEDS: VENLAFAXINE HCL XR 150 MG CAPXR PO SCH (07:49)
[2023-12-09] MEDS: SACCHAROMYCES BOULARDII 250 MG CAP PO SCH (07:50)
[2023-12-09] MEDS: MULTIVITAMIN TAB PO SCH (07:50)
[2023-12-09] MEDS: ROSUVASTATIN CALCIUM 10 MG TAB PO SCH (07:50)
[2023-12-09] MEDS: POTASSIUM CHLORIDE 10 MEQ TABCR PO SCH (07:50)
[2023-12-09] MEDS: NovoLIN-N (NPH) PER UNIT CHARGE SQ ONE (08:02)
[2023-12-09] MEDS ORDERED: VENLAFAXINE HCL XR 75 MG CAPXR PO SCH (09:00)
== END 2023-12-09 11:15 | disposition home health service (06) ==
LOC: ASU 07:36 → 3E 07:36

== ENCOUNTER 2024-06-30 08:40 | Observation (INO) ==
--- NOTE | 2024-05-31 14:24 | PAT Medication Instructions ---
Medication Instructions Date of Service May 31, 2024 Home Medications Medication Instructions Recorded lisinopril 20 mg tablet 20 mg PO QAM #90 tabs 07/30/23 omeprazole 40 mg capsule,delayed 40 mg PO QAM #90 caps 08/13/23 release Wheeled Walker #1 ea 08/26/23 ezetimibe 10 mg tablet (Zetia) 10 mg PO HS #90 tabs 09/30/23 amlodipine 10 mg tablet (Norvasc) 10 mg PO QAM #90 tabs 12/03/23 [facility] test strips (blood #200 ea 12/09/23 sugar diagnostic) potassium chloride 10 mEq 10 meq PO QAM #30 caps 02/03/24 capsule,extended release metoprolol succinate 50 mg 50 mg PO QAM #90 tabs 03/12/24 tablet,extended release 24 hr venlafaxine 75 mg capsule,extended 75 - 150 mg (1 - 2 x 75 mg) PO UD 03/22/24 release 24 hr #90 caps rosuvastatin 10 mg tablet 10 mg PO QAM #90 tabs 04/29/24 metformin 500 mg tablet 500 mg PO BID #120 tabs 05/21/24 alprazolam 0.25 mg tablet 0.25 mg PO BID #60 tabs 05/27/24 Saccharomyces boulardii 250 mg capsule (Daily Probiotic (S. boulardii)) 5,000 mmu cells PO DAILY insulin aspart U-100 100 unit/mL (3 mL) subcutaneous pen (Novolog FlexPen U-100 Insulin aspart) See Rx Instructions subcut DAILY PRN cholecalciferol (vitamin D3) 25 mcg (1,000 unit) capsule 25 mcg PO QAM lisinopril 20 mg tablet 20 mg PO QAM omeprazole 40 mg capsule,delayed release 40 mg PO QAM ezetimibe 10 mg tablet (Zetia) 10 mg PO HS ascorbic acid (vitamin C) 500 mg tablet (Vitamin C) 500 mg PO 3XWK amlodipine 10 mg tablet (Norvasc) 10 mg PO QAM insulin NPH isoph U-100 human 100 unit/mL subcutaneous suspension (Humulin N NPH U-100 Insulin (isophane susp)) 20 - 25 unit subcut BID potassium chloride 10 mEq capsule,extended release 10 meq PO QAM metoprolol succinate 50 mg tablet,extended release 24 hr 50 mg PO QAM venlafaxine 75 mg capsule,extended release 24 hr 75 - 150 mg (1 - 2 x 75 mg) PO UD rosuvastatin 10 mg tablet 10 mg PO QAM metformin 500 mg tablet 500 mg PO BID alprazolam 0.25 mg tablet 0.25 mg PO BID acetaminophen 500 mg tablet (Acetaminophen Extra Strength) 1,000 mg PO Q6H PRN Pain ibuprofen 200 mg tablet (Advil) 400 mg PO Q6H PRN Pain omega 3-hup-vbp-fish oil 1,000 mg (120 mg-180 mg) capsule (Fish Oil) 1 cap PO QAM ASK your surgeon for instructions ibuprofen 200 mg tablet (Advil) 400 mg PO Q6H PRN Pain STOP taking 2 weeks before surgery omega 8-iag-ciu-fish oil 1,000 mg (120 mg-180 mg) capsule (Fish Oil) 1 cap PO QAM DO NOT take the morning of surgery Saccharomyces boulardii 250 mg capsule (Daily Probiotic (S. boulardii)) 5,000 mmu cells PO DAILY insulin aspart U-100 100 unit/mL (3 mL) subcutaneous pen (Novolog FlexPen U-100 Insulin aspart) See Rx Instructions subcut DAILY PRN cholecalciferol (vitamin D3) 25 mcg (1,000 unit) capsule 25 mcg PO QAM lisinopril 20 mg tablet 20 mg PO QAM ascorbic acid (vitamin C) 500 mg tablet (Vitamin C) 500 mg PO 3XWK potassium chloride 10 mEq capsule,extended release 10 meq PO QAM metformin 500 mg tablet 500 mg PO BID Take morning of surgery With a small sip of water, OTHERWISE NOTHING TO EAT OR DRINK AFTER MIDNIGHT: omeprazole 40 mg capsule,delayed release 40 mg PO QAM amlodipine 10 mg tablet (Norvasc) 10 mg PO QAM metoprolol succinate 50 mg tablet,extended release 24 hr 50 mg PO QAM venlafaxine 75 mg capsule,extended release 24 hr 75 - 150 mg (1 - 2 x 75 mg) PO UD rosuvastatin 10 mg tablet 10 mg PO QAM alprazolam 0.25 mg tablet 0.25 mg PO BID acetaminophen 500 mg tablet (Acetaminophen Extra Strength) 1,000 mg PO Q6H PRN Pain (if needed) Take evening before surgery ezetimibe 10 mg tablet (Zetia) 10 mg PO HS venlafaxine 75 mg capsule,extended release 24 hr 75 - 150 mg (1 - 2 x 75 mg) PO UD metformin 500 mg tablet 500 mg PO BID alprazolam 0.25 mg tablet 0.25 mg PO BID acetaminophen 500 mg tablet (Acetaminophen Extra Strength) 1,000 mg PO Q6H PRN Pain (if needed) insulin NPH isoph U-100 human 100 unit/mL subcutaneous suspension (Humulin N NPH U-100 Insulin (isophane susp)) 20 - 25 unit subcut BID insulin aspart U-100 100 unit/mL (3 mL) subcutaneous pen (Novolog FlexPen U-100 Insulin aspart) See Rx Instructions subcut DAILY PRN (if needed) Insulin Dependent Diabetic Patients * Test your blood sugar the morning of surgery * If Blood Sugar is GREATER THAN 150, take HALF of your regular dose of: insulin NPH isoph U-100 human 100 unit/mL subcutaneous suspension (Humulin N NPH U-100 Insulin (isophane susp)) (10-12 units) * If Blood Sugar is LESS THAN 150, DO NOT TAKE ANY: insulin NPH isoph U-100 human 100 unit/mL subcutaneous suspension (Humulin N NPH U-100 Insulin (isophane susp)) Other Notes If you have any questions please call us at [phone] or [phone] or [phone] or [phone]
--- NOTE | 2024-06-08 10:47 | Anesthesiology Consultation ---
Date of Service June 08, 2024 Assessment & Plan (1) Encounter for pre-operative examination: Chart Review Chart Review: Acceptable Risk for Surgery and Patient seen in Pre Admission Testing At least moderate to severe aortic stenosis noted to DSE 08/2023- will leave to anesthesiologist discretion whether patient will be done under SAB vs GA but NO fluid bolus ordered - Check BSG AM DOS Narcotics cause N/V- usually tolerates Tramadol well - Patient is NOT an ideal OPJ candidate- currently 23 hour obs Per PAT appt on 06/08/24, no recent illness/disease exposures, illness related symptoms, or recent illness/disease positive tests. Will leave to surgeon's discretion if preop Covid testing needed Patient seen by cardio 03/24/24= seen for follow up. Hyperlipidemiaconsidered high riskhigh intensity statin therapy ongoing. Continue current meds. Moderate aortic valve stenosislast stress echo August 2023moderate aortic stenosis. Preserved EF. No evidence of ischemia. Will repeat echocardiogram in August 2024. HypertensionBP at target. Continue current meds. Pre-operative cardiovascular examination, valvular heart disease: Patient likely to have total knee arthroplasty of the right knee within the next few months. She had a stress echocardiogram last August which was low risk for ischemia. Since that time she has had left knee total arthroplasty as well as right shoulder surgery and did well. She continues without symptoms consistent with ischemia. Therefore, with low risk stress test within the past year and no symptoms she remains a low risk for myocardial ischemic complication of non-cardiovascular surgery at this time. She should proceed with surgery as indicated. We do recommend that she remain on her beta-ingrid on the day of surgery." Right Reverse Total Shoulder Arthroplasty 12/06/23= Done under GA with LMA #4. Left Total Knee Arthroplasty 09/05/23= Done under SAB at L3-4 with 1 attempt Teaching & Discussion Pre-Anesthesia Teaching/Discussion Notes: Instructed NPO after midnight before surgery,except medications with 15 cc of water. Medication instructions provided according to the PAT guidelines. History Surgery Operation Date: 06/30/24 07:00 Proposed Procedures p Right Total Knee Arthroplasty - Spencer Geller MD Height/Weight Height: 5 ft Weight: 83.3 kg Allergies Allergy/AdvReac Type Severity Reaction Status Date / Time adhesive tape Allergy Mild Skin Verified 05/31/24 13:16 redness Narcotics AdvReac Mild N/V Uncoded 05/31/24 13:16 Medications Home Medications Medication Instructions Recorded Confirmed Last Taken Saccharomyces boulardii 250 mg 5,000 mmu cells PO DAILY 09/21/21 05/31/24 12/05/23 capsule (Daily Probiotic (S. boulardii)) insulin aspart U-100 100 unit/mL See Rx Instructions subcut DAILY 03/22/22 05/31/24 03/08/23 (3 mL) subcutaneous pen (Novolog PRN Other FlexPen U-100 Insulin aspart) cholecalciferol (vitamin D3) 25 25 mcg PO QAM 11/25/22 05/31/24 12/05/23 mcg (1,000 unit) capsule lisinopril 20 mg tablet 20 mg PO QAM #90 tabs 07/30/23 05/31/24 12/07/23 08:00 omeprazole 40 mg capsule,delayed 40 mg PO QAM #90 caps 08/13/23 05/31/24 12/08/23 07:30 release Wheeled Walker #1 ea 08/26/23 03/30/24 Unknown ezetimibe 10 mg tablet (Zetia) 10 mg PO HS #90 tabs 09/30/23 05/31/24 12/07/23 22:00 ascorbic acid (vitamin C) 500 mg 500 mg PO 3XWK 10/30/23 05/31/24 12/07/23 08:00 tablet (Vitamin C) amlodipine 10 mg tablet (Norvasc) 10 mg PO QAM #90 tabs 12/03/23 05/31/24 12/08/23 07:30 [facility] test strips (blood #200 ea 12/09/23 03/30/24 Unknown sugar diagnostic) insulin NPH isoph U-100 human 100 20 - 25 unit subcut BID 12/29/23 05/31/24 Unknown unit/mL subcutaneous suspension (Humulin N NPH U-100 Insulin (isophane susp)) potassium chloride 10 mEq 10 meq PO QAM #30 caps 02/03/24 05/31/24 Unknown capsule,extended release metoprolol succinate 50 mg 50 mg PO QAM #90 tabs 03/12/24 05/31/24 Unknown tablet,extended release 24 hr venlafaxine 75 mg capsule,extended 75 - 150 mg (1 - 2 x 75 mg) PO UD 03/22/24 05/31/24 Unknown release 24 hr #90 caps rosuvastatin 10 mg tablet 10 mg PO QAM #90 tabs 04/29/24 05/31/24 Unknown metformin 500 mg tablet 500 mg PO BID #120 tabs 05/21/24 05/31/24 Unknown alprazolam 0.25 mg tablet 0.25 mg PO BID #60 tabs 05/27/24 05/31/24 Unknown acetaminophen 500 mg tablet 1,000 mg PO Q6H PRN Pain 05/31/24 05/31/24 Unknown (Acetaminophen Extra Strength) ibuprofen 200 mg tablet (Advil) 400 mg PO Q6H PRN Pain 05/31/24 05/31/24 Unknown omega 4-yoq-sng-fish oil 1,000 mg 1 cap PO QAM 05/31/24 05/31/24 Unknown (120 mg-180 mg) capsule (Fish Oil) Past Medical History Medical History (Updated 06/08/24 @ 13:00 by Amara Velez PA-C) Anxiety and depression Aortic stenosis DSE 08/2023: Moderate to severe aortic stenosis. "The severity may be more significant given the drop in blood pressure at peak dobutamine infusion." ERIC 0.79-0.82cm2, MG 20.4mmhg Diabetes mellitus type 2, insulin dependent IDDM GERD (gastroesophageal reflux disease) well controlled and stable Hyperlipidemia Hypertension Insomnia Memory deficits No significant issues per patient Sleep apnea No device Urinary incontinence Exercise / Class Metabolic Activity III < 4 Walking/Shop/Light housework (no chest pain or SOB with flat surface/short distance ambulation - usually uses walker/cane ) Past Family History Family History Sister Anxiety Depression Heart disease Myocardial infarction Lung disease Hypertension Mother Anxiety Depression Brother Anxiety Depression Heart disease Hypertension Father Diabetes Heart disease Hypertension Other No family history of adverse response to anesthesia Denies family history of Colon cancer Ovarian cancer Prostate cancer Breast cancer Past Surgical History Surgical History H/O abdominal surgery exploratory surgery>open (d/t infertility) H/O shoulder surgery right x 2 (last done 11/2023) History of breast biopsy Benign History of cataract surgery right/left History of colonoscopy History of esophagogastroduodenoscopy (EGD) History of hysterectomy History of tonsillectomy History of tooth extraction History of total left knee replacement Left TKA (09/05/23): SAB at L3-4 x1 attempt + regional at [facility] S/P hernia repair Past Anesthesia History No Hx of Anesthesia Complications (with exception to N/V with narcotics ) and No Family Hx of Anesthesia Complications History of PONV No Hx of Motion Sickness and History of PONV (due to narcotics ) Social History Smoking Status: Never smoker Do You Dip or Chew Tobacco: No Hx Alcohol Use: No Hx Substance Use: No substance use type: does not use Review of Systems Patient denies chest pain, shortness of breath at rest, cough, wheezing, pal pitations. No hx of seizures, stroke, AR. No hx of blood clots or blood transfusions Physical Exam Vital Signs VITALS BP 126/85 P 77 TEMP 97.5 SP02 96% RESP 16 Constitutional no acute distress ENMT Mouth: no TMJ clicking Thyromental Distance: < 3.5 Finger Breadths (3.0) Mallampati Class: I (smaller mouth) Missing side teeth and molars Caps to molars and side teeth Neck neck extension not limited Respiratory normal respiratory effort; no respiratory distress Auscultation: lungs clear to auscultation bilaterally; no wheezes Cardiovascular Rate/Rhythm: regular rate and regular rhythm Heart Sounds: + murmur (III/ murmur ) Vessels: + carotid bruit (presumed bilateral radiation from murmur) Musculoskeletal Spine: + pain with cervical ROM (mild) Extremities: extremities normal to inspection Psychiatric Orientation: alert Lab Results Anesthesia Preop Results Results Anesthesia Widget: WBC 6.26 K/ul (4.8-10.8) 06/08/24 Hgb 11.4 g/dl (12.0-16.0) L 06/08/24 Hct 34.8 % (37.0-47.0) L 06/08/24 Plt 303 K/uL (130-400) 06/08/24 Na 140 mmol/L (136-145) 06/08/24 K 4.6 mmol/L (3.5-5.1) 06/08/24 Cl 103 mmol/L (98-107) 06/08/24 CO2 32 mmol/L (21-32) 06/08/24 BUN 25 mg/dl (6-23) H 06/08/24 Creat 0.80 mg/dl (0.6-1.2) 06/08/24 Glucose Level 162 mg/dl (70-99(Fasting)) H 06/08/24 PT 10.3 Seconds (9.0-12.0) 06/08/24 PTT 24 Seconds (21-31) 06/08/24 INR 0.9 (0.9-1.1) 06/08/24 HA1c 7.4 % (4.5-5.6) H 06/08/24 Blood Type B Positive 06/08/24 Antibody Screen NEGATIVE 06/08/24 Testing Electrocardiogram Date: 06/08/24 Findings: + NSR @ (77bpm) RBBB Chest X-Ray Date: 11/12/23 FINDINGS: No pneumothorax. No pleural effusions. The lungs are clear. The heart is normal in size. There are calcifications within the aortic knob. No acute fractures. Mild elevation of the right hemidiaphragm, unchanged. IMPRESSION: No acute process. Echocardiogram Date: 03/09/23 EF 55-60%. No RWMA. No LVH. Mild MR. Normal estimated RVSP. Moderate aortic stenosis (ERIC 1.0-1.1cm2, MG 33.1 mmhg). Stress Test Date: 09/01/23 Type: DSE Normal dobutamine echocardiogram without evidence of inducible ischemia. Moderate concentric LVH. Moderate to severe aortic stenosis. "The severity may be more significant given the drop in blood pressure at peak dobutamine infusion ." ERIC 0.79-0.82cm2, MG 20.4mmhg. Mild MR. RVSP normal. (Discussed with Dr. Krueger- patient can proceed as scheduled without additional testing)
--- NOTE | 2024-06-26 09:51 | History & Physical Report ---
Date of Service June 26, 2024 Assessment & Plan (1) Right knee DJD: 78-year-old female now 8+ months out from left knee replacement with a right knee DJD. She is very happy with the left knee and would like to proceed with right knee replacement. Plan we are taken the operating do a right total knee replacement the risks and benefits of this procedure explained and she understands. Informed consent was obtained. She is planned to be discharged to home using [facility]. Will use aspirin for DVT prophylaxis. She gets sick with narcotics but does okay with tramadol and will use that. (2) Status post left knee replacement: (3) Status post reverse total replacement of right shoulder: History of Present Illness Chief Complaint: . Persistent right knee pain and discomfort. Primary Care Provider: Lilian Oh MD . The patient is an 78-year-old female who presents for follow-up and treatment of her knees. Please now 8+ months out from the left knee replacement which is done well. She continues to be bothered by persistent right knee pain and discomfort. As she becomes more active she is having more pain with this. She has had conservative care in the past which has not much. She is happy with her other knee would like to proceed with right knee replacement. Allergies Allergy/AdvReac Type Severity Reaction Status Date / Time adhesive tape Allergy Mild Skin Verified 05/31/24 13:16 redness Narcotics AdvReac Mild N/V Uncoded 05/31/24 13:16 Home Medications Medication Instructions Recorded Confirmed Type Saccharomyces boulardii 250 mg 5,000 mmu cells PO DAILY 09/21/21 05/31/24 Histor y capsule (Daily Probiotic (S. boulardii)) insulin aspart U-100 100 unit/mL See Rx Instructions subcut DAILY 03/22/22 05/31/24 History (3 mL) subcutaneous pen (Novolog PRN Other FlexPen U-100 Insulin aspart) cholecalciferol (vitamin D3) 25 25 mcg PO QAM 11/25/22 05/31/24 History mcg (1,000 unit) capsule lisinopril 20 mg tablet 20 mg PO QAM #90 tabs 07/30/23 05/31/24 Rx omeprazole 40 mg capsule,delayed 40 mg PO QAM #90 caps 08/13/23 05/31/24 Rx release Wheeled Walker #1 ea 08/26/23 03/30/24 Rx ezetimibe 10 mg tablet (Zetia) 10 mg PO HS #90 tabs 09/30/23 05/31/24 Rx ascorbic acid (vitamin C) 500 mg 500 mg PO 3XWK 10/30/23 05/31/24 History tablet (Vitamin C) amlodipine 10 mg tablet (Norvasc) 10 mg PO QAM #90 tabs 12/03/23 05/31/24 Rx Embrace TALK test strips (blood #200 ea 12/09/23 03/30/24 Rx sugar diagnostic) insulin NPH isoph U-100 human 100 20 - 25 unit subcut BID 12/29/23 05/31/24 History unit/mL subcutaneous suspension (Humulin N NPH U-100 Insulin (isophane susp)) potassium chloride 10 mEq 10 meq PO QAM #30 caps 02/03/24 05/31/24 Rx capsule,extended release metoprolol succinate 50 mg 50 mg PO QAM #90 tabs 03/12/24 05/31/24 Rx tablet,extended release 24 hr venlafaxine 75 mg capsule,extended 75 - 150 mg (1 - 2 x 75 mg) PO UD 03/22/24 05/31/24 Rx release 24 hr #90 caps rosuvastatin 10 mg tablet 10 mg PO QAM #90 tabs 04/29/24 05/31/24 Rx metformin 500 mg tablet 500 mg PO BID #120 tabs 05/21/24 05/31/24 Rx acetaminophen 500 mg tablet 1,000 mg PO Q6H PRN Pain 05/31/24 05/31/24 History (Acetaminophen Extra Strength) ibuprofen 200 mg tablet (Advil) 400 mg PO Q6H PRN Pain 05/31/24 05/31/24 History omega 8-ckt-thb-fish oil 1,000 mg 1 cap PO QAM 05/31/24 05/31/24 History (120 mg-180 mg) capsule (Fish Oil) alprazolam 0.25 mg tablet 0.25 mg PO BID #60 tabs 06/24/24 Rx Past Med/Surg History Problem List (Updated 06/26/24 @ 09:49 by Spencer Geller MD) Right knee DJD Encounter for pre-operative examination Status post reverse total replacement of right shoulder (~11/2023) Status post left knee replacement (~08/2023) Urinary bladder incontinence Nocturia Renal cyst History of rotator cuff surgery Right Shoulder Arthroscopy, Rotator Cuff Repair, Subacromial Decompression (12/30/22): Grade view 1, Alanis#2, ETT 7.5, atraumatic + regional at [facility] Memory deficits Vitamin B12 deficiency (non anemic) Sensory polyneuropathy Gait disturbance Right knee DJD Sleep apnea Tendinitis of left rotator cuff Vitamin D deficiency Anxiety and depression Diabetes mellitus type 2, insulin dependent Hyperlipidemia Acid reflux Hypertension Medical History Insomnia Aortic stenosis DSE 08/2023: Moderate to severe aortic stenosis. "The severity may be more significant given the drop in blood pressure at peak dobutamine infusion." ERIC 0.79-0.82cm2, MG 20.4mmhg Urinary incontinence Memory deficits No significant issues per patient Anxiety and depression Diabetes mellitus type 2, insulin dependent IDDM Hyperlipidemia Sleep apnea No device GERD (gastroesophageal reflux disease) well controlled and stable Hypertension Surgical History H/O shoulder surgery right x 2 (last done 11/2023) History of esophagogastroduodenoscopy (EGD) H/O abdominal surgery exploratory surgery>open (d/t infertility) History of tooth extraction History of tonsillectomy History of total left knee replacement Left TKA (09/05/23): SAB at L3-4 x1 attempt + regional at [facility] History of breast biopsy Benign History of hysterectomy History of colonoscopy History of cataract surgery right/left S/P hernia repair Family History Sister Anxiety Depression Heart disease Myocardial infarction Lung disease Hypertension Mother Anxiety Depression Brother Anxiety Depression Heart disease Hypertension Father Diabetes Heart disease Hypertension Other No family history of adverse response to anesthesia Denies family history of Colon cancer Ovarian cancer Prostate cancer Breast cancer Social History Smoking Status: Never smoker Second Hand Exposure: No; Do You Dip or Chew Tobacco: No; Hx Alcohol Use: No Hx Substance Use: No Preferred Language: Turkish Communication Ability: Effective Visual Impairment: No Limitations Hearing Ability: Normal Roof Mechanic Required: No Beliefs That Will Affect Care: None marital status: Current Living Situation: Spouse current occupational status: retired 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 Physical Exam . Physical examination was a pleasant elderly female. Examination of the right knee reveals a varus alignment to her knee. Got bony hypertrophy medially. Small knee effusion. Range of motion about 10-1 20. No particular instability. No particular pain with hip motion. Examination of left knee reveals well-healed incision. No swelling. Range of motion 0-1 20. Good straight leg raise. Constitutional WD/WN, vitals as above Respiratory normal respiratory effort, lungs clear to auscultation Cardiovascular RRR, no murmur, no edema Gastrointestinal (Abdomen) normal bowel sounds, soft, nontender, no hepatosplenomegaly Results & Data Results & Data Laboratory Results . Diagnostic Findings . X-rays of the right knee were reviewed. She has advanced right knee DJD. She got complete loss of the medial joint space. She has subchondral sclerosis. Cystic changes medially. The left knee replaced looks in good position without problems. PG Care Time/CCT Total # of Minutes Spent Total Time Spent with Patient: Total time spent is greater than 50% in coordination of care (as documented) at patient's floor/unit and/or counseling patient: Coding Level of Care Code None Diagnoses Right knee DJD M17.11 Status post left knee replacement Z96.652 Status post reverse total replacement of right shoulder Z96.611
--- NOTE | 2024-06-30 08:35 | Anesthesiology Consultation ---
Date of Service June 30, 2024 Assessment & Plan Chart Review Chart Review: Acceptable Risk for Surgery (As per notes ) Consults Requested cardiac d/w Dr. Handy gradients are moderate, he feels lower risk given no ischemic sx. ASA ASA3 Proposed Anesthesia Anesthesia Type: General Regional Regional Laterality: Right Site: Adductor Canal Anesthesia Line Insertion: Arterial line (Possible ) Additional Notes Per cardiology, who is aware of and referenced notes in chart: Patient likely to have total knee arthroplasty of the right knee within the next few months. She had a stress echocardiogram last August which was low risk for ischemia. Since that time she has had left knee total arthroplasty as well as right shoulder surgery and did well. She continues without symptoms consistent with ischemia. Therefore, with low risk stress test within the past year and no symptoms she remains a low risk for myocardial ischemic complication of non-cardiovascular surgery at this time. She should proceed with surgery as indicated. We do recommend that she remain on her beta-ingrid on the day of surgery. I talked with surgeon and discussed R/B/A given the and DBT stress with ERIC of 0.78 (chart note from cardiology), would proceed with GA NOT spinal anesthesia for the knee operation with possible monitors. Pt is made aware of nature of the risk of and surgery. Pt does not have any constitutional symptoms- CP, SOB, PND History Surgery Operation Date: 06/30/24 10:40 Proposed Procedures p Right Total Knee Arthroplasty - Spencer Geller MD Height/Weight Height: 5 ft Weight: 83.3 kg Allergies Allergy/AdvReac Type Severity Reaction Status Date / Time adhesive tape Allergy Mild Skin Verified 06/28/24 11:24 redness oxycodone AdvReac Vomiting Verified 06/30/24 09:08 Medications Home Medications Medication Instructions Recorded Confirmed Last Taken Saccharomyces boulardii 250 mg 5,000 mmu cells PO DAILY 09/21/21 06/30/24 06/23/24 capsule (Daily Probiotic (S. boulardii)) insulin aspart U-100 100 unit/mL See Rx Instructions subcut DAILY 03/22/22 06/30/24 03/08/23 (3 mL) subcutaneous pen (Novolog PRN Other FlexPen U-100 Insulin aspart) cholecalciferol (vitamin D3) 25 25 mcg PO QAM 11/25/22 06/30/24 06/16/24 mcg (1,000 unit) capsule lisinopril 20 mg tablet 20 mg PO QAM #90 tabs 07/30/23 06/30/24 06/29/24 07:00 omeprazole 40 mg capsule,delayed 40 mg PO QAM #90 caps 08/13/23 06/30/24 06/30/24 07:00 release Wheeled Walker #1 ea 08/26/23 06/28/24 Unknown ezetimibe 10 mg tablet (Zetia) 10 mg PO HS #90 tabs 09/30/23 06/30/24 06/29/24 23:00 ascorbic acid (vitamin C) 500 mg 500 mg PO 3XWK 10/30/23 06/30/24 06/23/24 tablet (Vitamin C) amlodipine 10 mg tablet (Norvasc) 10 mg PO QAM #90 tabs 12/03/23 06/30/24 06/30/24 07:00 Embrace TALK test strips (blood #200 ea 12/09/23 06/28/24 Unknown sugar diagnostic) insulin NPH isoph U-100 human 100 20 - 25 unit subcut BID 12/29/23 06/30/24 06/29/24 23:00 unit/mL subcutaneous suspension 25 units (Humulin N NPH U-100 Insulin (isophane susp)) potassium chloride 10 mEq 10 meq PO QAM #30 caps 02/03/24 06/30/24 06/29/24 23:00 capsule,extended release metoprolol succinate 50 mg 50 mg PO QAM #90 tabs 03/12/24 06/30/24 06/30/24 07:00 tablet,extended release 24 hr rosuvastatin 10 mg tablet 10 mg PO QAM #90 tabs 04/29/24 06/30/24 06/29/24 23:00 metformin 500 mg tablet 500 mg PO BID #120 tabs 05/21/24 06/30/24 06/29/24 07:00 acetaminophen 500 mg tablet 1,000 mg PO Q6H PRN Pain 05/31/24 06/30/24 Unknown (Acetaminophen Extra Strength) ibuprofen 200 mg tablet (Advil) 400 mg PO Q6H PRN Pain 05/31/24 06/30/24 06/23/24 omega 5-qhl-ljs-fish oil 1,000 mg 1 cap PO QAM 05/31/24 06/30/24 06/23/24 (120 mg-180 mg) capsule (Fish Oil) alprazolam 0.25 mg tablet 0.25 mg PO BID #60 tabs 06/24/24 06/30/24 06/30/24 07:00 acetaminophen 500 mg tablet 1,000 mg (2 x 500 mg) PO TID pain 06/28/24 06/30/24 06/29/24 23:00 (Tylenol Extra Strength) 30 days #180 tabs aspirin 81 mg tablet,delayed 81 mg PO BID 45 days #90 tabs 06/28/24 06/28/24 Unknown release (Humphrey Low Dose Aspirin) cefadroxil 500 mg capsule 500 mg PO BID 7 days #14 caps 06/28/24 06/30/24 Unknown ketorolac 10 mg tablet 10 mg PO TID pain 5 days #15 tabs 06/28/24 06/30/24 Unknown ondansetron 4 mg disintegrating 4 mg PO Q8 PRN nausea #20 tabs 06/28/24 06/30/24 Unknown tablet sennosides 8.6 mg tablet (Senokot) 8.6 mg PO BID prevent constipation 06/28/24 06/30/24 Unknown 14 days #28 tabs tramadol 50 mg tablet 50 - 100 mg (1 - 2 x 50 mg) PO Q6 06/28/24 06/30/24 Unknown PRN pain #40 tabs venlafaxine 75 mg capsule,extended 75 - 150 mg (1 - 2 x 75 mg) PO UD 06/28/24 06/30/24 Unknown release 24 hr #90 caps Active Medications Generic Name Dose Route Start Last Admin Trade Name Freq PRN Reason Stop Dose Admin Acetaminophen 1,000 mg 06/30/24 06:00 06/30/24 09:37 Acetaminophen 500 Mg Tab PO 06/30/24 18:00 1,000 mg PREOP LO Administration Celecoxib 200 mg 06/30/24 06:00 06/30/24 09:37 Celebrex 200 Mg Cap PO 06/30/24 18:00 200 mg PREOP LO Administration Dexamethasone Sodium Phosphate 10 mg 06/30/24 06:00 06/30/24 09:37 DexamethasonePf 10 Mg/Ml Vial IV 06/30/24 18:00 10 mg PREOP LO Administration Famotidine 20 mg 06/30/24 06:00 06/30/24 09:37 Famotidine 20 Mg Tab PO 06/30/24 18:00 20 mg PREOP LO Administration Lactated Ringer's 1,000 mls @ 60 mls/hr 06/30/24 06:00 06/30/24 09:41 Lr IV 06/30/24 22:39 Not Given .[id number] LO Lactated Ringer's 1,000 mls @ 15 mls/hr 06/30/24 06:00 06/30/24 09:37 Lr IV 07/01/24 05:59 15 mls/hr .Q24H LO Administration Metoclopramide HCl 10 mg 06/30/24 06:00 06/30/24 09:44 Metoclopramide Hcl 10 Mg Tablet PO 06/30/24 18:00 10 mg PREOP LO Administration NPO Last Intake of Solids Comment: Greater then 8 hrs Past Medical History Medical History Insomnia Aortic stenosis DSE 08/2023: Moderate to severe aortic stenosis. "The severity may be more significant given the drop in blood pressure at peak dobutamine infusion." ERIC 0.79-0.82cm2, MG 20.4mmhg Urinary incontinence Memory deficits No significant issues per patient Anxiety and depression Diabetes mellitus type 2, insulin dependent IDDM Hyperlipidemia Sleep apnea No device GERD (gastroesophageal reflux disease) well controlled and stable Hypertension Exercise / Class Metabolic Activity III < 4 Walking/Shop/Light housework Past Family History Family History Sister Anxiety Depression Heart disease Myocardial infarction Lung disease Hypertension Mother Anxiety Depression Brother Anxiety Depression Heart disease Hypertension Father Diabetes Heart disease Hypertension Other No family history of adverse response to anesthesia Denies family history of Colon cancer Ovarian cancer Prostate cancer Breast cancer Past Surgical History Surgical History H/O shoulder surgery right x 2 (last done 11/2023) History of esophagogastroduodenoscopy (EGD) H/O abdominal surgery exploratory surgery>open (d/t infertility) History of tooth extraction History of tonsillectomy History of total left knee replacement Left TKA (09/05/23): SAB at L3-4 x1 attempt + regional at [facility] History of breast biopsy Benign History of hysterectomy History of colonoscopy History of cataract surgery right/left S/P hernia repair Past Anesthesia History No Hx of Anesthesia Complications History of PONV No Hx of PONV and No Hx of Motion Sickness Social History Smoking Status: Never smoker Do You Dip or Chew Tobacco: No Hx Alcohol Use: No Hx Substance Use: No substance use type: does not use Physical Exam Vital Signs Last Vital Signs Temp 36.6 C 06/30/24 09:22 Pulse 79 06/30/24 09:22 Resp 20 06/30/24 09:22 BP 150/71 H 06/30/24 09:22 Pulse Ox 97 06/30/24 09:22 O2 Del Method Room Air 06/30/24 09:22 Constitutional no acute distress ENMT Mouth: no dentition abnormality Thyromental Distance: < 3.5 Finger Breadths Mallampati Class: II Short chin, anterior airway Neck + shortened thyromental distance Respiratory normal respiratory effort Auscultation: lungs clear to auscultation bilaterally and + breath sounds absent Cardiovascular Rate/Rhythm: regular rate and regular rhythm Aortic flow mumur Neurologic moves all extremities Psychiatric Orientation: alert and oriented x 3 Testing Laboratory Results 06/30/24 08:59 POC Glucose 92 Electrocardiogram Date: 06/08/24 Findings: + NSR @ (77bpm) RBBB Chest X-Ray Date: 11/12/23 FINDINGS: No pneumothorax. No pleural effusions. The lungs are clear. The heart is normal in size. There are calcifications within the aortic knob. No acute fractures. Mild elevation of the right hemidiaphragm, unchanged. IMPRESSION: No acute process. Echocardiogram Date: 03/09/23 EF 55-60%. No RWMA. No LVH. Mild MR. Normal estimated RVSP. Moderate aortic stenosis (ERIC 1.0-1.1cm2, MG 33.1 mmhg). Stress Test Date: 09/01/23 Type: DSE Normal dobutamine echocardiogram without evidence of inducible ischemia. Moderate concentric LVH. Moderate to severe aortic stenosis. "The severity may be more significant given the drop in blood pressure at peak dobutamine infusion ." ERIC 0.79-0.82cm2, MG 20.4mmhg. Mild MR. RVSP normal. (Discussed with Dr. Pati- patient can proceed as scheduled without additional testing)
[~2024-06-30 08:40] MED LIST changes: +ATROPINE SULFATE 0.1 MG/ML 10ML SYR IV PRN; +HYDROmorphone INJ 1 MG/ML SYRINGE IV PRN; +ONDANSETRON INJ 2 MG/ML 2 ML VIAL IV PRN; +ROPIVACAINE 0.5% 5 MG/ML 30 ML VIAL ONE; +ePHEDrine sulfate 50 MG/ML AMP IV PRN; +fentaNYL citrate PF 100 MCG/2 ML VIAL IV PRN
--- NOTE | 2024-06-30 09:30 | History & Physical Bridge Note ---
Date of Service June 30, 2024 History & Physical Bridge Note I have examined the patient, reviewed the History & Physical and in the interval since the performance of the History & Physical I have noted the following changes of clinical significance: no changes noted
[2024-06-30] MEDS: CeleBREX 200 MG CAP PO SCH (09:37)
[2024-06-30] MEDS: dexAMETHasone**PF** 10 MG/ML VIAL IV SCH (09:37)
[2024-06-30] MEDS: ACETAMINOPHEN 500 MG TAB PO SCH ×2 (09:37→21:54)
[2024-06-30] MEDS: FAMOTIDINE 20 MG TAB PO SCH (09:37)
[2024-06-30] MEDS: LR 15ML/HR IV SCH (09:37)
[2024-06-30] MEDS: LR 60ML/HR IV SCH (09:41)
[2024-06-30] MEDS: METOCLOPRAMIDE HCL 10 MG TABLET PO SCH (09:44)
[2024-06-30] MEDS ORDERED: PROPOFOL IV EMULSION 10 MG/ML 20 ML VIAL IV ONE (10:30)
[2024-06-30] MEDS ORDERED: ROCURONIUM BROMIDE 10 MG/ML 5 ML VIAL IV ONE (10:30)
[2024-06-30] MEDS ORDERED: LIDOCAINE 2% 2 ML VIAL/AMP(20MG/ML) INFIL ONE (10:30)
[2024-06-30] MEDS ORDERED: ONDANSETRON INJ 2 MG/ML 2 ML VIAL ONE (10:30)
[2024-06-30] MEDS ORDERED: fentaNYL citrate PF 100 MCG/2 ML VIAL ONE ×2 (12:01→12:55)
[2024-06-30] MEDS: ceFAZolin 2000MG 2,000 MG/15 ML SYR IV SCH ×2 (12:15→21:53)
[2024-06-30] MEDS ORDERED: PHENYLEPHRINE 100MCG/ML 5ML SYR ONE (12:46)
[2024-06-30] MEDS ORDERED: ePHEDrine sulfate 50 MG/5 ML SYR ONE (12:46)
[2024-06-30] MEDS ORDERED: METOPROLOL TARTRATE 1 MG/ML VIAL IV ONE (12:54)
[2024-06-30] MEDS: ORTHO JOINT ANESTHETIC ONE (12:58)
[2024-06-30] MEDS: ROPIV 0.5% 246mg, Ketorolac 30mg, EPINEPHrine 0.5mg in NSS INFIL SCH (13:19)
[2024-06-30] MEDS: TRANEXAMIC ACID 1,000 MG **IV Intra-op IV SCH (13:19)
[2024-06-30] MEDS ORDERED: SUGAMMADEX SODIUM 200 MG/2 ML VIAL IV ONE (13:39)
--- NOTE | 2024-06-30 14:27 | Operative Report ---
PG Post Operative Report Pre & Post Diagnosis Operation Date: 06/30/24 10:40 Pre-Op Diagnosis: Right knee Degenerative Joint Disease Post-Op Diagnosis: Right knee Degenerative Joint Disease I identified the patient and participated in the time-out.: Yes Procedure Operation Date: 06/30/24 10:40 Actual Procedures p Right Total Knee Arthroplasty(Right) - Spencer Geller MD Surgeon Spencer Geller MD Central Supply Worker Hernán Orellana PA-C Estimated Blood Loss 50 Findings Consistent with Post-Op Diagnosis Operative findings revealed destruction of the medial tibial plateau. She had extensive grade 4 [id number] disease primarily the medial compartment. Slight flexion contracture. Moderate-sized joint effusion. Specimens Right knee sent for pathology. Anesthesia Type General Regional Complications none Disposition Accompanied Patient To Recovery: No Indications The patient is an 78-year-old female whose had a long history of increasing bilateral knee pain discomfort described to gotten worse over time. She failed all conservative measures. X-rays show advanced bilateral knee DJD. She had her left knee replaced in August and is done extremely well from this. She continued to be limited by right knee and she elected proceed with total knee arthroplasty. Description of Procedure Operative implants consist of: 1 Biomet Vanguard size 57.5 right posterior stabilized femoral component. 2. Biomet size 63 tibial tray. 3. 10 mm posterior stabilized polyethylene insert. 4. 28 x 8 all poly patella. The patient was taken the op room, identified, placed on the operating table in the supine position. All conductors were appropriately padded. IV antibiotics fibra anesthesia team. An adductor canal block had provided in the holding area. A general anesthetic was implemented due to her significant aortic stenosis. A Marcano catheter was then placed in sterile fashion. Right thigh tent was then placed. The right lower extremities then prepped and draped in usual sterile fashion. The right leg was elevated and exsanguinated with use of an Esmarch and a turn was placed at 300 mmHg. An anterior approach to the right knee was then performed to longitudinal incision centered over the patella. Sharp dissection was carried through subcutaneous tissues down to the extensor mechanism. A medial parapatellar arthrotomy incision was made. Some subperiosteal dissection was carried out medially. The fibroid was resected from Neath patella tendon. Lateral patellofemoral ligament was released. Patella subluxated laterally and the knee was flexed. The osteophytes taken off distal femur. The ACL and PCL were released from the distal femur and the tibia subluxated anteriorly. External treatment LYMErix then placed on the anterior face the tibia and adjusted 12 mm medially. The proximal tibial cut was made essentially flush with the most efficient aspect medial tibial plateau. Some osteophytes taken off medial and posterior medially. The tibia sized to a size 63. Attention drawn the femur. The distal femur stem with a sharp drill. Intramedullary canal was suction. A right 5 degree valgus cutting guide was placed. The distal femoral cutting block was pinned in place. This femoral cut was made take an additional 3 mm of bone off distal femur. The femur was then sized to a size 57-1/2. The AP cutti ng block was pinned parallel to the epicondylar axis which was 3 degrees of external rotation. The anterior cut, anterior chamfer, posterior cut, posterior chamfer cuts were made. The box cutting guide was placed and just slight lateral and the box cut was made. The knee was flexed. The remnants of the medial and lateral menisci were excised. The osteophytes taken off the posterior aspect the femur. Trial femoral component was placed. The tibial tray was pinned in Grace external rotation and the drill and stem punch were used to create defect in the proximal tibia for the tibial tray. Knee was then trialed and the 10 mm insert fit most appropriately. Attention drawn the patella. The patella was cleaned of all soft tissue. Patella thickness measured 18 mm in thickness was cut down to 12. It was sized to a size 28 patella. The lug holes were drilled for 28 patella. The lateral osteophytes removed. Patella button was placed. Knee was taken through range of motion patella tracked nicely with no thumbs test. Attention drawn to placement permanent components. All trial components were removed. Bone plug was placed into this femur limit blood loss. A double batch Palacos G cement was mixed. Biomet Vanguard size 57.5 right posterior Byce femoral component, a size 63 tibial tray, a 10 mm posterior stabilized polyethylene insert, and 28 x 8 all poly patella then is a cemented in place. The knee was brought out into full extension till cement hardened. Final cement check was then performed. Pericapsular tissues were injected with total of 100 cc of Ortho mix. Patient did receive 1 g of tranexamic acid. The tourniquet was then let down for a final tourniquet time of 54 minutes. Hemostasis assured use electrocautery. Extensor Meclomen closed with combination 1 PDS suture #0 Vicryl suture in [id number] fashion. Extensor Meclomen checked found be intact. Subcutaneous tissue then closed with 2 Dexon suture in a buried interrupted fashion skin was closed skin nemesio. The leg was then cleaned and dried and a sterile dressing with Xeroform, 4 fours, sterile cast padding and Vito bandage were applied. Patient then transferred to the recovery room in stable condition. Patient tolerated the procedure well and there were no complications. Hernán Orellana, my physician assistant activities director, was present for the entire procedure. His assistance was essential and required for appropriate patient positioning, prepping and draping, surgical exposure, performing the technical details of the operation, placement the implants, closure of the wound, and placement of the sterile bandage. I attest to the content of the Intraoperative Record and any orders documented therein. Any exceptions are noted below.
--- NOTE | 2024-06-30 14:45 | XRay Report ---
XR knee RT 1 or 2V routine CLINICAL HISTORY: Surgical Post Op COMPARISON: None pertinent FINDINGS: 2 views of the right knee demonstrate a total knee arthroplasty with satisfactory position ing and alignment of the prosthetic components. Postoperative changes are noted in the soft tissues. IMPRESSION: Satisfactory postop appearance. ACT 112: Negative or not required by law. Electronically signed by: Sridevi Soler M.D. 06/30/2024 2:44 PM
--- NOTE | 2024-06-30 14:57 | Anesthesiology Progress Note ---
Date of Service June 30, 2024 Anesthesia Post Procedure Vital Signs Vital Signs: Temp Pulse Pulse Resp BP Pulse Ox O2 Del Method 06/30/24 14:50 97 H 16 154/67 H 94 Nasal Cannula 06/30/24 14:40 36.4 C L 97 H 16 165/83 H 96 Nasal Cannula 06/30/24 14:30 99 H 20 159/74 H 97 Oxymask 06/30/24 14:24 36.1 C L 94 H 18 167/102 H 93 Oxymask 06/30/24 09:22 36.6 C 79 20 150/71 H 97 Room Air O2 Flow Rate 06/30/24 14:50 2 06/30/24 14:40 2 06/30/24 14:30 6 06/30/24 14:24 10 06/30/24 09:22 Pain Intensity Right Knee: Pain Intensity: 5 Transfer of Care Handoff Completed per policy Notes Mental Status: alert / awake / arousable Patient Amnestic to Procedure: Yes Nausea / Vomiting: adequately controlled Pain: adequately controlled Airway Patency, RR, SpO2: stable & adequate BP & HR: stable & adequate Hydration State: stable & adequate Anesthetic Complications: no major complications apparent and Pt Satisfied with anesthetic care Notes: No intra-operative events
[2024-06-30] MEDS ORDERED: bisacodyL 10 MG SUPP PR PRN (15:45)
[2024-06-30] MEDS ORDERED: traMADol HCL 50 MG TABLET PO PRN (15:45)
[2024-06-30] MEDS ORDERED: ALUMINUM/MAGNESIUM SUSP 30 ML UDC PO PRN (15:45)
[2024-06-30] MEDS ORDERED: CARBOHYDRATES FOR HYPOGLYCEMIA PO PRN (15:45)
[2024-06-30] MEDS ORDERED: GLUCOSE 40% GEL 15 GM TUBE PO PRN (15:45)
[2024-06-30] MEDS ORDERED: NALOXONE HCL 0.4 MG/1 ML VIAL/CARP IV PRN (15:45)
[2024-06-30] MEDS ORDERED: ASCORBIC ACID 500 MG TAB PO SCH (15:45)
[2024-06-30] MEDS ORDERED: HYDROmorphone INJ 0.5 MG/0.5 ML SYR IV PRN (15:45)
[2024-06-30] MEDS ORDERED: ONDANSETRON INJ 2 MG/ML 2 ML VIAL IV PRN (15:45)
[2024-06-30] MEDS ORDERED: GLUCAGON FOR INJ 1 MG VIAL SQ PRN (15:45)
[2024-06-30] MEDS ORDERED: DEXTROSE 50% 50 ML SYRINGE IV PRN (15:45)
[2024-06-30] MEDS ORDERED: MAGNESIUM HYDROXIDE SUSP 30 ML UDC PO PRN (15:45)
[2024-06-30] MEDS ORDERED: GLUCOSE 10 TAB/TUBE PO PRN (15:45)
[2024-06-30] MEDS ORDERED: METOCLOPRAMIDE HCL INJ 5 MG/ML 2 ML VIAL IV PRN (15:45)
[2024-06-30] MEDS ORDERED: NON-FORMULARY MEDICATION (Insulin Aspart U-100 [Novolog Flexpen U-100 Insulin] 100 unit/mL SQ PRN (15:45)
[2024-06-30] MEDS ORDERED: PHARMACY GLYCEMIC MGMT CONSULT PRN (15:45)
--- NOTE | 2024-06-30 16:11 | Pharmacy Report ---
Pharmacy Glycemic Short Note 2 - Date of Service June 30, 2024 - Glycemic Short BSG Results (Last 24 hours): 06/30/24 06/30/24 08:59 14:27 POC Glucose 92 238 H OUTPATIENT ANTIDIABETIC REGIMEN: * NPH 20-25 units SC BIDM * Novolog SSI * Metformin 500 mg PO BIDM HbA1c: 7.4% (06/08/24) ASSESSMENT: * RG is an 78 year old female POD #0 s/p right total knee arthroplasty * Received 10 mg IV dexamethasone preoperatively, ordered 10 mg IV x 1 tomorrow morning (07/01/24) * Preop blood sugar of 92 mg/dL, postop blood sugar of 238 mg/dL * Will be aggressive with initial insulin regimen given apparent hyperglycemic response to IV steroid PLAN FOR INPATIENT GLYCEMIC CONTROL: * Hold outpatient oral diabetes medications * Basal insulin * Lantus 30 units SC x 1 * Reassess in AM * Bolus insulin * NovoLog per scale ACHS or Q6hrs while NPO * Goal Range: Low 110 mg/dL - High 140 mg/dL * Correction Factor: 20 mg/dL/unit * Nutritional / Prandial insulin per carb ratio of 1 unit per 6 grams CHO consumed
[2024-06-30] MEDS: INSULIN ASPART PER UNIT CHARGE SC SCH (18:09)
[2024-06-30] MEDS: LANTUS PER UNIT CHARGE SC ONE (18:10)
[2024-06-30] MEDS: KETOROLAC TROMETHAMINE 15 MG/ML VIAL IV SCH (18:12)
[2024-06-30] MEDS ORDERED: SENNA 8.6 MG TAB PO SCH (21:00)
[2024-06-30] MEDS ORDERED: INSULIN HUMAN NPH SQ SCH (21:00)
[2024-06-30] MEDS: TRANEXAMIC ACID / 0.7% NACL 1,000 MG/100 ML BAG IV SCH (21:44)
[2024-06-30] MEDS: EZETIMIBE 10 MG TAB PO SCH (21:46)
[2024-06-30] MEDS: VENLAFAXINE HCL XR 75 MG CAPXR PO SCH (21:46)
[2024-06-30] MEDS: ASPIRIN 81 MG ECTAB PO SCH (21:46)
[2024-06-30] MEDS: ALPRAZolam 0.25 MG TABLET PO SCH (21:53)
[2024-06-30] MEDS: DOCUSATE SODIUM 100 MG CAP PO SCH (21:53)
[2024-06-30] MEDS: SENNA 8.6 MG TAB PO SCH (21:54)
[2024-07-01 06:36] LABS: Hematocrit (blood only) 29.7 % (37.0-47.0); Hemoglobin 9.9 g/dl (12.0-16.0); Mean Corpuscular Hemoglobin 30.1 pg (25.0-34.0); Mean Corpuscular Hgb Conc 33.3 g/dL (32.0-36.0); Mean Corpuscular Volume 90.3 fL (80.0-100.0); Mean Platelet Volume 10.4 fL (9.4-12.4); Platelet Count 290 K/uL (130-400); RDW Coefficient of Variation 14.3 % (11.5-14.5); RDW Standard Deviation 47.1 fL (36.4-46.3); Red Blood Count 3.29 M/uL (4.20-5.40); White Blood Count 13.43 K/ul (4.8-10.8)
[2024-07-01 07:00] LABS: BUN Creatinine Ratio 33.3 (10-20); Calcium 8.8 mg/dl (8.6-10.3); Creatinine Clr Calc Pharmacy 49.6 ml/min; Potassium 4.7 mmol/L (3.5-5.1)
--- NOTE | 2024-07-01 07:29 | Orthopedic Progress Note ---
Date of Service July 01, 2024 Assessment & Plan (1) Status post right knee replacement: Plan: 78-year-old female postop day 1 from a right knee replacement doing pretty well. Pains controlled. As she is neurologically intact. Plan: 1. DVT prophylaxis including thigh-high teds, SCDs, aspirin twice a day. 2. PT/OT. Weight-bear as tolerated. Right total knee protocol. 3. Pain control. Doing okay with current pain regimen. 4. Disposition. Plan is to discharge to home with some home health. Admission and Anticipated Discharge Date Admission Date: June 30, 2024 Subjective 78-year-old female postop day 1 from right knee replacement. She is doing quite well. Reports minimal pain. Had a good night. Hoping to go home today. No chest pain or shortness of breath. Not feeling dizzy or lightheaded. Physical Exam Physical Exam: Examination was a pleasant spry 78-year-old female. She is lying in bed this morning and doing leg lifts. Examination of the right leg reveals the leg to be well aligned. Dressings clean dry and intact. She can dorsiflex and plantarflex her foot appropriately. She is neurologically intact. Respiratory: normal respiratory effort, lungs clear to auscultation Cardiovascular: RRR, no murmur, no edema Gastrointestinal (Abdomen): normal bowel sounds, soft, nontender, no hepatosplenomegaly Results & Data Vital Signs (Past 12 Hours) Vital Signs Temp Pulse Resp BP Pulse Ox O2 Del Method 07/01/24 04:22 36.7 C 86 18 125/73 97 Room Air 07/01/24 00:00 36.7 C 92 H 18 113/66 95 Room Air 06/30/24 21:45 Room Air 06/30/24 19:47 36.4 C L 95 H 18 117/71 96 Room Air Laboratory Results Hemoglobin is 9.9. Hematocrit is 29.7. Electrolytes are stable.
[2024-07-01] MEDS: dexAMETHasone 10 MG in SYRINGE 0 ML IV SCH (07:57)
[2024-07-01] MEDS: SACCHAROMYCES BOULARDII 250 MG CAP PO SCH (07:58)
[2024-07-01] MEDS: METOPROLOL SUCC 50MG EXT REL TAB PO SCH (07:58)
[2024-07-01] MEDS: amLODIPine BESYLATE 5 MG TAB PO SCH (07:58)
[2024-07-01] MEDS: PANTOprazole 40 MG TAB PO SCH (07:59)
[2024-07-01] MEDS: lisinopril 20 MG TAB PO SCH (07:59)
[2024-07-01] MEDS: VENLAFAXINE HCL XR 75 MG CAPXR PO SCH (07:59)
[2024-07-01] MEDS: OMEGA-3 (PURIFIED FISH OIL) 1 GM CAP PO SCH (07:59)
[2024-07-01] MEDS: CHOLECALCIFEROL 25 MCG (1000 UNITS) TAB PO SCH (07:59)
[2024-07-01] MEDS: MULTIVITAMIN TAB PO SCH (07:59)
[2024-07-01 08:01] VITALS: BP 147/74; RESP 20
[2024-07-01] MEDS: ROSUVASTATIN CALCIUM 10 MG TAB PO SCH (08:01)
[2024-07-01] MEDS: POTASSIUM CHLORIDE 10 MEQ TABCR PO SCH (08:11)
[2024-07-01 08:35] VITALS: PULSE 85; TEMP 97.5; O2SAT 96
[2024-07-01] MEDS: LANTUS PER UNIT CHARGE SC ONE (09:08)
--- NOTE | 2024-07-02 10:19 | Discharge Summary ---
Date of Service July 01, 2024 Admission HPI (Per Admitting) . The patient is an 78-year-old female who presents for follow-up and treatment of her knees. Please now 8+ months out from the left knee replacement which is done well. She continues to be bothered by persistent right knee pain and discomfort. As she becomes more active she is having more pain with this. She has had conservative care in the past which has not much. She is happy with her other knee would like to proceed with right knee replacement. Admission Exam (Per Admitting) . Physical examination was a pleasant elderly female. Examination of the right knee reveals a varus alignment to her knee. Got bony hypertrophy medially. Small knee effusion. Range of motion about 10-1 20. No particular instability. No particular pain with hip motion. Examination of left knee reveals well-healed incision. No swelling. Range of motion 0-1 20. Good straight leg raise. Principal Diagnosis Same as "Discharge Diagnosis" noted below under Discharge Instructions. Discharge Data Procedures Performed Operation Date: 06/30/24 10:40 Actual Procedures p Right Total Knee Arthroplasty(Right) - Spencer Geller MD Ordered Studies 06/30/24 05:00 US - OR guided needle placemen Routine Hospital Course (1) Status post right knee replacement: On June 30, 2024 Dorita arrived at [facility] underwent a right total knee arthroplasty performed by Dr. Geller. She had a general anesthetic. Postoperatively, she was started on aspirin for DVT prophylaxis and transferred to the general orthopedic floor in stable condition. Her hospital course was uneventful. On postoperative day #1, her vital signs were stable and her pain was well-controlled. She participated well physical therapy working on ambulation and range of motion exercises. She was then discharged home in stable condition. She will follow-up with Dr. Geller in 2 to 3 weeks for continued postoperative management or sooner if needed. PG Care Time/CCT Total # of Minutes Spent Total Time Spent with Patient: Total time spent is greater than 50% in coordination of care (as documented) at patient's floor/unit and/or counseling patient: Discharge Plan Discharge Items Patient Disposition: Home - Home Health Services Reason For Visit: Right Knee Osteoarthritis Discharge Diagnosis: Right Knee Replacement Activity: Per Instructions section Weightbearing: Full weightbearing Non-emergency contact: Surgeon Call non-emergency contact if: you have any medication questions Follow-up/Referrals: Liilan Oh MD [Primary Care Provider] - Diet: Carb Consistent or DM2 Addtl Attending Provider Instructions: ACTIVITY RECOMMENDATIONS: Diet: * You may resume previous diet. Physical Therapy: * You will go to physical therapy three times each week for four to six weeks after your surgery in order to regain your knee range of motion and to retrain your knee to work properly. * It is just as important to make sure you are getting your knee perfectly straight as it is to regain your knee bend. * Taking a pain pill an hour before therapy can help you have a more productive and comfortable therapy session. Home Exercise: * You were shown a series of exercises (heel props, heel slides, etc.) in the hospital. Do these exercises three to four times each day including the exercises you were shown in physical therapy. Walking: * Get up and walk several times each day. For the first four weeks, try not to stand or walk for more than one hour at a time. If you do stand or walk for more than one hour, you will not hurt anything, but your knee and leg will likely swell. * As you feel comfortable, you may change from the walker or crutches to a cane and then to independent walking. MEDICATIONS: New Medicine: * You will likely be taking one or more of these medications: 1. Tramadol - A quick and shorter-acting pain medication. Take one to two tablets every six hours to lessen your pain. 2. Aspirin - Thins your blood to lessen the chance of forming a blood clot. * The most common side effects of pain medicine and iron are nausea and constipation. If nausea or constipation is too much of a problem or if you have any questions about your new medicines or doses, call [facility] at . We will try to help you manage these issues. "VERY IMPORTANT TO READ AND REVIEW" Pain: * The immediate post-operative period after knee replacement surgery is often quite painful. * You are given a prescription for pain medicine. You should take it, as directed, when you need it, especially before physical therapy and before going to bed. Pain that interferes with sleep is very common and can last several months. * You will likely need pain medicine for the first four to six weeks. It will not stop all of the pain. The pain will lessen and as you feel better, you may change to milder pain medicine such as Tylenol. * The most common side effects of pain medicine are nausea and constipation, so don't take more than you need. SPECIAL CARE INSTRUCTIONS: TEDs/Elastic Stockings: * The white elastic stockings help limit swelling and prevent blood clots from forming in your legs. The more you wear them, the more they work. * Wear them for six weeks after knee replacement surgery and four weeks after partial knee replacement. Incision Site Care: * Remove dressing postoperative day 2 and then shower. Keep direct shower pressure off the incision site. * After showering, cover nemesio with dry gauze and change daily or more frequently if the dressing is getting saturated with drainage. * Use the RAFAEL stockings to hold dressing in place. DO NOT apply tape on the skin. * May completely stop using bandage if wound is dry and no drainage * [place] are removed between 2 and 3 weeks post-op. If your follow-up appointment is made before 2 weeks, please have your appointment re- scheduled. It is too early to remove the nemesio. Prevention of Infection: * Take antibiotics one hour before any dental cleaning, dental work, urological procedure, gastrointestinal procedure or any invasive surgery in order to prevent your new joint from getting infected. * You may get the antibiotics from the doctor performing the procedure or you may call our office at [phone] before and we will call in a prescriptio n to the pharmacy of your choice. Things to Watch For: * Drainage from the incision site that occurs more than one week after your surgery. * Severely increased knee/leg pain or swelling. * Increased redness at the incision site. * Fever above 102 degrees Fahrenheit. * Unusual chest pain or shortness of breath. * Unusual pain or burning with urination. Call [facility] at [phone] with any of the above problems or if you have any questions about your medicines or recovery. FOLLOW UP VISIT: Make an appointment to see your doctor for approximately two weeks after surgery for a progress check and staple removal by calling the office at [phone]. Pending Studies at Discharge: No Stand-Alone Forms: My [facility], Smoking Cessation Medications and DC Order Prescriptions: Continued lisinopril 20 mg tablet 20 mg PO QAM Qty: 90 3RF omeprazole 40 mg capsule,delayed release(DR/EC) 40 mg PO QAM Qty: 90 3RF (DME) Wheeled Walker Misc See Rx Instructions .MEDSUPPLY Qty: 1 0RF Rx Instructions: As directed ezetimibe [Zetia] 10 mg tablet 10 mg PO HS Qty: 90 3RF amlodipine [Norvasc] 10 mg tablet 10 mg PO QAM Qty: 90 3RF (DME) Embrace TALK test strips Strip See Rx Instructions .Route Qty: 200 3RF Rx Instructions: test 2 times daily potassium chloride 10 mEq capsule, extended release 10 meq PO QAM Qty: 30 5RF metoprolol succinate 50 mg tablet extended release 24 hr 50 mg PO QAM Qty: 90 3RF rosuvastatin 10 mg tablet 10 mg PO QAM Qty: 90 1RF metformin 500 mg tablet 500 mg PO BID Qty: 120 1RF Rx Instructions: Take 500 mg twice daily by mouth. alprazolam 0.25 mg tablet 0.25 mg PO BID Qty: 60 0RF sennosides [Senokot] 8.6 mg tablet 8.6 mg PO BID 14 Days Qty: 28 0RF Rx Instructions: Take two times a day to prevent/treat constipation tramadol 50 mg tablet 50 - 100 mg PO Q6 PRN (Reason: pain) Qty: 40 0RF Rx Instructions: Take as needed for pain ketorolac 10 mg tablet 10 mg PO TID 5 Days Qty: 15 0RF Rx Instructions: Take 3 times per day with food for 5 days to lessen pain and swelling. ondansetron 4 mg tablet,disintegrating 4 mg PO Q8 PRN (Reason: nausea) Qty: 20 1RF Rx Instructions: Take as needed for nausea aspirin [Humphrey Low Dose Aspirin] 81 mg tablet,delayed release (DR/EC) 81 mg PO BID 45 Days Qty: 90 0RF Rx Instructions: Take to prevent blood clots. acetaminophen [Tylenol Extra Strength] 500 mg tablet 1,000 mg PO TID 30 Days Qty: 180 0RF Rx Instructions: Take 3 times per day to lessen pain. cefadroxil 500 mg capsule 500 mg PO BID 7 Days Qty: 14 0RF Rx Instructions: Take 1 cap twice a day to prevent infection insulin aspart U-100 [Novolog FlexPen U-100 Insulin] 100 unit/mL (3 mL) insulin pen See Rx Instructions subcut DAILY PRN (Reason: Other) Patient Comments: takes if bsg elevated Rx Instructions: Inject per sliding scale PRN Humulin N NPH U-100 Insulin 100 unit/mL suspension 20 - 25 unit subcut BID Patient Comments: per sliding scale Rx Instructions: Inject 20-25 units BID Saccharomyces boulardii [Daily Probiotic (S. boulardii)] 250 mg capsule 5,000 mmu cells PO DAILY venlafaxine 75 mg capsule,extended release 24hr 75 - 150 mg PO UD Qty: 90 5RF Rx Instructions: Take 2 caps daily am and 1 cap daily in pm orally; cholecalciferol (vitamin D3) 25 mcg (1,000 unit) capsule 25 mcg PO QAM ascorbic acid (vitamin C) [Vitamin C] 500 mg Tablet 500 mg PO 3XWK omega [id number] oil [Fish Oil] 1,000 (120-180) mg Capsule 1 cap PO QAM Discontinued acetaminophen [Acetaminophen Extra Strength] 500 mg Tablet 1,000 mg PO Q6H PRN (Reason: Pain) ibuprofen [Advil] 200 mg Tablet 400 mg PO Q6H PRN (Reason: Pain) No Action (DME) Wheeled Walker Misc See Rx Instructions .MEDSUPPLY Qty: 1 0RF Rx Instructions: As directed Neetu/Other Patient Handouts: DVT Post Op Prevention Admission Data Admit Date/Time: 06/30/24 14:18 Attending Provider: Spencer Geller Admit Provider: Spencer Geller Primary Care Provider: Lilian Oh Other Interventions: Discharge Summary Assessment (RN) Last Done: 07/01/24 10:57
== END 2024-07-01 12:32 | disposition home health service (06) ==
LOC: ASU 08:40 → 3E 08:40